=== PATIENT | female | born 1950 | race Caucasian/White ===

== ENCOUNTER 2016-11-06 14:12 | Emergency (ER) | payer MEDICARE, OTHER ==
[2016-11-06 14:22] VITALS: BP 122/82; RESP 16
--- NOTE | 2016-11-06 16:00 | CT ---
EXAMINATION TYPE: CT brain cspine wo con DATE OF EXAM: 11/06/2016 COMPARISON: Prior CT brain 06/04/2005, MR brain 10/16/2010 HISTORY: Fall today with posterior injury CT DLP: 1321.4 mGycm Automated exposure control for dose reduction was used. TECHNIQUE: CT scan of the head and cervical spine are performed without contrast. FINDINGS: There is no acute intracranial hemorrhage, mass effect, or midline shift identified. Cor tical atrophy is likely age-related. There are cerebral vascular calcifications present. The ventricl es and sulci are within normal limits in size. The globes are intact and the visualized sinuses are clear. Cervical spine is visualized in its entirety from C1 through upper thoracic levels and demonstrates s atisfactory alignment without evidence of acute fracture or dislocation. Prevertebral soft tissue ap pears within normal limits. There is multilevel spondylosis with some loss of disc height and interv ertebral levels compatible with degenerative disc disease, multilevel foraminal encroachment is prese nt. No significant spinal stenosis. The C1-C2 articulation is unremarkable. IMPRESSION: 1. There is no acute fracture or dislocation evident in the cervical spine. 2. No acute intracranial hemorrhage, mass effect, or midline shift is seen.
--- NOTE | 2016-11-06 16:30 | ED ---
Fall HPI - General Chief Complaint: Fall Stated Complaint: Fall-Head Pain Source: patient, family Mode of arrival: wheelchair - History of Present Illness Initial Comments: 66-year-old female with past medical history hyperlipidemia, hypertension, seizure disorder, tremor disorder presented for evaluation of fall from standing. [place] programs that her longterm goes to. She states that she had no lightheadedness, dizziness, syncope but lost her balance and fell backwards landing on her back and hitting the back of her head on the ground. She denies any loss of consciousness, change in vision, headache, neck pain, back pain, lower extremity weakness, GI irregularities, or saddle anesthesia. - Related Data Home Medications Medication Instructions Recorded Confirmed Aspirin [Aspir-Low] 81 mg PO DAILY@0800 04/19/15 11/06/16 Cholecalciferol [Vitamin D3] 1,000 unit PO DAILY@0804/19/15 11/06/16 Darifenacin Hydrobromide [Enablex] 7.5 mg PO DAILY@0804/19/15 11/06/16 Gabapentin 300 mg PO TID@0800,1600,199904/19/15 11/06/16 Propranolol HCl [Inderal LA] 120 mg PO DAILY@79904/19/15 11/06/16 Simvastatin 40 mg PO DAILY@0804/19/15 11/06/16 Vitamin B Complex 1 cap PO DAILY@0800 04/19/15 11/06/16 ARIPiprazole [Abilify] 5 mg PO HS@2100 11/06/16 11/06/16 Betamethasone/Propylene Glyc 1 applic TOPICAL BID@08,199911/06/16 11/06/16 [Betamethasone Dp Aug 0.05% Lot] Clotrimazole [Clotrimazole AF] 1 applic TOPICAL BID@799,199911/06/16 11/06/16 DULoxetine HCL [Cymbalta] 60 mg PO BID@799,199911/06/16 11/06/16 LORazepam [Ativan] 0.5 mg PO DAILY PRN 11/06/16 11/06/16 Nystatin 100,000Unit/gm Cream 1 applic TOPICAL BID@799,199911/06/16 11/06/16 [Mycostatin Cream] busPIRone HCL 15 mg PO QID@08,12,16,20 11/06/16 11/06/16 Allergies Allergy/AdvReac Type Severity Reaction Status Date / Time No Known Allergies Allergy Verified 11/06/16 15:03 Review of Systems ROS Statement: Those systems with pertinent positive or pertinent negative responses have been documented in the HPI. ROS Other: All systems not noted in ROS Statement are negative. Constitutional: Denies: fever, chills Eyes: Denies: eye pain, vision change ENT: Denies: hearing loss, epistaxis Respiratory: Denies: cough, dyspnea Cardiovascular: Denies: chest pain, palpitations Endocrine: Denies: fatigue, polydipsia, polyuria Gastrointestinal: Denies: abdominal pain, nausea, vomiting Genitourinary: Denies: urgency, dysuria Musculoskeletal: Denies: back pain, arthralgia, myalgia Skin: Denies: rash, lesions Neurological: Denies: headache, weakness Psychiatric: Denies: anxiety, depression Hematological/Lymphatic: Denies: easy bleeding, easy bruising Past Medical History Past Medical History: Hyperlipidemia, Hypertension, Seizure Disorder Additional Past Medical History / Comment(s): FAILED STRESS TEST, PAST HX OF SEIZURE, NONE IN YEARS, TREMOR DISORDER History of Any Multi-Drug Resistant Organisms: None Reported Past Surgical History: Adenoidectomy, Tonsillectomy Additional Past Surgical History / Comment(s): CATARACT SX, AMPUTATED RING FINGER Past Anesthesia/Blood Transfusion Reactions: No Reported Reaction Past Psychological History: Anxiety, Depression Smoking Status: Never smoker - Past Family History Mother Family Medical History: AFIB, Myocardial Infarction ([place]) Father Family Medical History: CVA/TIA General Exam Limitations: no limitations General appearance: alert, in no apparent distress Head exam: Present: atraumatic, normocephalic, normal inspection Eye exam: Present: normal appearance, PERRL, EOMI. Absent: scleral icterus, conjunctival injection, periorbital swelling ENT exam: Present: normal exam, mucous membranes moist Neck exam: Present: normal inspection. Absent: tenderness, meningismus, lymphadenopathy Respiratory exam: Present: normal lung sounds bilaterally. Absent: respiratory distress, wheezes, rales, rhonchi, stridor Cardiovascular Exam: Present: regular rate, normal rhythm, normal heart sounds. Absent: systolic murmur, diastolic murmur, rubs, gallop, clicks GI/Abdominal exam: Present: soft, normal bowel sounds. Absent: distended, tenderness, guarding, rebound, rigid Rectal exam: Present: deferred Extremities exam: Present: normal inspection, full ROM, normal capillary refill. Absent: tenderness, pedal edema, joint swelling, calf tenderness Back exam: Present: normal inspection Neurological exam: Present: alert, oriented X3, CN II-XII intact, other ( resting tremor) Psychiatric exam: Present: normal affect, normal mood Skin exam: Present: warm, dry, intact, normal color. Absent: rash Course Vital Signs 11/06/16 11/06/16 11/06/16 14:14 15:34 16:34 Temperature 97.1 F L 97.2 F L Pulse Rate 70 70 75 Respiratory 16 18 18 Rate Blood Pressure 122/82 126/80 124/78 O2 Sat by Pulse 98 98 99 Oximetry 11/06/16 16:40 Temperature 98.6 F Pulse Rate 75 Respiratory 16 Rate Blood Pressure 122/82 O2 Sat by Pulse 99 Oximetry Medical Decision Making - Medical Decision Making 66-year-old female with history of a resting tremor presented for evaluation of a mechanical fall from standing and hitting her head on the ground. She denies any loss of consciousness, and the granulation use, or resultant head neck or back pain. She was able to get up on her own and continue ambulating however she was sent by the longterm for further evaluation. On physical examination cranial nerves II through XII are intact with the only abnormality being a resting tremor. There is no pain to palpation along the neck or back however she does have minor tenderness to the back of her head. CT head and neck obtained which showed no acute intraparenchymal hemorrhage or cervical abnormalities. The patient was reevaluated and stated she continued to feel fine and requested to be discharged home. She was informed of results and that she would be instructed to follow-up with her primary care physician but to return to this facility if her symptoms should worsen or persist. The patient and her care worker acknowledged an understanding of this information and agreed with this plan of care. Disposition Clinical Impression: Fall, Closed head injury Disposition: HOME SELF-CARE Condition: Stable Instructions: Fall Prevention for Older Adults (ED) Referrals: Charlee Morrison MD [Primary Care Provider] - 1-2 days Time of Disposition: 16:30
[2016-11-06 16:41] VITALS: PULSE 75; TEMP 98.6
== END 2016-11-06 16:40 | disposition home or self-care (01) ==
LOC: EC 14:12
DX: S09.90XA Unspecified injury of head, initial encounter (principal); E78.5 Hyperlipidemia, unspecified; I10 Essential (primary) hypertension; G40.909 Epilepsy, unspecified, not intractable, without status epilepticus; F32.9 Major depressive disorder, single episode, unspecified; F41.9 Anxiety disorder, unspecified; Z79.82 Long term (current) use of aspirin; Z79.52 Long term (current) use of systemic steroids; Z79.899 Other long term (current) drug therapy; W01.198A Fall on same level from slipping, tripping and stumbling with subsequent striking against other object, initial encounter; Y93.89 Activity, other specified; Y92.828 Other wilderness area as the place of occurrence of the external cause
CPT/HCPCS: 70450; 72125; 99283

== ENCOUNTER → 2017-01-12 | Outpatient (CLI) | payer MEDICARE, OTHER ==
--- NOTE | 2017-01-12 10:38 | MM ---
Reason for exam: additional evaluation requested from prior study. Last mammogram was performed 11 months ago. History: Patient is postmenopausal. Family history of breast cancer in mother at age 50, breast cancer in grandmother at age 50, and breast cancer in aunt at age 60. Physical Findings: Nurse did not find any significant physical abnormalities on exam. MG Diagnostic Mammo w CAD [facility] Bilateral CC and MLO view(s) were taken. Prior study comparison: February 10, 2016, bilateral MG 3d screening mammo w/cad. January 03, 2015, bilateral MG screening mammo w CAD. There are scattered fibroglandular densities. Finding: There are typically benign round calcifications in both breasts. There is no discrete abnormality. These results were verbally communicated with the patient and result sheet given to the patient on 01/12/17. ASSESSMENT: Benign, BI-RAD 2 RECOMMENDATION: Routine screening mammogram of both breasts in 1 year.
== END | disposition home or self-care (01) ==
LOC: RADMAMWWP 08:58
PROVIDERS: ATTEND Family Medicine
DX: R92.8 Other abnormal and inconclusive findings on diagnostic imaging of breast (principal)

== ENCOUNTER → 2017-10-26 | Outpatient (CLI) | payer MEDICARE, OTHER ==
--- NOTE | 2017-10-26 14:53 | BD ---
EXAMINATION TYPE: Axial Bone Density DATE OF EXAM: 10/26/2017 COMPARISON: NONE CLINICAL HISTORY: Postmenopausal female. Osteoporosis screening. Height: 62 IN Weight: 158 LBS RISK FACTORS HISTORY OF: Active: NOT ACTIVE Postmenopausal woman: UNKNOWN Take estrogen and/or progesterone medications: UNKNOWN POOR HISTORIAN. CAREGIVER HAS ONLY BEEN WITH PT FOR 3 YEARS. MEDICATIONS: Additional Medications: VIT D, CHOLESTEROL MEDS, ASPIRIN, MOOD MEDS, EXAM MEASUREMENTS: Bone mineral densitometry was performed using the [employer] System. Bone mineral density as measured about the Lumbar spine is: ----- L1-L4(G/cm2): 0.859 T Score Values are as follows: ----- L2: -3.2 ----- L3: -2.1 ----- L4: -2.2 ----- L1-L4: -2.7 Bone mineral density BASELINE Bone mineral density about the R hip (g/cm2): 0.706 Bone mineral density about the L hip (g/cm2): 0.695 T Score values are as follows: -----R Neck: -2.4 -----L Neck: -2.5 -----R Total: -1.4 -----L Total: -1.8 Bone mineral density BASELINE IMPRESSION: Osteopenia (T Score between -2.5 and -1). Values approach osteoporosis. There is slightly increased risk of fracture and the patient may be considered for treatment. Re-Screen 2-5 years. NOTE: T-SCORE=SD OF THE YOUNG ADULT MEAN.
== END | disposition home or self-care (01) ==
LOC: RADBDWWP 08:39
PROVIDERS: ATTEND Family Medicine
DX: M85.89 Other specified disorders of bone density and structure, multiple sites (principal); Z78.0 Asymptomatic menopausal state
CPT/HCPCS: 77080

== ENCOUNTER → 2018-03-01 | Outpatient (CLI) | payer MEDICARE, OTHER ==
--- NOTE | 2018-03-02 14:58 | MM ---
Reason for exam: screening (asymptomatic). Last mammogram was performed 1 year and 2 months ago. History: Patient is postmenopausal. Family history of breast cancer in mother at age 50, breast cancer in grandmother at age 50, and breast cancer in aunt at age 60. Physical Findings: A clinical breast exam by your physician is recommended on an annual basis and results should be correlated with mammographic findings. MG 3D Screening Mammo W/Cad Bilateral CC and MLO view(s) were taken. Prior study comparison: January 12, 2017, bilateral MG diagnostic mammo w CAD [facility]COL[facility]. February 10, 2016, bilateral MG 3d screening mammo w/cad. There are scattered fibroglandular densities. There is no discrete abnormality. No significant changes when compared with prior studies. ASSESSMENT: Negative, BI-RAD 1 RECOMMENDATION: Routine screening mammogram of both breasts in 1 year.
== END | disposition home or self-care (01) ==
LOC: RADMAMWWP 08:17
PROVIDERS: ATTEND Family Medicine
DX: Z12.31 Encounter for screening mammogram for malignant neoplasm of breast (principal)
CPT/HCPCS: 77063; 77067

== ENCOUNTER → 2023-03-11 | Outpatient (CLI) | payer MEDICARE, OTHER ==
--- NOTE | 2023-03-11 13:34 | BD ---
EXAMINATION TYPE: Axial Bone Density DATE OF EXAM: 03/11/2023 CLINICAL HISTORY: 73 years old Female. ICD-10 CODE: M81.0 AGE-RELATED OSTEOPOROSIS W/O CURRENT PATHO LO Height: 62" Weight: 148.5lbs FRAX RISK QUESTIONS: Alcohol (3 or more units per day): No Family History (Parent hip fracture): Yes, Father Glucocorticoids (More than 3mos): No (Ex: prednisone, prednisolone, methylprednisolone, dexamethasone, and hydrocortisone). History of Fracture in Adulthood: Yes, finger Secondary Osteoporosis: 1. Type 1 Diabetes: No 2. Hyperthyroidism: No 3. Menopause before 45: No 4. Malnutrition: No 5. Chronic liver disease: No Rheumatoid Arthritis: Yes Current Tobacco Use: No RISK FACTORS HISTORY OF: Hip Fracture (Right/Left): No Spine Fracture: No History of Wrist Fracture: No Surgery to Spine/Hip(right/left)/Wrist (right/left): No Family History of Osteoporosis: Unknown Active: Unknown Diet low in dairy products/other sources of calcium: No Postmenopausal woman: Yes Lost more than 2 inches in height since high school: Unknown Frequent falls: No Poor Health: Slightly Hyperparathyroidism: No Adrenal Insufficiency: No MEDICATIONS: Prednisone or other steroids: No Thyroid Medications: No Osteoporosis Medications: Fosamax Additional Medications: Medication list scanned into PACS Additional History: Patient is on treatment but was not aware of that information until after perform ing the bone density scan. senior care patient, answered history questions to the best of her and care takers ability. EXAM MEASUREMENTS: Bone mineral densitometry was performed using the [employer] System. Bone mineral density as measured about the Lumbar spine is: ----- L1-L4(G/cm2): 1.058 T Score Values are as follows: ----- L1: -1.7 ----- L2: -2.3 ----- L3: -0.6 ----- L4: 0.0 ----- L1-L4: -1.0 Z Score Values are as follows: ----- L1: -0.1 ----- L2: -0.6 ----- L3: 1.0 ----- L4: 1.7 ----- L1-L4: 0.6 Bone mineral density has: increased 23.2% since study of: 10/26/2017 Bone mineral density about the R hip (g/cm2): 0.877 Bone mineral density about the L hip (g/cm2): 0.813 T Score values are as follows: -----R Neck: -2.1 -----L Neck: -2.1 -----R Total: -1.0 -----L Total: -1.5 Z Score values are as follows: -----R Neck: -0.3 -----L Neck: -0.3 -----R Total: 0.6 -----L Total: 0.1 Bone mineral density has: increased 4.8% since study of: 10/26/2017 FRAX%s: The graph provided illustrates a 20.9% chance for a major osteoporotic fx and a 5.1% chance f or the hips probability for fx in 10 years time. IMPRESSION: Osteopenia (T Score between -2.5 and -1). There is slightly increased risk of fracture and the patient may be considered for treatment. Re-Screen 2-5 years. NOTE: T-SCORE=SD OF THE YOUNG ADULT MEAN.
== END | disposition home or self-care (01) ==
LOC: RADBDWWP 11:23
PROVIDERS: ATTEND Family Medicine
DX: M81.0 Age-related osteoporosis without current pathological fracture (principal); M85.89 Other specified disorders of bone density and structure, multiple sites; Z78.0 Asymptomatic menopausal state
CPT/HCPCS: 77080

== ENCOUNTER 2023-05-25 18:44 | Inpatient (IN) | payer MEDICARE, OTHER ==
[2023-05-25] MEDS: ACETAMINOPHEN TAB 500 MG TAB PO STA (19:44)
[2023-05-25] MEDS: SODIUM CHLORIDE 0.9% 1,000 ML IV STA (19:47)
--- NOTE | 2023-05-25 19:47 | ED ---
Fever HPI - General Chief Complaint: Fever Stated Complaint: Weakness Time Seen by Provider: 05/25/23 19:45 Source: family, EMS, RN notes reviewed, Caregiver Mode of arrival: EMS Limitations: physical limitation - History of Present Illness Initial Comments: Patient is a 73-year-old female presenting to the ER via EMS with a chief complaint of a fever and weakness. Patient is a resident at a shelter. HPI provided by family, EMS and imaging center manager. They state patient recently finished Bactrim for UTI. They state on Wednesday patient had a fall and was acting abnormal after the fall. Patient was walking. Wednesday morning patient was having difficulty doing ADLs and needed assistance. Patient also has been having difficulty swallowing and walking which is abnormal for her. Patient was interacting appropriately with shelter staff. supervisor brake repair reports today patient was acting confused and had increased in her tremor. They tested her for COVID as she had these symptoms in the past when positive for COVID. Swab was negative. Patient brought in by EMS for evaluation. EMS state axillary temp of 102. Patient denies any current pain. - Related Data Home Medications Medication Instructions Recorded Confirmed Aspirin [Aspir-Low] 81 mg PO DAILY@0800 04/19/15 11/06/16 Cholecalciferol [Vitamin D3 (25 1,000 unit PO DAILY@79904/19/15 11/06/16 Mcg = 1000 Iu)] Darifenacin Hydrobromide [Enablex] 7.5 mg PO DAILY@0800 04/19/15 11/06/16 Gabapentin 300 mg PO TID@0800,1600,199904/19/15 11/06/16 Propranolol HCl [Inderal LA] 120 mg PO DAILY@0804/19/15 11/06/16 Simvastatin 40 mg PO DAILY@0800 04/19/15 11/06/16 Vitamin B Complex 1 cap PO DAILY@79904/19/15 11/06/16 ARIPiprazole [Abilify] 5 mg PO HS@209911/06/16 11/06/16 Betamethasone/Propylene Glyc 1 applic TOPICAL BID@0800,199911/06/16 11/06/16 [Betamethasone Dp Aug 0.05% Lot] Clotrimazole [Clotrimazole AF] 1 applic TOPICAL BID@0800,199911/06/16 11/06/16 DULoxetine HCL [Cymbalta] 60 mg PO BID@0800,199911/06/16 11/06/16 LORazepam [Ativan] 0.5 mg PO DAILY PRN 11/06/16 11/06/16 Nystatin 100,000Unit/gm Cream 1 applic TOPICAL BID@08,199911/06/16 11/06/16 [Mycostatin Cream] busPIRone HCL 15 mg PO QID@08,12,16,20 11/06/16 11/06/16 Allergies Allergy/AdvReac Type Severity Reaction Status Date / Time No Known Allergies Allergy Verified 11/06/16 15:03 Review of Systems ROS Statement: Those systems with pertinent positive or pertinent negative responses have been documented in the HPI. ROS Other: All systems not noted in ROS Statement are negative. Past Medical History Past Medical History: Hyperlipidemia, Hypertension, Seizure Disorder Additional Past Medical History / Comment(s): FAILED STRESS TEST, PAST HX OF SEIZURE, NONE IN YEARS, TREMOR DISORDER, developmental disorder. History of Any Multi-Drug Resistant Organisms: None Reported Past Surgical History: Adenoidectomy, Tonsillectomy Additional Past Surgical History / Comment(s): CATARACT SX, AMPUTATED RING FINGER Past Anesthesia/Blood Transfusion Reactions: No Reported Reaction Past Psychological History: Anxiety, Depression Smoking Status: Never smoker Past Alcohol Use History: None Reported Past Drug Use History: None Reported - Past Family History Mother Family Medical History: AFIB, Myocardial Infarction ([place]) Father Family Medical History: CVA/TIA General Exam Limitations: physical limitation General appearance: alert Head exam: Present: atraumatic, normocephalic, normal inspection Eye exam: Present: normal appearance, PERRL, EOMI. Absent: scleral icterus, conjunctival injection, periorbital swelling Respiratory exam: Present: normal lung sounds bilaterally. Absent: respiratory distress, wheezes, rales, rhonchi, stridor Cardiovascular Exam: Present: regular rate, normal rhythm, normal heart sounds. Absent: systolic murmur, diastolic murmur, rubs, gallop, clicks GI/Abdominal exam: Present: soft, normal bowel sounds. Absent: distended, tenderness, guarding, rebound, rigid Extremities exam: Present: normal inspection, full ROM, normal capillary refill. Absent: tenderness, pedal edema, joint swelling, calf tenderness Neurological exam: Present: alert, oriented X3, CN II-XII intact Psychiatric exam: Present: normal affect, normal mood Skin exam: Present: warm, intact, normal color, diaphoretic Course Vital Signs 05/25/23 05/25/23 05/25/23 18:51 21:15 22:00 Temperature 102.3 F H 99.9 F H 99.7 F H Pulse Rate 97 98 87 Respiratory 18 20 18 Rate Blood Pressure 101/57 101/57 103/56 O2 Sat by Pulse 94 L 95 98 Oximetry 05/25/23 23:00 Temperature 98.9 F Pulse Rate 85 Respiratory 18 Rate Blood Pressure 105/58 O2 Sat by Pulse 97 Oximetry Medical Decision Making - Medical Decision Making Was pt. sent in by a medical professional or institution (, PA, HOSPICE VOLUNTEER, urgent care, hospital, or prison...) When possible be specific @ -No Did you speak to anyone other than the patient for history (EMS, parent, family, police, friend...)? What history was obtained from this source @ -Family and farm management supervisor providing HPI and past medical history. Did you review nursing and triage notes (agree or disagree)? Why? @ -I reviewed and agree with nursing and triage notes Were old charts reviewed (outside hosp., previous admission, EMS record, old EKG, old radiological studies, urgent care reports/EKG's, prison records)? Report findings @ -No old charts were reviewed Differential Diagnosis (chest pain, altered mental status, abdominal pain women, abdominal pain men, vaginal bleeding, weakness, fever, dyspnea, syncope, headache, dizziness, GI bleed, back pain, seizure, CVA, palpatations, mental health, musculoskeletal)? @ -Differential Fever:Pneumonia, viral URI, endocarditis, myocarditis, pericarditis, otitis, sinusitis, peritonsillar Abscess, retropharyngeal Abscess, epiglottitis, peritonitis, appendicitis, Freya cystitis, diverticulitis, hepatitis, colitis, UTI, PID, TOA, pyelonephritis, prostatitis, epididymitis, meningitis, encephalitis, pulmonary embolism, CVA, thyroid storm, pancreatitis, adrenal crisis, cavernous sinus thrombosis, this is not meant to be an all- inclusive list. EKG interpreted by me (3pts min.). @ -As above X-rays interpreted by me (1pt min.). @ -Chest x-ray interpreted by me shows no acute cardiopulmonary process. CT interpreted by me (1pt min.). @ -CT brain C-spine interpreted by me shows no acute intracranial process. U/S interpreted by me (1pt. min.). @ -None done What testing was considered but not performed or refused? (CT, X-rays, U/S, labs)? Why? @ -None What meds were considered but not given or refused? Why? @ -None Did you discuss the management of the patient with other professionals (professionals i.e. , PA, HOSPICE VOLUNTEER, lab, RT, psych nurse, manager social services, tree sapper, teacher, risk control officer, case picker)? Give summary @ -Yes, I discussed this case with Dr. Angelo from [facility] who accepts medical admission. Was smoking cessation discussed for >3mins.? @ -No Was critical care preformed (if so, how long)? @ -No Were there social determinants of health that impacted care today? How? (Homelessness, low income, unemployed, alcoholism, drug addiction, transportation, low edu. Level, literacy, decrease access to med. care, snf, rehab)? @ -Lives in shelter Was there de-escalation of care discussed even if they declined (Discuss DNR or withdrawal of care, Hospice)? DNR status @ -No What co-morbidities impacted this encounter? (DM, HTN, Smoking, COPD, CAD, Cancer, CVA, ARF, Chemo, Hep., AIDS, mental health diagnosis, sleep apnea, morbid obesity)? @ -None Was patient admitted / discharged? Hospital course, mention meds given and route, prescriptions, significant lab abnormalities, going to OR and other p ertinent info. @ -Admitted. Patient is a 73-year-old female presented to ER with chief complaint of weakness and fever. History and physical exam completed. On arrival patient had an axillary temperature of 102.5. Other vital stable. Patient denies any current pain on exam. No abdominal pain on palpitation. No signs of acute distress but was diaphoretic and warm to touch. Patient did have a resting tremor which is chronic for her. Labs obtained in the ER significant for sodium 134, AST 280, ALT 40, alk phos 361. Urine shows 1+ bilirubin small amount of blood. Blood contributed to recent UTI. Influenza, RSV, COVID-negative. EKG showed normal sinus rhythm without acute ST segment or T wave abnormalities. Chest x-ray interpreted by me shows no acute cardiopulmonary process. CT brain C-spine was completed due to recent fall which was negative for acute process. Patient received by mouth Tylenol with improvement of fever to 99.9. Patient also received IV fluids. Upon reevaluation, patient was ambulated. Per trolley worker at bedside patient seemed weak and unsteady when walking. Due to concern of weakness and fever of unknown source admission was considered. I spoke with Dr. Angelo from [facility] who accepted medical admission. Gallbladder ultrasound and blood cultures pending. IV Zosyn started. ID on consult. Patient and family in agreement with admission. Patient will be admitted for further care and treatment. Case discussed with ED attending, Dr. Savage. Undiagnosed new problem with uncertain prognosis? @ -No Drug Therapy requiring intensive monitoring for toxicity (Heparin, Nitro, Insulin, Cardizem)? @ -No Were any procedures done? @ -No Diagnosis/symptom? @ -Transaminitis/fever Acute, or Chronic, or Acute on Chronic? @ -Acute Uncomplicated (without systemic symptoms) or Complicated (systemic symptoms)? @ -Uncomplicated Side effects of treatment? @ -No Exacerbation, Progression, or Severe Exacerbation? @ -No Poses a threat to life or bodily function? How? (Chest pain, [place], [place], pneumonia, PE, COPD, DKA, ARF, appy, cholecystitis, CVA, Diverticulitis, Homicidal, Suicidal, threat to staff... and all critical care pts) @ -No - Lab Data Result diagrams: 05/25/23 19:24 05/25/23 19:24 Lab Results 05/25/23 05/25/23 05/25/23 Range/Units 19:24 19:24 19:24 WBC 9.8 (3.8-10.6) k/uL RBC 4.12 (3.80-5.40) m/uL Hgb 11.9 (11.4-16.0) gm/dL Hct 36.3 (34.0-46.0) % MCV 88.1 (80.0-100.0) fL MCH 28.8 (25.0-35.0) pg MCHC 32.7 (31.0-37.0) g/dL RDW 14.5 (11.5-15.5) % Plt Count 204 (150-450) k/uL MPV 7.5 Neutrophils % 87 % Lymphocytes % 7 % Monocytes % 3 % Eosinophils % 1 % Basophils % 0 % Neutrophils # 8.5 H (1.3-7.7) k/uL Lymphocytes # 0.7 L (1.0-4.8) k/uL Monocytes # 0.3 (0-1.0) k/uL Eosinophils # 0.1 (0-0.7) k/uL Basophils # 0.0 (0-0.2) k/uL Sodium 134 L (137-145) mmol/L Potassium 4.6 (3.5-5.1) mmol/L Chloride 102 (98-107) mmol/L Carbon Dioxide 23 (22-30) mmol/L Anion Gap 9 mmol/L BUN 19 H (7-17) mg/dL Creatinine 1.00 (0.52-1.04) mg/dL Est GFR (CKD-EPI)AfAm 65 (>60 ml/min/1.73 sqM) Est GFR (CKD-EPI)NonAf 56 (>60 ml/min/1.73 sqM) Glucose 119 H (74-99) mg/dL Plasma Lactic Acid Kwaku 1.1 (0.7-2.0) mmol/L Calcium 8.4 (8.4-10.2) mg/dL Total Bilirubin 1.3 (0.2-1.3) mg/dL AST 280 H (14-36) U/L ALT 40 H (4-34) U/L Alkaline Phosphatase 361 H (38-126) U/L Total Protein 6.5 (6.3-8.2) g/dL Albumin 3.7 (3.5-5.0) g/dL Amylase (30-110) U/L Lipase (23-300) U/L Urine Color Urine Appearance (Clear) Urine pH (5.0-8.0) Ur Specific [place] (1.001-1.035) Urine Protein (Negative) Urine Glucose (UA) (Negative) Urine Ketones (Negative) Urine Blood (Negative) Urine Nitrite (Negative) Urine Bilirubin (Negative) Urine Urobilinogen (<2.0) mg/dL Ur Leukocyte Esterase (Negative) Urine RBC (0-5) /hpf Urine WBC (0-5) /hpf Ur Squamous Epith Cells (0-4) /hpf Urine Mucus (None) /hpf Influenza Type A (PCR) (Not Detectd) Influenza Type B (PCR) (Not Detectd) RSV (PCR) (Not Detectd) SARS-CoV-2 (PCR) (Not Detectd) 05/25/23 05/25/23 05/25/23 Range/Units 20:13 20:13 20:48 WBC (3.8-10.6) k/uL RBC (3.80-5.40) m/uL Hgb (11.4-16.0) gm/dL Hct (34.0-46.0) % MCV (80.0-100.0) fL MCH (25.0-35.0) pg MCHC (31.0-37.0) g/dL RDW (11.5-15.5) % Plt Count (150-450) k/uL MPV Neutrophils % % Lymphocytes % % Monocytes % % Eosinophils % % Basophils % % Neutrophils # (1.3-7.7) k/uL Lymphocytes # (1.0-4.8) k/uL Monocytes # (0-1.0) k/uL Eosinophils # (0-0.7) k/uL Basophils # (0-0.2) k/uL Sodium (137-145) mmol/L Potassium (3.5-5.1) mmol/L Chloride (98-107) mmol/L Carbon Dioxide (22-30) mmol/L Anion Gap mmol/L BUN (7-17) mg/dL Creatinine (0.52-1.04) mg/dL Est GFR (CKD-EPI)AfAm (>60 ml/min/1.73 sqM) Est GFR (CKD-EPI)NonAf (>60 ml/min/1.73 sqM) Glucose (74-99) mg/dL Plasma Lactic Acid [place] (0.7-2.0) mmol/L Calcium (8.4-10.2) mg/dL Total Bilirubin (0.2-1.3) mg/dL AST (14-36) U/L ALT (4-34) U/L Alkaline Phosphatase (38-126) U/L Total Protein (6.3-8.2) g/dL Albumin (3.5-5.0) g/dL Amylase 79 (30-110) U/L Lipase 234 (23-300) U/L Urine Color Yellow Urine Appearance Clear (Clear) Urine pH 7.0 (5.0-8.0) Ur Specific [place] 1.030 (1.001-1.035) Urine Protein 1+ H (Negative) Urine Glucose (UA) Negative (Negative) Urine Ketones Negative (Negative) Urine Blood Small H (Negative) Urine Nitrite Negative (Negative) Urine Bilirubin 1+ H (Negative) Urine Urobilinogen 3.0 (<2.0) mg/dL Ur Leukocyte Esterase Trace H (Negative) Urine RBC 42 H (0-5) /hpf Urine WBC 7 H (0-5) /hpf Ur Squamous Epith Cells 1 (0-4) /hpf Urine Mucus Rare H (None) /hpf Influenza Type A (PCR) Not Detected (Not Detectd) Influenza Type B (PCR) Not Detected (Not Detectd) RSV (PCR) Not Detected (Not Detectd) SARS-CoV-2 (PCR) Not Detected (Not Detectd) - EKG Data -: EKG Interpreted by [place] EKG Comments: EKG taken at 22: 17 shows sinus rhythm with no acute ST segment or T wave abnormalities. There is artifact present in all leads. Ventricular rate 70, NM interval 169, QRS duration 85, QT/QTc 401/422. - Radiology Data Radiology results: report reviewed, image reviewed Disposition Clinical Impression: Fever, Transaminitis, Weakness Disposition: ADMITTED IP TO THIS [facility] Condition: Fair Time of Disposition: 23:58
[2023-05-25 19:55] LABS: Basophils % (A) 0 %; Eosinophils # (A) 0.1 k/uL (0-0.7); Eosinophils % (A) 1 %; HCT 36.3 % (34.0-46.0); HGB 11.9 gm/dL (11.4-16.0); Lymphocytes # (A) 0.7 k/uL (1.0-4.8); Lymphocytes % (A) 7 %; MCH 28.8 pg (25.0-35.0); MCHC 32.7 g/dL (31.0-37.0); MCV 88.1 fL (80.0-100.0); Mean Platelet Volume 7.5; Monocytes # (A) 0.3 k/uL (0-1.0); Monocytes % (A) 3 %; Neutrophils # (A) 8.5 k/uL (1.3-7.7); Neutrophils % (A) 87 %; Platelet Count 204 k/uL (150-450); RBC 4.12 m/uL (3.80-5.40); RDW 14.5 % (11.5-15.5); WBC 9.8 k/uL (3.8-10.6)
--- NOTE | 2023-05-25 20:00 | XR ---
EXAMINATION TYPE: XR chest 2V DATE OF EXAM: 05/25/2023 COMPARISON: 04/22/2015 HISTORY: 73-year-old female with fever TECHNIQUE: AP and lateral views FINDINGS: Heart upper limits of normal in size. Mild hyperinflation. Mild interstitial density without consolid ation or pleural effusion. IMPRESSION: Borderline heart size. Correlate for bronchitis or asthma. Possible underlying COPD. No focal infiltr ate.
[2023-05-25 20:15] LABS: ALT 40 U/L (4-34); AST 280 U/L (14-36); African American GFR (CKD) 65 (>60 ml/min/1.73 sqM); Albumin 3.7 g/dL (3.5-5.0); Alkaline Phosphatase 361 U/L (38-126); Anion Gap 9 mmol/L; Blood Urea Nitrogen 19 mg/dL (7-17); Calcium 8.4 mg/dL (8.4-10.2); Carbon Dioxide 23 mmol/L (22-30); Chloride 102 mmol/L (98-107); Glucose 119 mg/dL (74-99); Non-African American GFR(CKD) 56 (>60 ml/min/1.73 sqM); Potassium 4.6 mmol/L (3.5-5.1); Sodium 134 mmol/L (137-145); Total Bilirubin 1.3 mg/dL (0.2-1.3); Total Protein 6.5 g/dL (6.3-8.2)
[2023-05-25 20:39] LABS: Appearance,Urine Clear (Clear); Bilirubin,Urine 1+ (Negative); Blood,Urine Small (Negative); Color,Urine Yellow; Glucose,Urine (UA) Negative (Negative); Ketones,Urine Negative (Negative); Leukocyte Esterase,Urine Trace (Negative); Mucus,Urine Rare /hpf; Nitrite,Urine Negative (Negative); Protein,Urine 1+ (Negative); RBC,Urine 42 /hpf (0-5); Squamous Epithelial Cell,Urine 1 /hpf (0-4); WBC,Urine 7 /hpf (0-5)
[2023-05-25 21:33] LABS: Amylase 79 U/L (30-110); Lipase 234 U/L (23-300)
--- NOTE | 2023-05-25 21:53 | CT ---
EXAMINATION TYPE: CT brain csphan rodríguez con DATE OF EXAM: 05/25/2023 COMPARISON: 11/06/2016 HISTORY: 73-year-old female with pain after Fall CT DLP: 1316.8 mGycm Automated exposure control for dose reduction was used. Technique: Examination of the head was done in axial plane without intravenous contrast. Coronal and sagittal reconstructions performed. CT of the cervical spine was obtained in axial plane without intravenous injection of contrast mater ial. Coronal and sagittal reformatted images were obtained from the axial views for evaluation of f ractures, spinal alignment and canal. FINDINGS: Head: There is no evidence of acute intracranial hemorrhage, acute ischemic changes, mass, mass-effect, or extra-axial fluid collection. There is no effacement of cerebral sulci or basal subarachnoid cister ns. There is no hydrocephalus. There is no midline shift. Rao-white matter distinction is preserv ed. There is mild bifrontal cerebral volume loss. Normal variation with persistent CSP. Mild mucosal thickening ethmoid air cells. Cerumen in right external auditory canal. Myopic appearanc e to the globes. Cervical spine: Rounded enlargement of the left lobe of the thyroid gland appears increased from 2017 measuring up to 3.3 cm. Dedicated thyroid ultrasound evaluation recommended to assess for potential underlying nodul e. The alignment of the cervical spine is normal on coronal and reformatted images. There is no cranial vertebral abnormality. Fracture of the cervical spine is not seen. Reversal of the normal cervical l ordosis but otherwise preserved alignment. Variable mild neuroforaminal stenoses due to mild facet an d uncovertebral joint arthropathy. There is no evidence of focal disk herniation. There is no central spinal canal stenosis. Sagittal and coronal reformatted images confirm above findings. COMBINED IMPRESSION: 1. No acute intracranial abnormality seen. Similar mild bifrontal atrophy. 2. No acute fracture or malalignment in the cervical spine. 3. Rounded enlargement of the left lobe of the thyroid gland measuring up to 3.3 cm. Recommend outpat ient thyroid ultrasound evaluation to exclude an underlying nodule and assess the need for FNA.
[2023-05-25] MEDS: KETOROLAC 15 MG/ML 1 ML VIAL IVP STA (22:15)
[2023-05-25] MEDS ORDERED: NALOXONE 0.4 MG/ML 1 ML VIAL IV PRN (23:13)
[2023-05-25] MEDS ORDERED: KETOROLAC 15 MG/ML 1 ML VIAL IVP PRN (23:13)
--- NOTE | 2023-05-25 23:57 | US ---
EXAMINATION TYPE: US gallbladder DATE OF EXAM: 05/25/2023 COMPARISON: NONE CLINICAL INDICATION: Female, 73 years old with history of transaminitis; transaminitis Patient unable to roll on side or hold breath. Exam limited TECHNIQUE: Multiple sonographic images of the right upper quadrant are obtained. 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 2 cysts seen. Largest at mid pole = 3.5 x 3.7 x 2.8cm Suboptimal study. Visualized pancreas is unremarkable. Visualized liver shows some heterogeneity with out obvious mass or ductal dilatation. Gallbladder shows no mobile shadowing gallstones. No right-gregory ed hydronephrosis is seen. There is increased cortical echogenicity in the right kidney consistent wi th chronic medical renal disease as there are few simple appearing thin-walled cysts also present. IMPRESSION: Suboptimal study, no biliary dilatation is identified.
[2023-05-26] MEDS: PIPERACILLIN-TAZOBACTAM 3.375 GM in SODIUM CHLORIDE 0.9% 100 ML IVPB STA
[2023-05-26] MEDS: SODIUM CHLORIDE 0.9% 1,000 ML IV SCH (00:45)
[2023-05-26] MEDS: SODIUM CHLORIDE 0.9% 1,000 ML IV ONE (00:45)
[2023-05-26] MEDS: SODIUM CHLORIDE 0.9% 500 ML 500 ML IV ONE (02:14)
[2023-05-26] MEDS ORDERED: ACETAMINOPHEN TAB 325 MG TAB PO PRN (02:23)
--- NOTE | 2023-05-26 02:26 | P.HPIM ---
History of Present Illness H&P Date: 05/25/23 Chief Complaint: Fever, altered mental status 73-year-old female with hypertension hyperlipidemia Patient unable to provide any meaningful history at this time patient is a retirement resident, history obtained by chart review and discussing the case with ED staff Seems like patient has been noted to have decreased p.o. intake and increased confusion over the past few days it is reported that she possibly had a fall over the weekend after which she was acting confused with a big decline in his activities of daily living. She was recently treated for UTI with Bactrim. However on Wednesday she was improving and interacting better with staff and other residents but then today she appeared even more confused with increase in her tremors and difficulties with ambulating and eating. Patient was checked for COVID however the test was negative she had spiked a fever today EMS also confirmed a fever of 102 axillary for which she was brought into the hospital for further evaluation Upon my evaluation with the patient she seemed to be confused very slow to respond complaining of some abdominal distention and discomfort all over she is otherwise very unreliable but denies any chest pain or trouble breathing denies any nausea vomiting or changes in her bowel or urinary habits denies any GI bleeding No further meaningful history is obtainable at this time review of systems Pertinent positives as noted in HPI. All other systems were reviewed and are negative however this is very unreliable due to patient mental status on exam Constitutional: No acute distress, she seems to be confused, slow to respond and very unreliable. Patient making good eye contact Eyes: Anicteric sclerae, moist conjunctiva, Pupils equal round reactive to light ENMT: NC/AT Oropharynx clear, no erythema, or exudates Neck: Supple, no masses, or JVD No carotid bruits No thyromegaly Lungs: Clear to auscultation Clear to percussion Normal respiratory effort, no accessory muscle use Cardiovascular: Heart regular in rate and rhythm, No murmurs, gallops, or rubs No peripheral edema Abdominal: Mild to moderate distention Diffuse discomfort to deep palpation especially over the left side of the abdomen and suprapubic region, no guarding, rebound or rigidity Abdomen moving with respiration Normoactive bowel sounds No hepatomegaly, No splenomegaly No palpable mass No abdominal wall hernia noted Extremities: No digital cyanosis No clubbing Pedal pulses intact and symmetrical Radial pulses intact and symmetrical No calf tenderness Psychiatric: Alert and oriented to self only Neuro Muscles Strength 4 /5 in bilateral upper extremities 3 out of 5 in bilateral lower extremities Past Medical History Past Medical History: Hyperlipidemia, Hypertension, Seizure Disorder Additional Past Medical History / Comment(s): FAILED STRESS TEST, PAST HX OF SEIZURE, NONE IN YEARS, TREMOR DISORDER, developmental disorder. History of Any Multi-Drug Resistant Organisms: None Reported Past Surgical History: Adenoidectomy, Tonsillectomy Additional Past Surgical History / Comment(s): CATARACT SX, AMPUTATED RING FINGER Past Anesthesia/Blood Transfusion Reactions: No Reported Reaction Past Psychological History: Anxiety, Depression Smoking Status: Never smoker Past Alcohol Use History: None Reported Past Drug Use History: None Reported - Past Family History Mother Family Medical History: AFIB, Myocardial Infarction ([place]) Father Family Medical History: CVA/TIA Medications and Allergies Home Medications Medication Instructions Recorded Confirmed Type Aspirin [Aspir-Low] 81 mg PO DAILY@0800 04/19/15 11/06/16 History Cholecalciferol [Vitamin D3 (25 1,000 unit PO DAILY@79904/19/15 11/06/16 History Mcg = 1000 Iu)] Darifenacin Hydrobromide [Enablex] 7.5 mg PO DAILY@79904/19/15 11/06/16 History Gabapentin 300 mg PO TID@0800,1600,199904/19/15 11/06/16 History Propranolol HCl [Inderal LA] 120 mg PO DAILY@79904/19/15 11/06/16 History Simvastatin 40 mg PO DAILY@0804/19/15 11/06/16 History Vitamin B Complex 1 cap PO DAILY@79904/19/15 11/06/16 History ARIPiprazole [Abilify] 5 mg PO HS@209911/06/16 11/06/16 History Betamethasone/Propylene Glyc 1 applic TOPICAL BID@799,199911/06/16 11/06/16 History [Betamethasone Dp Aug 0.05% Lot] Clotrimazole [Clotrimazole AF] 1 applic TOPICAL BID@799,199911/06/16 11/06/16 History DULoxetine HCL [Cymbalta] 60 mg PO BID@08,199911/06/16 11/06/16 History LORazepam [Ativan] 0.5 mg PO DAILY PRN 11/06/16 11/06/16 History Nystatin 100,000Unit/gm Cream 1 applic TOPICAL BID@08,199911/06/16 11/06/16 History [Mycostatin Cream] busPIRone HCL 15 mg PO QID@08,12,16,20 11/06/16 11/06/16 History Allergies Allergy/AdvReac Type Severity Reaction Status Date / Time No Known Allergies Allergy Verified 11/06/16 15:03 Physical Exam Vitals: Vital Signs Temp Pulse Pulse Resp BP BP Pulse Ox 05/26/23 02:00 71 15 74/50 93 L 05/26/23 01:45 83/50 05/26/23 01:30 80/56 05/26/23 01:15 75/51 05/26/23 01:00 83/50 05/26/23 00:45 74/47 05/26/23 00:33 70/35 05/25/23 23:00 98.9 F 85 18 105/58 97 05/25/23 22:00 99.7 F H 87 18 103/56 98 05/25/23 21:15 99.9 F H 98 20 101/57 95 05/25/23 18:51 102.3 F H 97 18 101/57 94 L Intake and Output 05/25/23 05/25/23 05/26/23 14:59 22:59 06:59 Other: Voiding Method Diaper Bedside Commode Incontinent Weight 77.111 kg Results CBC & Chem 7: 05/25/23 19:24 05/25/23 19:24 Labs: Abnormal Lab Results - Last 24 Hours (Table) 05/25/23 05/25/23 05/25/23 Range/Units 19:24 19:24 20:13 Neutrophils # 8.5 H (1.3-7.7) k/uL Lymphocytes # 0.7 L (1.0-4.8) k/uL Sodium 134 L (137-145) mmol/L BUN 19 H (7-17) mg/dL Glucose 119 H (74-99) mg/dL AST 280 H (14-36) U/L ALT 40 H (4-34) U/L Alkaline Phosphatase 361 H (38-126) U/L Urine Protein 1+ H (Negative) Urine Blood Small H (Negative) Urine Bilirubin 1+ H (Negative) Ur Leukocyte Esterase Trace H (Negative) Urine RBC 42 H (0-5) /hpf Urine WBC 7 H (0-5) /hpf Urine Mucus Rare H (None) /hpf Assessment and Plan Assessment: 73-year-old female with hypertension hyperlipidemia she is a retirement resident was sent in today due to increased confusion abnormal behavior and fevers she had multiple falls over the past few days I discussed the case with ED doctor and accepted the admission for fever to rule out infectious process suspected intra-abdominal or UTI with anticipated length of stay more than 2 midnights Acute metabolic encephalopathy Severe sepsis with hypotension suspected intra-abdominal versus UTI source CT scan of the brain showed no acute intracranial pathology Chest x-ray showed no acute cardiothoracic process Acute respiratory viral panel negative for COVID, influenza, RSV Urine analysis had some leukocyte esterase, patient had recent UTI. Follow-up urine cultures Follow-up blood cultures Elevated liver enzymes AST 280 ALT 40 alkaline phosphatase 361 however bilirubin normal 1.3, liver ultrasound was unremarkable for any gallbladder distention or pathology Continue with Zosyn 3.375 g IV piggyback every 8 hours Tylenol for fever 650 mg every 4 hours as needed Aggressive IV fluid hydration total boluses given will be 2.5 L then continue with normal saline 125 cc/h Monitor urine output Follow-up CMP and CBC in the morning Fall precautions PT/OT eval If blood pressure continues to be low will consider 3 S. versus ICU for IV pressors Follow-up ID recommendations Hold statin due to elevated liver enzymes Hold propranolol due to hypotension Incidental finding of thyroid nodule consider outpatient follow-up with ultrasound and possible FNA Verify home medications CODE STATUS unknown DVT prophylaxis heparin subcu 3 times daily
[2023-05-26] MEDS: NOREPINEPHRINE 4 MG in SODIUM CHLORIDE 0.9% 250 ML IV SCH (04:05)
[2023-05-26 04:48] LABS: Glucose,Whole Blood 79 mg/dL (70-110)
[2023-05-26 05:34] LABS: HCT 37.8 % (34.0-46.0); HGB 11.8 gm/dL (11.4-16.0); Hypochromasia Moderate; MCH 28.7 pg (25.0-35.0); MCHC 31.2 g/dL (31.0-37.0); MCV 91.9 fL (80.0-100.0); Platelet Count 171 k/uL (150-450); RBC 4.12 m/uL (3.80-5.40); RDW 14.6 % (11.5-15.5); WBC 8.2 k/uL (3.8-10.6)
[2023-05-26 05:41] LABS: ALT 146 U/L (4-34); AST 199 U/L (14-36); African American GFR (CKD) 73 (>60 ml/min/1.73 sqM); Albumin 3.2 g/dL (3.5-5.0); Albumin/Globulin Ratio 1.2; Alkaline Phosphatase 290 U/L (38-126); Anion Gap 4 mmol/L; Blood Urea Nitrogen 18 mg/dL (7-17); Calcium 7.2 mg/dL (8.4-10.2); Carbon Dioxide 21 mmol/L (22-30); Chloride 111 mmol/L (98-107); Globulin 2.7 g/dL; Glucose 85 mg/dL (74-99); Non-African American GFR(CKD) 64 (>60 ml/min/1.73 sqM); Potassium 3.9 mmol/L (3.5-5.1); Sodium 136 mmol/L (137-145); Total Bilirubin 1.4 mg/dL (0.2-1.3); Total Protein 5.9 g/dL (6.3-8.2)
[2023-05-26] MEDS ORDERED: POTASSIUM CHLORIDE ER 20 MEQ TAB.ER PO SCH (06:00)
[2023-05-26] MEDS: POTASSIUM CHLORIDE 10 MEQ in WATER FOR INJECTION 1 100ML.BAG IVPB SCH (06:04)
--- NOTE | 2023-05-26 06:18 | P.CNPUL ---
History of Present Illness Consult date: 05/26/23 Requesting physician: Allen Langford Reason for consult: other (Sepsis, septic shock, ICU management) Chief complaint: Altered mental status, fever History of present illness: Patient is a 73-year-old white female with past medical history significant for developmental delay, resting tremors, seizure disorder, hypertension, hyperlipidemia. She lives at a residential. She is an unreliable historian. She has a legal guardian, which is her sister, who provides much of the information. Patient resides at a residential. Over the last week or so she has been more confused and weak. She has not been eating much. She had a fall on Wednesday. She was treated outpatient for UTI, and just completed a course of Bactrim. Patient was sent in via EMS for ER evaluation last night. On arrival, she was found to be febrile with a Tmax of 102.3 F. Urinalysis showed trace leukocytes, proteinuria, and trace hematuria. She does endorse some left flank tenderness. Chest x-ray showed borderline cardiomegaly, with mild interstitial densities, but without focal infiltrates. Negative for influenza, RSV, COVID on arrival. CBC on arrival: WBC count 9.8, hemoglobin 11.9, hematocrit 36.3, platelets 204. BMP on arrival: Sodium 134, potassium 4.6, chloride 102, serum bicarb 23, BUN 19, creatinine 1, glucose 119. LFTs mildly elevated including an AST of 280, ALT of 40, ALP of 361. Total bili 1.3. Pancreatic enzymes not elevated. Abdominal ultrasound does not show any obvious liver mass or biliary dilation or gallstones. No right-sided hydronephrosis. Lactic acid level 1.1. Normal saline currently infusing at 75 mL/h. She was noted to be hypotensive despite 2.5 L normal saline bolus. She was started on low-dose norepinephrine which is currently infusing at 0.03 mcg/kg/min, and for this reason was admitted to the intensive care unit. Patient is currently lying in bed, on room air, in no acute distress. She has a significant resting tremor. She is alert and oriented to self only. She is currently afebrile. Empirically covered on Zosyn. Blood and urine cultures are pending. Review of Systems ROS unobtainable: due to mental status Past Medical History Past Medical History: Hyperlipidemia, Hypertension, Seizure Disorder Additional Past Medical History / Comment(s): FAILED STRESS TEST, PAST HX OF SEIZURE, NONE IN YEARS, TREMOR DISORDER, developmental disorder. History of Any Multi-Drug Resistant Organisms: None Reported Past Surgical History: Adenoidectomy, Tonsillectomy Additional Past Surgical History / Comment(s): CATARACT SX, AMPUTATED RING FINGER Past Anesthesia/Blood Transfusion Reactions: No Reported Reaction Past Psychological History: Anxiety, Depression Smoking Status: Never smoker Past Alcohol Use History: None Reported Past Drug Use History: None Reported - Past Family History Mother Family Medical History: AFIB, Myocardial Infarction ([place]) Father Family Medical History: CVA/TIA Medications and Allergies Home Medications Medication Instructions Recorded Confirmed Type RX: Aspirin [Aspir-Low] 81 mg PO DAILY@0800 04/19/15 11/06/16 History RX: Cholecalciferol [Vitamin D3 1,000 unit PO DAILY@0800 04/19/15 11/06/16 History (25 Mcg = 1000 Iu)] RX: Darifenacin Hydrobromide 7.5 mg PO DAILY@0804/19/15 11/06/16 History [Enablex] RX: Gabapentin 300 mg PO TID@0800,1600,199904/19/15 11/06/16 History RX: Propranolol HCl [Inderal LA] 120 mg PO DAILY@0800 04/19/15 11/06/16 History RX: Simvastatin 40 mg PO DAILY@0800 04/19/15 11/06/16 History RX: Vitamin B Complex 1 cap PO DAILY@0800 04/19/15 11/06/16 History ARIPiprazole [Abilify] 5 mg PO HS@209911/06/16 11/06/16 History Betamethasone/Propylene Glyc 1 applic TOPICAL BID@0800,199911/06/16 11/06/16 History [Betamethasone Dp Aug 0.05% Lot] Clotrimazole [Clotrimazole AF] 1 applic TOPICAL BID@799,199911/06/16 11/06/16 History DULoxetine HCL [Cymbalta] 60 mg PO BID@0800,199911/06/16 11/06/16 History LORazepam [Ativan] 0.5 mg PO DAILY PRN 11/06/16 11/06/16 History Nystatin 100,000Unit/gm Cream 1 applic TOPICAL BID@08,199911/06/16 11/06/16 History [Mycostatin Cream] RX: busPIRone HCL 15 mg PO QID@08,12,16,20 11/06/16 11/06/16 History Allergies Allergy/AdvReac Type Severity Reaction Status Date / Time No Known Allergies Allergy Verified 11/06/16 15:03 Physical Exam Vitals: Vital Signs Temp Pulse Pulse Resp BP BP BP 05/26/23 05:00 98.3 F 33 H 116/46 05/26/23 04:50 27 H 05/26/23 04:49 27 H 05/26/23 04:15 77 20 73/52 05/26/23 04:00 72 66/44 05/26/23 03:15 81/50 05/26/23 03:00 77/57 05/26/23 02:00 71 15 74/50 05/26/23 01:45 83/50 05/26/23 01:30 80/56 05/26/23 01:15 75/51 05/26/23 01:00 83/50 05/26/23 00:45 74/47 05/26/23 00:33 70/35 05/25/23 23:00 98.9 F 85 18 105/58 05/25/23 22:00 99.7 F H 87 18 103/56 05/25/23 21:15 99.9 F H 98 20 101/57 05/25/23 18:51 102.3 F H 97 18 101/57 Pulse Ox 05/26/23 05:00 84 L 05/26/23 04:50 05/26/23 04:49 05/26/23 04:15 97 05/26/23 04:00 05/26/23 03:15 05/26/23 03:00 05/26/23 02:00 93 L 05/26/23 01:45 05/26/23 01:30 05/26/23 01:15 05/26/23 01:00 05/26/23 00:45 05/26/23 00:33 05/25/23 23:00 97 05/25/23 22:00 98 05/25/23 21:15 95 05/25/23 18:51 94 L Intake and Output 05/25/23 05/25/23 05/26/23 14:59 22:59 06:59 Intake Total 125 Output Total 200 Balance -75 Intake: IV 125 Sodium Chloride 0.9% 1, 125 000 ml @ 125 mls/hr IV . Q8H [facility] Rx#:[id number] Output: Urine 200 Other: Voiding Method Diaper Indwelling Catheter Weight 77.111 kg GENERAL EXAM: Alert, developmentally delayed 73-year-old white female, resting tremors, fairly comfortable in no apparent distress. HEAD: Normocephalic and atraumatic EYES: Normal reaction of pupils, equal size. NOSE: Clear with pink turbinates. Oropharynx: White plaques on tongue. No significant posterior pharynx erythema or exudates. NECK: No masses, no JVD. CHEST: No chest wall deformity. LUNGS: Equal air entry with mild end expiratory wheezes. On room air. No conversational dyspnea or accessory muscle use.. CVS: S1 and S2 normal with no audible murmur, regular rhythm. No extra heart sounds ABDOMEN: No hepatosplenomegaly, active bowel sounds, no guarding or rigidity. SPINE: No scoliosis or deformity SKIN: No rashes CENTRAL NERVOUS SYSTEM: Neurological exam was brief but nonfocal, tone is normal in all 4 extremities. Resting tremors noted. No seizure-like activity. EXTREMITIES: There is no peripheral edema, clubbing, or cyanosis. Peripheral pulses are intact. Results - Laboratory Findings CBC and BMP: 05/26/23 05:01 05/26/23 05:01 Abnormal lab findings: Abnormal Labs 05/25/23 05/25/23 05/25/23 19:24 19:24 20:13 Neutrophils # 8.5 H Lymphocytes # 0.7 L Sodium 134 L BUN 19 H Glucose 119 H AST 280 H ALT 40 H Alkaline Phosphatase 361 H Urine Protein 1+ H Urine Blood Small H Urine Bilirubin 1+ H Ur Leukocyte Esterase Trace H Urine RBC 42 H Urine WBC 7 H Urine Mucus Rare H - Diagnostic Findings Chest x-ray: image reviewed Assessment and Plan Assessment: Acute febrile illness, currently under investigation, possible urinary tract infection Suspected sepsis and septic shock, refractory to fluid resuscitation requiring vasopressors Mild transaminitis Recent outpatient treatment for urinary tract infection, with Bactrim Oral candidiasis History of developmental delay Resting tremors Thyroid nodule, an incidental finding History of hyperlipidemia Plan: Patient's medications, labs, chest x-ray reviewed Patient was fluid resuscitated with 2.5 L of crystalloid fluid in the emergency room. She remains hypotensive, and required the addition of vasopressors. She currently is on low-dose norepinephrine which is infusing at only 2 mics per minute. Patient is empirically covered on Zosyn. Blood and urine cultures are pending. Infectious disease asked to evaluate the patient Negative for RSV, COVID, influenza. Add nystatin swish and swallow for thrush. Protonix for GI prophylaxis Heparin for DVT prophylaxis Patient will be monitored in the intensive care unit. I have personally seen and examined the patient, performed the documentation and the assessment and plan as written. Number of minutes spent on the visit:20 Time with Patient: Greater than 30
[2023-05-26] MEDS: HEPARIN SODIUM,PORCINE 5,000 UNIT/ML 1 ML VIAL SQ SCH (09:07)
[2023-05-26] MEDS: PANTOPRAZOLE 40 MG TABLET PO SCH (09:07)
[2023-05-26] MEDS: NYSTATIN 100,000 UNIT/ML SUSP 500,000 UNIT/5 ML CUP PO SCH (09:07)
[2023-05-26] MEDS: PIPERACILLIN-TAZOBACTAM 3.375 GM in SODIUM CHLORIDE 0.9% 100 ML IVPB SCH (09:07)
--- NOTE | 2023-05-26 10:20 | US ---
EXAMINATION TYPE: US renals and bladder DATE OF EXAM: 05/26/2023 COMPARISON: 05/25/2023 - Us Gallbladder CLINICAL INDICATION: Female, 73 years old with history of Left flank pain; Limited history - history given by guardian (sister): Recent UTI with fever and hematuria EXAM MEASUREMENTS: Right Kidney: 11.9 x 6.5 x 6.2 cm Left Kidney: 10.3 x 5.9 x 5.7 cm Post Void Residual Volume: NA mL Right Kidney: Simple cyst = 3.2 x 2.9 x 3.3 cm Left Kidney: Hypoechoic nodule = 2.4 x 1.7 x 1.8 cm Bladder: Not fully distended, weztel noted within. Bilateral Jets seen: NA Normal Post Void Residual: NA No nephrolithiasis is seen. No masses are identified. IMPRESSION: 1. No hydronephrosis or nephrolithiasis. 2. Simple 3.2 x 3.3 cm right renal cyst Bosniak classification I. 3. Hypoechoic nodule left kidney does not meet the criteria for simple cysts. Suspect this is a most likely technical and could be confirmed with CT scan.
--- NOTE | 2023-05-26 10:22 | P.PN ---
Subjective Progress Note Date: 05/26/23 Hospital Course: 73-year-old senior care resident female with history of hypertension, dyslipidemia, depression/anxiety, psychotic disorder presenting with acute encephalopathy, weakness, recent fall as well as fever. Patient unable to provide a meaningful history. On arrival, temperature was 102.3, pulse 97, respiratory rate 18, blood pressure 101/57, saturating at 94% on room air. Patient has progressively been more hypotensive in the ER. Initial laboratory data showed WBC of 9.8, BUN 19, creatinine 1, total bili 1.3, AST 280, ALT 40, ALP 361, urinalysis shows negative nitrites, trace leukocyte esterase, respiratory viral panel was negative. Lipase 234. Chest x-ray showed no focal opacities. Head CT and cervical C-spine did not show any acute fractures. Left lobe of thyroid gland was enlarged at 3.3 cm, recommended outpatient follow-up. EKG showed sinus rhythm. Gallbladder ultrasound showed CBD within normal limits, gallbladder within normal limits, right kidney cyst. She received total of 2.5 l of normal saline in the ED, with persistently low blood pressures. Patient was started on vasopressors as well as IV antibiotics. Currently in medical ICU for closer monitoring. ID and pulmonology consulted. Subjective: Patient seen and examined at bedside. No acute events overnight. Pertinent positives and negatives as discussed above, a complete review of systems was performed and all other systems are negative. Vitals Signs Reviewed. General: Nontoxic, no distress, appears at stated age Derm: Warm, dry Head: Atraumatic, normocephalic, symmetric Eyes: EOMI, no lid lag, anicteric sclera Mouth: No lip lesion, mucus membranes moist Cardiovascular: S1S2 reg, no murmur Lungs: CTA bilateral, no rhonchi, no rales, no accessory muscle use Abdominal: Soft, nontender to palpation, no guarding, no appreciable organomegaly Ext: No gross muscle atrophy, no edema, no contractures Neuro: CN II-XI grossly intact, no focal neuro deficits, tremor at rest Psych: Alert, oriented x 2, appropriate affect Data Reviewed Today: Pertinent Labs: WBC 8.2, hemoglobin 11.8, platelet 171, sodium 136, bicarb 21, BUN 18, creatinine 0.9, total bili 1.4, AST 199, ALT 146, ALP 290. Imaging: No new imaging Assessment and Plan: Active: Septic shock, unclear source Recent outpatient treatment of urinary tract infection with Bactrim Acute metabolic encephalopathy Mild transaminitis Oral candidiasis History of developmental delay Patient did have recent UTI, urinalysis showed trace leukocyte esterase, urine cultures pending, blood cultures pending Has transaminitis, however right upper quadrant ultrasound does not show any infectious pathology Continue IV Zosyn 3.375 g every 8 hours Tylenol 650 every 6 hours as needed for fever Pulmonology note reviewed, continue current management, also added nystatin swish and swallow for oral thrush Wean pressors ID consulted Thyroid nodule Outpatient follow-up Anxiety/depression/psychotic disorder Dyslipidemia Overactive bladder Resume home medications once reconciled by pharmacy DVT ppx: Subcu heparin Code status: Full code Anticipated discharge place: Pending clinical course Anticipated discharge time: Pending clinical course Objective - Vital Signs Vital signs: Vital Signs Temp 98.3 F 05/26/23 05:00 Pulse 76 05/26/23 05:50 Resp 13 05/26/23 06:10 BP 102/79 05/26/23 06:10 Pulse Ox 83 L 05/26/23 05:30 FiO2 Intake & Output 05/25/23 05/25/23 05/26/23 06:59 18:59 06:59 Intake Total 350 Output Total 250 Balance 100 Weight 77.111 kg 77.111 kg Intake: IV 350 Potassium Chloride 10 meq 100 In Water For Injection 1 100ml.bag @ 100 mls/hr IVPB Q1H [facility] Rx#: [id number] Sodium Chloride 0.9% 1, 250 000 ml @ 125 mls/hr IV . Q8H [facility] Rx#:[id number] Output: Urine 250 Other: Voiding Method Indwelling Catheter - Labs CBC & Chem 7: 05/26/23 05:01 05/26/23 05:01 Labs: Abnormal Lab Results - Last 24 Hours (Table) 05/25/23 05/25/23 05/25/23 Range/Units 19:24 19:24 20:13 Neutrophils # 8.5 H (1.3-7.7) k/uL Lymphocytes # 0.7 L (1.0-4.8) k/uL Sodium 134 L (137-145) mmol/L Chloride (98-107) mmol/L Carbon Dioxide (22-30) mmol/L BUN 19 H (7-17) mg/dL Glucose 119 H (74-99) mg/dL Calcium (8.4-10.2) mg/dL Total Bilirubin (0.2-1.3) mg/dL AST 280 H (14-36) U/L ALT 40 H (4-34) U/L Alkaline Phosphatase 361 H (38-126) U/L Total Protein (6.3-8.2) g/dL Albumin (3.5-5.0) g/dL Urine Protein 1+ H (Negative) Urine Blood Small H (Negative) Urine Bilirubin 1+ H (Negative) Ur Leukocyte Esterase Trace H (Negative) Urine RBC 42 H (0-5) /hpf Urine WBC 7 H (0-5) /hpf Urine Mucus Rare H (None) /hpf 05/26/23 Range/Units 05:01 Neutrophils # (1.3-7.7) k/uL Lymphocytes # (1.0-4.8) k/uL Sodium 136 L (137-145) mmol/L Chloride 111 H (98-107) mmol/L Carbon Dioxide 21 L (22-30) mmol/L BUN 18 H (7-17) mg/dL Glucose (74-99) mg/dL Calcium 7.2 L (8.4-10.2) mg/dL Total Bilirubin 1.4 H (0.2-1.3) mg/dL AST 199 H (14-36) U/L ALT 146 H (4-34) U/L Alkaline Phosphatase 290 H (38-126) U/L Total Protein 5.9 L (6.3-8.2) g/dL Albumin 3.2 L (3.5-5.0) g/dL Urine Protein (Negative) Urine Blood (Negative) Urine Bilirubin (Negative) Ur Leukocyte Esterase (Negative) Urine RBC (0-5) /hpf Urine WBC (0-5) /hpf Urine Mucus (None) /hpf
[2023-05-26] MEDS: IOPAMIDOL CONTRAST (ORAL USE) VIAL PO PRN (12:10)
--- NOTE | 2023-05-26 14:31 | CT ---
EXAMINATION: CT ABDOMEN AND PELVIS WITH IV CONTRAST DATE OF EXAMINATION: 05/26/2023. COMPARISON: None available. INDICATION: Sepsis with elevated LFTs. PROCEDURE: Axial CT of the abdomen and pelvis was performed with contrast and sagittal and coronal reformatted images were performed. CT dose lowering techniques were used, to include: automated expos ure control, adjustment for patient size, and/or use of iterative reconstruction. 100 mL of Isovue-30 0 was given intravenously. FINDINGS: LOWER CHEST : Trace right pleural effusion. Bands of opacity at the lung bases bilaterally otherwise likely atelectasis or scarring. ABDOMEN: Liver and Biliary system: There is a linear area of hypoattenuation within the dome of the liver whi ch is indeterminate and no specific imaging features. The liver otherwise appears unremarkable.. Adrenal glands: Normal. Kidneys and ureters: A centimeters simple cyst in the interpolar region of the right kidney. Subcenti meter hypodensities are otherwise seen that are too small fully characterize. Spleen: Normal. Pancreas: Normal. Gallbladder: Normal. Lymph nodes, Peritoneum and mesentery: There is no mesenteric or retroperitoneal lymphadenopathy. Gastrointestinal tract: There are no dilated loops of bowel or free intraperitoneal air. The appe ndix is normal. There is mild descending colonic and sigmoid colonic diverticulosis without evidence of diverticulitis. Aorta/IVC: There is mild vascular calcification throughout the abdominal aorta without evidence of aneurysmal dilation or dissection. IVC normal. Abdominal wall: Normal. PELVIS: Fluid: There is no free fluid in the pelvis. Lymph Nodes: There is no pelvic or inguinal lymphadenopathy.. Urinary bladder: Angulo catheter is seen within the collapsed bladder.. BONES: There are no osseous destructive lesions.. ADDITIONAL SIGNIFICANT FINDINGS: 0.7 cm left fundal fibroid.. IMPRESSION: 1. No acute process seen within the abdomen or pelvis. 2. Linear area of hypoattenuation in the dome of the liver is indeterminant and has no specific imagi ng features. Attention on follow-up recommended. 3. Trace right pleural effusion. 4. Diverticulosis without evidence of diverticulitis. 5. Uterine fibroid.
[2023-05-26] MEDS: ACETAMINOPHEN TAB 325 MG TAB PO PRN (19:43)
[2023-05-27 06:18] LABS: Basophils % (A) 0 %; Eosinophils # (A) 0.2 k/uL (0-0.7); Eosinophils % (A) 2 %; HCT 34.8 % (34.0-46.0); HGB 11.2 gm/dL (11.4-16.0); Hypochromasia Slight; Lymphocytes # (A) 0.7 k/uL (1.0-4.8); Lymphocytes % (A) 8 %; MCH 29.2 pg (25.0-35.0); MCHC 32.1 g/dL (31.0-37.0); MCV 91.1 fL (80.0-100.0); Mean Platelet Volume 7.9; Monocytes # (A) 0.3 k/uL (0-1.0); Monocytes % (A) 3 %; Neutrophils # (A) 6.6 k/uL (1.3-7.7); Neutrophils % (A) 84 %; Platelet Count 187 k/uL (150-450); RBC 3.82 m/uL (3.80-5.40); RDW 14.8 % (11.5-15.5); WBC 7.8 k/uL (3.8-10.6)
[2023-05-27 06:32] LABS: ALT 257 U/L (4-34); AST 158 U/L (14-36); African American GFR (CKD) >90 (>60 ml/min/1.73 sqM); Alkaline Phosphatase 319 U/L (38-126); Anion Gap 8 mmol/L; Blood Urea Nitrogen 11 mg/dL (7-17); Calcium 7.1 mg/dL (8.4-10.2); Carbon Dioxide 17 mmol/L (22-30); Chloride 113 mmol/L (98-107); Glucose 81 mg/dL (74-99); Magnesium 2.6 mg/dL (1.6-2.3); Non-African American GFR(CKD) >90 (>60 ml/min/1.73 sqM); Potassium 4.3 mmol/L (3.5-5.1); Sodium 138 mmol/L (137-145); Total Bilirubin 1.9 mg/dL (0.2-1.3); Total Protein 5.7 g/dL (6.3-8.2)
--- NOTE | 2023-05-27 08:04 | P.PN ---
Subjective Progress Note Date: 05/27/23 Patient is a 73-year-old female [facility] resident with hypertension, dyslipidemia, psychotic disorder, and multiple other comorbid conditions who presented with acute confusion, weakness, falls, and fever. On arrival she was febrile with a temp of 102.3. Initial laboratory analysis was remarkable for sodium of 134 AST 280 ALT 40 and alkaline phosphatase of 360. Initial urinalysis showed 7 white blood cells. Patient tested negative for influenza A/B/RSV/COVID-19. Initial chest x-ray showed possible bronchitis or asthma with no focal infiltrates. CT head and cervical spine demonstrated no acute intracranial abnormality with rounded enlargement of the left lobe of the thyroid gland measuring 3.3 cm. She was admitted for sepsis with suspected intra abdominal versus UTI source. She was hypotensive in the ER and received 2.5 L of crystalloid, she continued to have low blood pressures and required a norepinephrine drip. She was started on Zosyn. Patient was admitted to the ICU. Critical care was consulted. Gallbladder ultrasound was obtained which shows a heterogeneous liver with increased cortical echogenicity in the right kidney consistent with chronic medical renal disease. Her norepinephrine was able to be weaned by the morning of 05/26. She underwent CT abdomen and pelvis which showed no acute process. Patient seen and examined at bedside. She denies any pain, she does admit to some shortness of breath. No nausea no vomiting. Vital signs reviewed General: Nontoxic, ill appearing, appears at stated age Cardiovascular: S1S2 reg, no murmur Lungs: CTA bilateral, no rhonchi, no rales, no accessory muscle use Abdominal: Soft, nontender to palpation, no guarding Ext: No gross muscle atrophy, no edema b/l lower extremities, no contractures Neuro: CN II-XI grossly intact, no focal neuro deficits Psych: Alert, oriented, appropriate affect Assessment/Plan: Septic shock with unclear source Probable urinary tract infection, recent complete and of Bactrim for outpatient UTI Acute metabolic encephalopathy Transaminitis -Zosyn 3.375 g IV piggyback every 8 hours day #2 - Liver US without acute process or ductal dilitation - Normal saline at 125 MLS per hour -Resume home Abilify 2 mg in the morning and 5 mg at night, Cymbalta 60 mg twice daily -Continue to hold gabapentin, BuSpar, Ativan -Will resume carbidopa levodopa 1 tablet oral 3 times daily -With concerns for an fully treated urinary tract infection will continue to hold Myrbetriq -Hold propranolol due to hypotension Oral candidiasis - Nystatin swish and swallow D # 2 Chronic: History of developmental delay Anxiety/depression/psychotic disorder Dyslipidemia Overactive bladder Thyroid gland enlargement -Outpatient thyroid ultrasound once acute illness has resolved Imaging: CT abdomen and pelvis: No acute intracranial process, linear hypoattenuation of the dome of the liver, trace pleural effusions, uterine fibroid. Renal ultrasound: Simple 3.2 x 3.3 cm right renal cyst, hypoechoic nodule left kidney Data Review: Labs reviewed from today include CBC, CMP which are remarkable for hemoglobin 11.2, chloride 113, carbon dioxide 17, bilirubin 1.9, AST 158, ALT 257 DVT prophylaxis: Heparin Anticipated discharge date: Pending Clinical Course Anticipated discharge place: Pending Clinical Course This dictation was prepared using [employer] voice recognition software. Though every attempt is made to correct errors during dictation some may still exist. Objective - Vital Signs Vital signs: Vital Signs Temp 98.4 F 05/27/23 03:45 Pulse 87 05/27/23 07:00 Resp 21 05/27/23 07:00 BP 98/61 05/27/23 07:00 Pulse Ox 93 L 05/27/23 07:00 FiO2 Intake & Output 05/26/23 05/27/23 05/27/23 18:59 06:59 18:59 Intake Total 2625.458 1639.419 125 Output Total 590 875 50 Balance 2035.458 764.419 75 Weight 76 kg Intake: IV 1575 1600 125 Piperacillin-Tazobactam 3 200 100 .375 gm In Sodium Chloride 0.9% 100 ml @ 25 mls/hr IVPB Q8HR [facility] Rx# :[id number] Sodium Chloride 0.9% 1, 1375 1500 125 000 ml @ 125 mls/hr IV . Q8H [facility] Rx#:[id number] Intake, IV Titration 120.458 39.419 Amount Norepinephrine 4 mg In 120.458 39.419 Sodium Chloride 0.9% 250 ml @ 0.03 MCG/KG/MIN 8. 814 mls/hr IV .Q24H [facility] Rx#:[id number] Oral 930 Output: Urine 590 875 50 Other: Voiding Method Indwelling Catheter Indwelling Catheter # Bowel Movements 1 1 - Labs CBC & Chem 7: 05/27/23 05:56 05/27/23 06:05 Labs: Abnormal Lab Results - Last 24 Hours (Table) 05/27/23 05/27/23 Range/Units 05:56 06:05 Hgb 11.2 L (11.4-16.0) gm/dL Lymphocytes # 0.7 L (1.0-4.8) k/uL Chloride 113 H (98-107) mmol/L Carbon Dioxide 17 L (22-30) mmol/L Calcium 7.1 L (8.4-10.2) mg/dL Magnesium 2.6 H (1.6-2.3) mg/dL Total Bilirubin 1.9 H (0.2-1.3) mg/dL AST 158 H (14-36) U/L ALT 257 H (4-34) U/L Alkaline Phosphatase 319 H (38-126) U/L Total Protein 5.7 L (6.3-8.2) g/dL Albumin 3.0 L (3.5-5.0) g/dL Microbiology - Last 24 Hours (Table) 05/25/23 23:15 Blood Culture - Preliminary Blood 05/25/23 23:00 Blood Culture - Preliminary Blood
--- NOTE | 2023-05-27 08:26 | P.CONS ---
History of Present Illness - Reason for Consult Consult date: 05/26/23 Fever Requesting physician: Karen Fay - Chief Complaint Fever and weakness x few days - History of Present Illness Patient is a 73-year-old female with a past medical history significant for hypertension hyperlipidemia seizure disorder presenting to the ER for evaluation of fever and weakness in this patient who is a correction resident apparently the patient recently completed course of Bactrim DS for UTI and the patient was noticed to be acting abnormal after the patient did have a fall on Wednesday and did have a difficulty in doing his activities of daily living on presentation to the hospital patient did have a fever of 102.3 F patient was not tachycardic mildly hypotensive requiring admission to the ICU did have hypoxemia requiring supplemental oxygen, patient did have a white count of 9.8 creatinine was normal liver isms mildly elevated amylase lipase was normal urine mildly positive influenza RSV COVID testing was negative patient did have a chest x-ray borderline heart size correlate for bronchitis or asthma possible underlying COPD no focal infiltrate patient was started on Zosyn ultrasound of the gallbladder was done suboptimal study no biliary dilatation is identified infectious disease was consulted for further management of antibiotic therapy patient herself not a very good historian however when asked specifically denies any headache or URI symptoms no nausea no vomiting no chest pain shortness of breath or cough and no diarrhea has been reported Review of Systems Positive point and negatives has been mentioned in the HPI, complete review of systems was performed and all other systems are negative Past Medical History Past Medical History: Hyperlipidemia, Hypertension, Seizure Disorder Additional Past Medical History / Comment(s): FAILED STRESS TEST, PAST HX OF SEIZURE, NONE IN YEARS, TREMOR DISORDER, developmental disorder. History of Any Multi-Drug Resistant Organisms: None Reported Past Surgical History: Adenoidectomy, Tonsillectomy Additional Past Surgical History / Comment(s): CATARACT SX, AMPUTATED RING FINGER Past Anesthesia/Blood Transfusion Reactions: No Reported Reaction Past Psychological History: Anxiety, Depression Smoking Status: Never smoker Past Alcohol Use History: None Reported Past Drug Use History: None Reported - Past Family History Mother Family Medical History: AFIB, Myocardial Infarction ([place]) Father Family Medical History: CVA/TIA Medications and Allergies Home Medications Medication Instructions Recorded Confirmed Type Aspirin [Aspir-Low] 81 mg PO DAILY 04/19/15 05/26/23 History Gabapentin 300 mg PO TID 04/19/15 05/26/23 History ARIPiprazole [Abilify] 5 mg PO HS@2100 11/06/16 05/26/23 History DULoxetine HCL [Cymbalta] 60 mg PO BID 11/06/16 05/26/23 History LORazepam [Ativan] 0.5 mg PO DAILY 11/06/16 05/26/23 History ARIPiprazole [Abilify] 2 mg PO DAILY 05/26/23 05/26/23 History Alendronate Sodium [Fosamax] 70 mg PO SA 05/26/23 05/26/23 History Ammonium Lactate Lotion 1 applic TOPICAL DAILY PRN 05/26/23 05/26/23 History [Lac-Hydrin 12% Lotion] Athletes Foot 1% Powder [place] 1 spray TOPICAL BID 05/26/23 05/26/23 History Carbidopa-Levodopa 25-100 mg 1 tab PO TID 05/26/23 05/26/23 History [Sinemet 25-100 mg] Cholecalciferol (Vitamin D3) 50 mcg PO DAILY 05/26/23 05/26/23 History [Vitamin D3 (50 Mcg = 2000 Iu)] Cyanocobalamin (Vitamin B-12) 1,000 mcg PO DAILY 05/26/23 05/26/23 History [Vitamin B-12] Ibuprofen [Motrin] 400 mg PO Q6HR PRN 05/26/23 05/26/23 History Ketoconazole 2% Cream [Nizoral 2%] 1 applic TOPICAL BID PRN 05/26/23 05/26/23 History Magnesium Hydroxide [Milk of 2,400 mg PO HS PRN 05/26/23 05/26/23 History Magnesia] Mirabegron [Myrbetriq] 25 mg PO DAILY 05/26/23 05/26/23 History bisacodyL [Dulcolax] 10 mg RECTAL DAILY PRN 05/26/23 05/26/23 History busPIRone HCL [Buspar] 30 mg PO BID 05/26/23 05/26/23 History Amoxic-Pot Clav 875-125Mg 1 tab PO BID #6 tab 06/01/23 Rx [Augmentin 875-125] Fluconazole [Diflucan] 100 mg PO DAILY #5 tablet 06/01/23 Rx Losartan Potassium [Cozaar] 100 mg PO HS #30 tab 06/01/23 Rx Sodium Bicarbonate Tab 650 mg PO BID #20 tab 06/01/23 Rx Allergies Allergy/AdvReac Type Severity Reaction Status Date / Time No Known Allergies Allergy Verified 05/26/23 13:07 Physical Exam Vitals: Vital Signs Temp Pulse Pulse Resp BP BP BP 05/26/23 06:10 13 102/79 05/26/23 06:00 21 101/64 05/26/23 05:50 76 24 05/26/23 05:40 22 96/65 05/26/23 05:30 19 94/77 05/26/23 05:20 23 05/26/23 05:10 36 H 103/48 05/26/23 05:00 98.3 F 33 H 116/46 05/26/23 04:50 27 H 05/26/23 04:49 27 H 05/26/23 04:15 77 20 73/52 05/26/23 04:00 72 66/44 05/26/23 03:15 81/50 05/26/23 03:00 77/57 05/26/23 02:00 71 15 74/50 05/26/23 01:45 83/50 05/26/23 01:30 80/56 05/26/23 01:15 75/51 05/26/23 01:00 83/50 05/26/23 00:45 74/47 05/26/23 00:33 70/35 05/25/23 23:00 98.9 F 85 18 105/58 05/25/23 22:00 99.7 F H 87 18 103/56 05/25/23 21:15 99.9 F H 98 20 101/57 05/25/23 18:51 102.3 F H 97 18 101/57 Pulse Ox 05/26/23 06:10 05/26/23 06:00 05/26/23 05:50 05/26/23 05:40 05/26/23 05:30 83 L 05/26/23 05:20 71 L 05/26/23 05:10 93 L 05/26/23 05:00 84 L 05/26/23 04:50 05/26/23 04:49 05/26/23 04:15 97 05/26/23 04:00 05/26/23 03:15 05/26/23 03:00 05/26/23 02:00 93 L 05/26/23 01:45 05/26/23 01:30 05/26/23 01:15 05/26/23 01:00 05/26/23 00:45 05/26/23 00:33 05/25/23 23:00 97 05/25/23 22:00 98 05/25/23 21:15 95 05/25/23 18:51 94 L Intake and Output 05/25/23 05/26/23 05/26/23 22:59 06:59 14:59 Intake Total 350 Output Total 250 Balance 100 Intake: IV 350 Potassium Chloride 10 meq 100 In Water For Injection 1 100ml.bag @ 100 mls/hr IVPB Q1H [facility] Rx#: [id number] Sodium Chloride 0.9% 1, 250 000 ml @ 125 mls/hr IV . Q8H [facility] Rx#:[id number] Output: Urine 250 Other: Voiding Method Diaper Indwelling Catheter Weight 77.111 kg 77.111 kg GENERAL DESCRIPTION: Elderly female lying in bed, no distress. No tachypnea or accessory muscle of respiration use. HEENT: Shows Pallor , no scleral icterus. Oral mucous membrane is dry. No pharyngeal erythema or thrush NECK: Trachea central, no thyromegaly. LUNGS: Unlabored breathing. Clear to auscultation anteriorly. No wheeze or crack le. HEART: S1, S2, regular rate and rhythm. No loud murmur ABDOMEN: Soft, no tenderness , guarding or rigidity, no organomegaly EXTREMITIES: No edema of feet. SKIN: No rash, no masses palpable. NEUROLOGICAL: The patient is awake, alert, mood and affect normal, no neck rigidity Results CBC & Chem 7: 05/31/23 05:19 05/31/23 05:19 Labs: Abnormal Lab Results - Last 24 Hours (Table) 05/25/23 05/25/23 05/25/23 Range/Units 19:24 19:24 20:13 Neutrophils # 8.5 H (1.3-7.7) k/uL Lymphocytes # 0.7 L (1.0-4.8) k/uL Sodium 134 L (137-145) mmol/L Chloride (98-107) mmol/L Carbon Dioxide (22-30) mmol/L BUN 19 H (7-17) mg/dL Glucose 119 H (74-99) mg/dL Calcium (8.4-10.2) mg/dL Total Bilirubin (0.2-1.3) mg/dL AST 280 H (14-36) U/L ALT 40 H (4-34) U/L Alkaline Phosphatase 361 H (38-126) U/L Total Protein (6.3-8.2) g/dL Albumin (3.5-5.0) g/dL Urine Protein 1+ H (Negative) Urine Blood Small H (Negative) Urine Bilirubin 1+ H (Negative) Ur Leukocyte Esterase Trace H (Negative) Urine RBC 42 H (0-5) /hpf Urine WBC 7 H (0-5) /hpf Urine Mucus Rare H (None) /hpf 05/26/23 Range/Units 05:01 Neutrophils # (1.3-7.7) k/uL Lymphocytes # (1.0-4.8) k/uL Sodium 136 L (137-145) mmol/L Chloride 111 H (98-107) mmol/L Carbon Dioxide 21 L (22-30) mmol/L BUN 18 H (7-17) mg/dL Glucose (74-99) mg/dL Calcium 7.2 L (8.4-10.2) mg/dL Total Bilirubin 1.4 H (0.2-1.3) mg/dL AST 199 H (14-36) U/L ALT 146 H (4-34) U/L Alkaline Phosphatase 290 H (38-126) U/L Total Protein 5.9 L (6.3-8.2) g/dL Albumin 3.2 L (3.5-5.0) g/dL Urine Protein (Negative) Urine Blood (Negative) Urine Bilirubin (Negative) Ur Leukocyte Esterase (Negative) Urine RBC (0-5) /hpf Urine WBC (0-5) /hpf Urine Mucus (None) /hpf Assessment and Plan (1) Sepsis Status: Acute Code(s): A41.9 - SEPSIS, UNSPECIFIED ORGANISM SNOMED Code(s): 40817537 (2) Transaminitis Status: Acute Code(s): R74.01 - ELEVATION OF LEVELS OF LIVER TRANSAMINASE LEVELS SNOMED Code(s): 017497297 Plan: 1patient presented hospital with fever mental status changes in this patient recently completed a course of Bactrim DS for the UTI urine is not significantly positive patient did have elevated liver enzymes and also noticed to have some abdominal distention concerning for possible abdominal source 2-we will obtain CT of abdominal pelvis with contrast to better define underlying abdominal pathology 3-continue with Zosyn 3.375 g. Every 8 hour while waiting for the culture to finalize We will follow on clinical condition and cultures to further adjust medication if needed Thank you for this consultation we will follow the patient along with you Dictation was produced using [employer] dictation software. please excuse any grammatical, word or spelling errors. Time with Patient: Greater than 30
[2023-05-27] MEDS: ASPIRIN 81 MG PO SCH (09:03)
[2023-05-27] MEDS: DULoxetine HCL 60 MG CAPSULE.DR PO SCH (09:03)
[2023-05-27] MEDS: CARBIDOPA-LEVODOPA 25-100 MG 1 EACH TAB PO SCH (09:03)
--- NOTE | 2023-05-27 09:21 | XR ---
EXAMINATION TYPE: XR chest 1V portable DATE OF EXAM: 05/27/2023 COMPARISON: 05/25/2023 HISTORY: Hypoxia TECHNIQUE: Single frontal view of the chest is obtained. FINDINGS: A bilateral consolidation and small effusion. Mild interstitial prominence. Heart is mildl y enlarged. Atherosclerotic change aorta. Diffuse osteopenia. Degenerative changes spine. IMPRESSION: 1. COPD correlate for mild venous congestion is also bilateral pleural effusion.
[2023-05-27] MEDS: ARIPiprazole 2 MG TAB PO SCH (10:40)
--- NOTE | 2023-05-27 11:02 | P.PN ---
Subjective Progress Note Date: 05/27/23 Patient is a 73-year-old white female with past medical history significant for developmental delay, resting tremors, seizure disorder, hypertension, hyperlipidemia. [facility] a [facility]. She is an unreliable historian. She has a legal guardian, which is her sister, who provides much of the inform ation. Patient resides at a [facility]. Over the last week or so she has been more confused and weak. She has not been eating much. She had a fall on Wednesday. She was treated outpatient for UTI, and just completed a course of Bactrim. Patient was sent in via EMS for ER evaluation last night. On arrival, she was found to be febrile with a Tmax of 102.3 F. Urinalysis showed trace leukocytes, proteinuria, and trace hematuria. She does endorse some left flank tenderness. Chest x-ray showed borderline cardiomegaly, with mild interstitial densities, but without focal infiltrates. Negative for influenza, RSV, COVID on arrival. CBC on arrival: WBC count 9.8, hemoglobin 11.9, hematocrit 36.3, platelets 204. BMP on arrival: Sodium 134, potassium 4.6, chloride 102, serum bicarb 23, BUN 19, creatinine 1, glucose 119. LFTs mildly elevated including an AST of 280, ALT of 40, ALP of 361. Total bili 1.3. Pancreatic enzymes not elevated. Abdominal ultrasound does not show any obvious liver mass or biliary dilation or gallstones. No right-sided hydronephrosis. Lactic acid level 1.1. Normal saline currently infusing at 75 mL/h. She was noted to be hypotensive despite 2.5 L normal saline bolus. She was started on low-dose norepinephrine which is currently infusing at 0.03 mcg/kg/min, and for this reason was admitted to the intensive care unit. Patient is currently lying in bed, on room air, in no acute distress. She has a significant resting tremor. She is alert and oriented to self only. She is currently afebrile. Empirically covered on Zosyn. Blood and urine cultures are pending. The patient is seen today May 27, 2023 in follow-up in the intensive care unit. She is currently sitting up in bed. Awake and alert in no acute distress. She is maintaining O2 saturations in the 90s on 2 L/min per nasal cannula. She has normal saline at 125 MLS per hour. Her norepinephrine has been off since approximately 4 AM today. She remains on antibiotics in the form of Zosyn. Blood cultures are showing no growth. Chest x-ray revealed some atelectasis at the bases. CT scan of the abdomen revealed no acute process. Trace right pleural effusion. Diverticulosis without evidence of diverticulitis. Uterine fibroid. Renal ultrasound revealed no evidence of hydronephrosis. White count 7.8. Hemoglobin 11.2. Platelets 187. Sodium 138. Potassium 4.3. Bicarb 17. BUN 11. Creatinine 0.55. AST 158. ALT 257. Alk phos 319. She remains on antibiotics in the form of Zosyn. Heparin for DVT prophylaxis. Objective - Vital Signs Vital signs: Vital Signs Temp 98.4 F 05/27/23 03:45 Pulse 87 05/27/23 07:00 Resp 21 05/27/23 07:00 BP 98/61 05/27/23 07:00 Pulse Ox 93 L 05/27/23 07:00 FiO2 Intake & Output 05/26/23 05/27/23 05/27/23 18:59 06:59 18:59 Intake Total 2625.458 1639.419 125 Output Total 590 875 50 Balance 2035.458 764.419 75 Weight 76 kg Intake: IV 1575 1600 125 Piperacillin-Tazobactam 3 200 100 .375 gm In Sodium Chloride 0.9% 100 ml @ 25 mls/hr IVPB Q8HR [facility] Rx# :[id number] Sodium Chloride 0.9% 1, 1375 1500 125 000 ml @ 125 mls/hr IV . Q8H [facility] Rx#:[id number] Intake, IV Titration 120.458 39.419 Amount Norepinephrine 4 mg In 120.458 39.419 Sodium Chloride 0.9% 250 ml @ 0.03 MCG/KG/MIN 8. 814 mls/hr IV .Q24H [facility] Rx#:[id number] Oral 930 Output: Urine 590 875 50 Other: Voiding Method Indwelling Catheter Indwelling Catheter # Bowel Movements 1 1 - Exam GENERAL EXAM: Alert, developmentally delayed, pleasant 73-year-old female, resting tremors, on 2 L nasal cannula, in no apparent distress. HEAD: Normocephalic and atraumatic EYES: Normal reaction of pupils, equal size. NOSE: Clear with pink turbinates. Oropharynx: White plaques on tongue. No significant posterior pharynx erythema or exudates. NECK: No masses, no JVD. CHEST: No chest wall deformity. LUNGS: Equal air entry with mild end expiratory wheezes. On room air. No conversational dyspnea. CVS: S1 and S2 normal with no audible murmur, regular rhythm. No extra heart sounds ABDOMEN: No hepatosplenomegaly, active bowel sounds, no guarding or rigidity. SPINE: No scoliosis or deformity SKIN: No rashes CENTRAL NERVOUS SYSTEM: Neurological exam was brief but nonfocal, tone is normal in all 4 extremities. Resting tremors noted. EXTREMITIES: There is no peripheral edema, clubbing, or cyanosis. Peripheral pulses are intact. - Labs CBC & Chem 7: 05/27/23 05:56 05/27/23 06:05 Labs: Abnormal Lab Results - Last 24 Hours (Table) 05/27/23 05/27/23 Range/Units 05:56 06:05 Hgb 11.2 L (11.4-16.0) gm/dL Lymphocytes # 0.7 L (1.0-4.8) k/uL Chloride 113 H (98-107) mmol/L Carbon Dioxide 17 L (22-30) mmol/L Calcium 7.1 L (8.4-10.2) mg/dL Magnesium 2.6 H (1.6-2.3) mg/dL Total Bilirubin 1.9 H (0.2-1.3) mg/dL AST 158 H (14-36) U/L ALT 257 H (4-34) U/L Alkaline Phosphatase 319 H (38-126) U/L Total Protein 5.7 L (6.3-8.2) g/dL Albumin 3.0 L (3.5-5.0) g/dL Microbiology - Last 24 Hours (Table) 05/25/23 23:15 Blood Culture - Preliminary Blood 05/25/23 23:00 Blood Culture - Preliminary Blood Assessment and Plan Assessment: Acute febrile illness, currently under investigation, possible urinary tract infection Suspected sepsis and septic shock, refractory to fluid resuscitation requiring vasopressors Mild transaminitis Recent outpatient treatment for urinary tract infection, with Bactrim Oral candidiasis History of developmental delay Resting tremors Thyroid nodule, an incidental finding History of hyperlipidemia Plan: The patient was seen and evaluated CT scan of the abdomen, renal ultrasound, chest x-ray, labs and medications reviewed Currently stable and off norepinephrine from approximately 4 AM this morning Continue fluid resuscitation, antibiotics Urine culture pending Transfer to the regular medical floor later this afternoon We will continue to follow I have personally seen and examined the patient, performed the documentation and the assessment and plan as written. Number of minutes spent on the visit: 10.
--- NOTE | 2023-05-27 15:26 | P.PN ---
Subjective Progress Note Date: 05/27/23 Principal diagnosis: Reason for follow-up is fever elevated liver enzymes Patient is a 73-year-old female with a past medical history significant for hypertension hyperlipidemia seizure disorder presenting to the ER for evaluation of fever and weakness, patient also noticed to have fever and elevated liver enzymes, did have a CT of abdominal pelvis did not show any acute process with an abdominal pelvis. On today's evaluation that is 05/27/2023,the patient is more awake and alert today, denies any fever or any chills, patient is breathing comfortably on room air, the patient denies chest pain shortness of breath and no significant cough, patient denies abdominal pain, no nausea vomiting or diarrhea. Patient white count 7.8, creatinine 0.55 liver enzymes remains to be elevated Objective - Vital Signs Vital signs: Vital Signs Temp 98.4 F 05/27/23 03:45 Pulse 87 05/27/23 07:00 Resp 21 05/27/23 07:00 BP 98/61 05/27/23 07:00 Pulse Ox 93 L 05/27/23 07:00 FiO2 Intake & Output 05/26/23 05/27/23 05/27/23 18:59 06:59 18:59 Intake Total 2625.458 1639.419 125 Output Total 590 875 50 Balance 2035.458 764.419 75 Weight 76 kg Intake: IV 1575 1600 125 Piperacillin-Tazobactam 3 200 100 .375 gm In Sodium Chloride 0.9% 100 ml @ 25 mls/hr IVPB Q8HR [facility] Rx# :[id number] Sodium Chloride 0.9% 1, 1375 1500 125 000 ml @ 125 mls/hr IV . Q8H [facility] Rx#:[id number] Intake, IV Titration 120.458 39.419 Amount Norepinephrine 4 mg In 120.458 39.419 Sodium Chloride 0.9% 250 ml @ 0.03 MCG/KG/MIN 8. 814 mls/hr IV .Q24H [facility] Rx#:[id number] Oral 930 Output: Urine 590 875 50 Other: Voiding Method Indwelling Catheter Indwelling Catheter # Bowel Movements 1 1 - Exam GENERAL DESCRIPTION: An elderly female lying in bed in no distress RESPIRATORY SYSTEM: Unlabored breathing , decreased breath sounds at bases HEART: S1 S2 regular rate and rhythm , ABDOMEN: Soft , no tenderness EXTREMITIES: No edema feet - Labs CBC & Chem 7: 05/27/23 05:56 05/27/23 06:05 Labs: Abnormal Lab Results - Last 24 Hours (Table) 05/27/23 05/27/23 Range/Units 05:56 06:05 Hgb 11.2 L (11.4-16.0) gm/dL Lymphocytes # 0.7 L (1.0-4.8) k/uL Chloride 113 H (98-107) mmol/L Carbon Dioxide 17 L (22-30) mmol/L Calcium 7.1 L (8.4-10.2) mg/dL Magnesium 2.6 H (1.6-2.3) mg/dL Total Bilirubin 1.9 H (0.2-1.3) mg/dL AST 158 H (14-36) U/L ALT 257 H (4-34) U/L Alkaline Phosphatase 319 H (38-126) U/L Total Protein 5.7 L (6.3-8.2) g/dL Albumin 3.0 L (3.5-5.0) g/dL Microbiology - Last 24 Hours (Table) 05/25/23 23:15 Blood Culture - Preliminary Blood 05/25/23 23:00 Blood Culture - Preliminary Blood Assessment and Plan (1) Fever Current Visit: Yes Status: Acute Code(s): R50.9 - FEVER, UNSPECIFIED SNOMED Code(s): 735470792 (2) Transaminitis Current Visit: Yes Status: Acute Code(s): R74.01 - ELEVATION OF LEVELS OF LIVER TRANSAMINASE LEVELS SNOMED Code(s): 441945564 Plan: 1patient presented hospital with fever mental status changes in this patient recently completed a course of Bactrim DS for the UTI urine is not significantly positive patient did have elevated liver enzymes and also noticed to have some abdominal distention concerning for possible abdominal source 2- CT of abdominal pelvis with contrast did not show any acute intra-abdominal pathology, we will check viral serology 3-patient to continue with Zosyn 3.375 g. Every 8 hour while waiting for workup to be completed Dictation was produced using [employer] dictation software. please excuse any grammatical, word or spelling errors. Time with Patient: Less than 30
[2023-05-27] MEDS: ALBUTEROL NEBULIZED 2.5 MG/3 ML INHALATION PRN (15:34)
[2023-05-27 18:05] LABS: Glucose,Whole Blood 91 mg/dL (70-110)
[2023-05-27] MEDS ORDERED: IBUPROFEN 400 MG TAB PO PRN (18:46)
[2023-05-27] MEDS: ATORVASTATIN 40 MG TAB PO SCH (20:41)
[2023-05-27] MEDS ORDERED: ARIPiprazole 5 MG TAB PO SCH (21:00)
[2023-05-28 04:25] LABS: ALT 82 U/L (4-34); AST 739 U/L (14-36); African American GFR (CKD) 78 (>60 ml/min/1.73 sqM); Albumin 3.3 g/dL (3.5-5.0); Alkaline Phosphatase 370 U/L (38-126); Anion Gap 13 mmol/L; Blood Urea Nitrogen 17 mg/dL (7-17); Calcium 7.1 mg/dL (8.4-10.2); Carbon Dioxide 10 mmol/L (22-30); Chloride 118 mmol/L (98-107); Glucose 103 mg/dL (74-99); Non-African American GFR(CKD) 68 (>60 ml/min/1.73 sqM); Potassium 4.8 mmol/L (3.5-5.1); Sodium 141 mmol/L (137-145); Total Bilirubin 1.7 mg/dL (0.2-1.3); Total Protein 6.3 g/dL (6.3-8.2)
[2023-05-28 04:50] LABS: C Reactive Protein 18.1 mg/dL (<1.0)
--- NOTE | 2023-05-28 08:30 | XR ---
EXAMINATION TYPE: XR chest 1V portable DATE OF EXAM: 05/28/2023 COMPARISON: 05/27/1999 HISTORY: Hypoxia TECHNIQUE: Single frontal view of the chest is obtained. FINDINGS: Bilateral consolidation and small pleural effusion. Mild interstitial prominence. Heart is mildly enlarged. Atherosclerotic change aorta. Diffuse osteopenia. Degenerative changes spine. IMPRESSION: Findings are progressed slightly representing CHF superimposed on a background of COPD. Correlate clinically to exclude pneumonia.
[2023-05-28] MEDS: FUROSEMIDE 10 MG/ML 4 ML VIAL IV ONE (10:09)
--- NOTE | 2023-05-28 11:00 | P.PN ---
Subjective Progress Note Date: 05/28/23 Patient is a 73-year-old white female with past medical history significant for developmental delay, resting tremors, seizure disorder, hypertension, hyperlipidemia. She lives at a assisted. She is an unreliable historian. She has a legal guardian, which is her sister, who provides much of the inform ation. Patient resides at a assisted. Over the last week or so she has been more confused and weak. She has not been eating much. She had a fall on Wednesday. She was treated outpatient for UTI, and just completed a course of Bactrim. Patient was sent in via EMS for ER evaluation last night. On arrival, she was found to be febrile with a Tmax of 102.3 F. Urinalysis showed trace leukocytes, proteinuria, and trace hematuria. She does endorse some left flank tenderness. Chest x-ray showed borderline cardiomegaly, with mild interstitial densities, but without focal infiltrates. Negative for influenza, RSV, COVID on arrival. CBC on arrival: WBC count 9.8, hemoglobin 11.9, hematocrit 36.3, platelets 204. BMP on arrival: Sodium 134, potassium 4.6, chloride 102, serum bicarb 23, BUN 19, creatinine 1, glucose 119. LFTs mildly elevated including an AST of 280, ALT of 40, ALP of 361. Total bili 1.3. Pancreatic enzymes not elevated. Abdominal ultrasound does not show any obvious liver mass or biliary dilation or gallstones. No right-sided hydronephrosis. Lactic acid level 1.1. Normal saline currently infusing at 75 mL/h. She was noted to be hypotensive despite 2.5 L normal saline bolus. She was started on low-dose norepinephrine which is currently infusing at 0.03 mcg/kg/min, and for this reason was admitted to the intensive care unit. Patient is currently lying in bed, on room air, in no acute distress. She has a significant resting tremor. She is alert and oriented to self only. She is currently afebrile. Empirically covered on Zosyn. Blood and urine cultures are pending. The patient is seen today May 27, 2023 in follow-up in the intensive care unit. She is currently sitting up in bed. Awake and alert in no acute distress. She is maintaining O2 saturations in the 90s on 2 L/min per nasal cannula. She has normal saline at 125 MLS per hour. Her norepinephrine has been off since approximately 4 AM today. She remains on antibiotics in the form of Zosyn. Blood cultures are showing no growth. Chest x-ray revealed some atelectasis at the bases. CT scan of the abdomen revealed no acute process. Trace right pleural effusion. Diverticulosis without evidence of diverticulitis. Uterine fibroid. Renal ultrasound revealed no evidence of hydronephrosis. White count 7.8. Hemoglobin 11.2. Platelets 187. Sodium 138. Potassium 4.3. Bicarb 17. BUN 11. Creatinine 0.55. AST 158. ALT 257. Alk phos 319. She remains on antibiotics in the form of Zosyn. Heparin for DVT prophylaxis. The patient is seen today May 28, 2023 in follow-up in the intensive care unit. She is awake and alert in no acute distress. She is sitting up in bed. She is maintaining O2 saturations in the 90s on 5 L/min per nasal cannula. Chest x-ray is showing some evidence of fluid volume overload. She is receiving normal saline at 125 MLS per hour. She is on antibiotics in the form of Zosyn. Heparin for DVT prophylaxis. Sodium 141. Potassium 4.8. Bicarb 10. BUN 17. Creatinine 0.85. Glucose 103. A ST 739. ALT 82. Alk phos 370. Objective - Vital Signs Vital signs: Vital Signs Temp 97.4 F L 05/28/23 08:00 Pulse 93 05/28/23 08:00 Resp 35 H 05/28/23 08:00 BP 112/72 05/28/23 08:00 Pulse Ox 94 L 05/28/23 08:00 FiO2 Intake & Output 05/27/23 05/28/23 05/28/23 18:59 06:59 18:59 Intake Total 1500 150 Output Total 575 630 Balance 925 -480 Intake: IV 1500 150 Piperacillin-Tazobactam 3 25 .375 gm In Sodium Chloride 0.9% 100 ml @ 25 mls/hr IVPB Q8HR [facility] Rx# :[id number] Sodium Chloride 0.9% 1, 1500 125 000 ml @ 125 mls/hr IV . Q8H [facility] Rx#:[id number] Oral 0 Output: Urine 575 630 Other: Voiding Method Indwelling Catheter Indwelling Catheter Indwelling Catheter # Bowel Movements 1 1 - Exam GENERAL EXAM: Alert, developmentally delayed 73-year-old female, resting tremors, on 5 L nasal cannula, in no apparent distress. HEAD: Normocephalic and atraumatic EYES: Normal reaction of pupils, equal size. NOSE: Clear with pink turbinates. Oropharynx: White plaques on tongue. No significant posterior pharynx erythema or exudates. NECK: No masses, no JVD. CHEST: No chest wall deformity. LUNGS: Equal air entry with mild end expiratory wheezes, crackles in the posterior bases. No conversational dyspnea. CVS: S1 and S2 normal with no audible murmur, regular rhythm. No extra heart sounds ABDOMEN: No hepatosplenomegaly, active bowel sounds, no guarding or rigidity. SPINE: No scoliosis or deformity SKIN: No rashes CENTRAL NERVOUS SYSTEM: Neurological exam was brief but nonfocal, tone is normal in all 4 extremities. Resting tremors noted. EXTREMITIES: There is no peripheral edema, clubbing, or cyanosis. Peripheral pulses are intact. - Labs CBC & Chem 7: 05/27/23 05:56 05/28/23 03:53 Labs: Abnormal Lab Results - Last 24 Hours (Table) 05/28/23 Range/Units 03:53 Chloride 118 H (98-107) mmol/L Carbon Dioxide 10 L (22-30) mmol/L Glucose 103 H (74-99) mg/dL Calcium 7.1 L (8.4-10.2) mg/dL Total Bilirubin 1.7 H (0.2-1.3) mg/dL AST 739 H (14-36) U/L ALT 82 H (4-34) U/L Alkaline Phosphatase 370 H (38-126) U/L C-Reactive Protein 18.1 H (<1.0) mg/dL Albumin 3.3 L (3.5-5.0) g/dL Microbiology - Last 24 Hours (Table) 05/25/23 23:15 Blood Culture - Preliminary Blood 05/25/23 23:00 Blood Culture - Preliminary Blood 05/26/23 05:01 Urine Culture - Preliminary Urine,Catheterized Assessment and Plan Assessment: Acute febrile illness, currently under investigation, possible urinary tract infection Suspected sepsis and septic shock, refractory to fluid resuscitation requiring vasopressors, recovered Mild transaminitis mild worsening Recent outpatient treatment for urinary tract infection, with Bactrim Oral candidiasis History of developmental delay Resting tremors Thyroid nodule, an incidental finding History of hyperlipidemia Plan: The patient was seen and evaluated Chest x-ray, labs and medications reviewed Discontinue IV fluids Lasix 40 mg IVP x 1 Add sodium bicarb tablets Titrate the FiO2 as tolerated Continue Zosyn Heparin for DVT prophylaxis CODE STATUS should be addressed We will continue to follow I have personally seen and examined the patient, performed the documentation and the assessment and plan as written. Number of minutes spent on the visit: 10.
[2023-05-28] MEDS: SODIUM BICARBONATE TAB 650 MG TAB PO SCH (11:18)
--- NOTE | 2023-05-28 11:38 | P.PN ---
Subjective Progress Note Date: 05/28/23 Patient is a 73-year-old female half-way resident with hypertension, dyslipidemia, psychotic disorder, and multiple other comorbid conditions who presented with acute confusion, weakness, falls, and fever. On arrival she was febrile with a temp of 102.3. Initial laboratory analysis was remarkable for sodium of 134 AST 280 ALT 40 and alkaline phosphatase of 360. Initial urinalysis showed 7 white blood cells. Patient tested negative for influenza A/B/RSV/COVID-19. Initial chest x-ray showed possible bronchitis or asthma with no focal infiltrates. CT head and cervical spine demonstrated no acute intracranial abnormality with rounded enlargement of the left lobe of the thyroid gland measuring 3.3 cm. She was admitted for sepsis with suspected intra abdominal versus UTI source. She was hypotensive in the ER and received 2.5 L of crystalloid, she continued to have low blood pressures and required a norepinephrine drip. She was started on Zosyn. Patient was admitted to the ICU. Critical care was consulted. Gallbladder ultrasound was obtained which shows a heterogeneous liver with increased cortical echogenicity in the right kidney consistent with chronic medical renal disease. Her norepinephrine was able to be weaned by the morning of 05/27. She underwent CT abdomen and pelvis which showed no acute process. Patient seen and examined at bedside. She endorses feeling short of breath and tired today. She denies any chest discomfort or nausea. Her tremors are better than yesterday. Vital signs reviewed General: Nontoxic, ill appearing, appears at stated age Cardiovascular: S1S2 reg, no murmur Lungs: Course bs b/l bilateral, no rhonchi, no rales, no accessory muscle use Abdominal: Soft, nontender to palpation, no guarding Ext: No gross muscle atrophy, 1+ edema b/l lower extremities, no contractures, + modeling at knee Neuro: CN II-XI grossly intact, + tremors, + hypophonia Psych: Alert, oriented, appropriate affect Assessment/Plan: Septic shock with unclear source Probable urinary tract infection Vs EBV infection, recent complete and of Bactrim for outpatient UTI Acute metabolic encephalopathy, improving Transaminitis -Zosyn 3.375 g IV piggyback every 8 hours day #3 - Liver US without acute process or ductal dilitation -Continue Abilify 2 mg in the morning and 5 mg at night, Cymbalta 60 mg twice daily -Continue to hold gabapentin, BuSpar, Ativan -carbidopa levodopa 1 tablet oral 3 times daily -With concerns for possible continued urinary tract infection will continue to hold Myrbetriq - Start propranolol at 60 mg (1/2 home dose) -Case discussed with infectious disease. Suspicion is for infectious mononucleosis. -Await hepatitis acute panel, EBV, and CMV testing. -Repeat CMP in AM. -Pulmonary note reviewed: Decrease IV fluids, Lasix 40 mg IV push x 1, start sodium bicarb tablets Oral candidiasis - Nystatin swish and swallow D # 3 Hyperchloremic metabolic acidosis. -Agree with sodium bicarb 650 mg 3 times daily. Thyroid gland enlargement -Outpatient thyroid ultrasound once acute illness has resolved Chronic: History of developmental delay Parkinsonism Anxiety/depression/psychotic disorder Dyslipidemia Overactive bladder Imaging: Chest x-ray reviewed-increased pulmonary vascular congestion Hospital Course Imaging: CT abdomen and pelvis: No acute intracranial process, linear hypoattenuation of the dome of the liver, trace pleural effusions, uterine fibroid. Renal ultrasound: Simple 3.2 x 3.3 cm right renal cyst, hypoechoic nodule left kidney Data Review: Laboratory analysis reviewed for today includes CMP C-reactive protein which are remarkable for chloride 118, carbon dioxide 10, anion gap 13, BUN 17, creatinine 0.85, total bilirubin 1.7, AST 739, ALT 82, alkaline phosphatase 370, CRP 18.1 DVT prophylaxis: Heparin Anticipated discharge date: Pending Clinical Course Anticipated discharge place: Pending Clinical Course This dictation was prepared using [employer] voice recognition software. Though every attempt is made to correct errors during dictation some may still exist. Objective - Vital Signs Vital signs: Vital Signs Temp 97.4 F L 05/28/23 08:00 Pulse 93 05/28/23 08:00 Resp 35 H 05/28/23 08:00 BP 112/72 05/28/23 08:00 Pulse Ox 94 L 05/28/23 08:00 FiO2 Intake & Output 05/27/23 05/28/23 05/28/23 18:59 06:59 18:59 Intake Total 1500 150 Output Total 575 630 Balance 925 -480 Intake: IV 1500 150 Piperacillin-Tazobactam 3 25 .375 gm In Sodium Chloride 0.9% 100 ml @ 25 mls/hr IVPB Q8HR [facility] Rx# :[id number] Sodium Chloride 0.9% 1, 1500 125 000 ml @ 125 mls/hr IV . Q8H [facility] Rx#:[id number] Oral 0 Output: Urine 575 630 Other: Voiding Method Indwelling Catheter Indwelling Catheter Indwelling Catheter # Bowel Movements 1 1 - Labs CBC & Chem 7: 05/27/23 05:56 05/28/23 03:53 Labs: Abnormal Lab Results - Last 24 Hours (Table) 05/28/23 Range/Units 03:53 Chloride 118 H (98-107) mmol/L Carbon Dioxide 10 L (22-30) mmol/L Glucose 103 H (74-99) mg/dL Calcium 7.1 L (8.4-10.2) mg/dL Total Bilirubin 1.7 H (0.2-1.3) mg/dL AST 739 H (14-36) U/L ALT 82 H (4-34) U/L Alkaline Phosphatase 370 H (38-126) U/L C-Reactive Protein 18.1 H (<1.0) mg/dL Albumin 3.3 L (3.5-5.0) g/dL Microbiology - Last 24 Hours (Table) 05/25/23 23:15 Blood Culture - Preliminary Blood 05/25/23 23:00 Blood Culture - Preliminary Blood 05/26/23 05:01 Urine Culture - Preliminary Urine,Catheterized
[2023-05-28 12:00] LABS: HGB 11.4 gm/dL (11.4-16.0); Hypochromasia Marked; MCH 28.4 pg (25.0-35.0); MCHC 30.8 g/dL (31.0-37.0); MCV 92.2 fL (80.0-100.0); Mean Platelet Volume 7.8; Platelet Count 307 k/uL (150-450); RBC 4.01 m/uL (3.80-5.40); RDW 15.1 % (11.5-15.5); WBC 14.3 k/uL (3.8-10.6)
--- NOTE | 2023-05-28 12:22 | P.PN ---
Subjective Progress Note Date: 05/28/23 Principal diagnosis: Reason for follow-up is fever elevated liver enzymes Patient is a 73-year-old female with a past medical history significant for hypertension hyperlipidemia seizure disorder presenting to the ER for evaluation of fever and weakness, patient also noticed to have fever and elevated liver enzymes, did have a CT of abdominal pelvis did not show any acute process with an abdominal pelvis. On today's evaluation that is 05/28/2023,the patient did have a low-grade fever 100.7 last evening however the patient is afebrile this morning and overall fever pattern has improved, patient is 6 L nasal cannula supplemental oxygen which is new compared to yesterday however the patientdenies any shortness of breath no chest pain did have occasional cough.Patient denies having any nausea or vomiting, no abdominal pain and no diarrhea has been reported. Patient white count is 14.3, CRP is 18.1 liver enzymes remains to be elevated EBV serology and procalcitonin currently pending Objective - Vital Signs Vital signs: Vital Signs Temp 98.2 F 05/28/23 02:00 Pulse 106 H 05/28/23 03:00 Resp 22 05/28/23 02:00 BP 120/85 05/28/23 02:00 Pulse Ox 94 L 05/28/23 02:00 FiO2 Intake & Output 05/27/23 05/28/23 05/28/23 18:59 06:59 18:59 Intake Total 1500 150 Output Total 575 630 Balance 925 -480 Intake: IV 1500 150 Piperacillin-Tazobactam 3 25 .375 gm In Sodium Chloride 0.9% 100 ml @ 25 mls/hr IVPB Q8HR [facility] Rx# :[id number] Sodium Chloride 0.9% 1, 1500 125 000 ml @ 125 mls/hr IV . Q8H [facility] Rx#:[id number] Oral 0 Output: Urine 575 630 Other: Voiding Method Indwelling Catheter Indwelling Catheter # Bowel Movements 1 1 - Exam GENERAL DESCRIPTION: An elderly female lying in bed in no distress RESPIRATORY SYSTEM: Unlabored breathing , decreased breath sounds at bases HEART: S1 S2 regular rate and rhythm , ABDOMEN: Soft , no tenderness EXTREMITIES: No edema feet - Labs CBC & Chem 7: 05/28/23 11:43 05/28/23 03:53 Labs: Abnormal Lab Results - Last 24 Hours (Table) 05/28/23 Range/Units 03:53 Chloride 118 H (98-107) mmol/L Carbon Dioxide 10 L (22-30) mmol/L Glucose 103 H (74-99) mg/dL Calcium 7.1 L (8.4-10.2) mg/dL Total Bilirubin 1.7 H (0.2-1.3) mg/dL AST 739 H (14-36) U/L ALT 82 H (4-34) U/L Alkaline Phosphatase 370 H (38-126) U/L C-Reactive Protein 18.1 H (<1.0) mg/dL Albumin 3.3 L (3.5-5.0) g/dL Microbiology - Last 24 Hours (Table) 05/25/23 23:15 Blood Culture - Preliminary Blood 05/25/23 23:00 Blood Culture - Preliminary Blood 05/26/23 05:01 Urine Culture - Preliminary Urine,Catheterized Assessment and Plan (1) Fever Current Visit: Yes Status: Acute Code(s): R50.9 - FEVER, UNSPECIFIED SNOMED Code(s): 627922227 (2) Transaminitis Current Visit: Yes Status: Acute Code(s): R74.01 - ELEVATION OF LEVELS OF LIVER TRANSAMINASE LEVELS SNOMED Code(s): 964192608 Plan: 1patient presented hospital with fever mental status changes in this patient recently completed a course of Bactrim DS for the UTI urine is not significantly positive patient did have elevated liver enzymes and also noticed to have some abdominal distention concerning for possible abdominal source 2- CT of abdominal pelvis with contrast did not show any acute intra-abdominal pathology, we will check viral serology 3-patient fever pattern has improved however did have persistent elevated white count requiring further workup. Currently waiting for EBV CMV serology as well as procalcitonin patient also have changed her respiratory status requiring more supplemental oxygen, chest x-ray from this morning mention finding up progressed slightly representing CHF simple post on background of COPD while waiting for the procalcitonin patient is covered with Zosyn try to obtain a sputum Case discussed with the admitting physician Patient care also discussed in detail with the family member on the phone last night Dictation was produced using [employer] dictation software. please excuse any grammatical, word or spelling errors. Time with Patient: Greater than 30
[2023-05-28 15:32] LABS: Hepatitis A Antibody IgM Nonreactive; Hepatitis B Core IgM Nonreactive; Hepatitis B Surface Antigen Nonreactive; Hepatitis C IgG Antibody Nonreactive; Procalcitonin 2.77 ng/mL (0.02-0.09)
[2023-05-28] MEDS: PROPRANOLOL LA 60 MG CAP.SA.24H PO SCH (16:19)
[2023-05-28 16:37] LABS: EBV-EA (IgG) >8.0 AI; EBV-EBNA(IgG) >8.0; EBV-VCA (IgG) 7.6 AI
[2023-05-29 04:34] LABS: HCT 34.3 % (34.0-46.0); HGB 10.8 gm/dL (11.4-16.0); Hypochromasia Slight; MCH 28.3 pg (25.0-35.0); MCHC 31.5 g/dL (31.0-37.0); MCV 89.8 fL (80.0-100.0); Mean Platelet Volume 8.3; Platelet Count 318 k/uL (150-450); RBC 3.82 m/uL (3.80-5.40); RDW 15.2 % (11.5-15.5); WBC 12.1 k/uL (3.8-10.6)
[2023-05-29 04:44] LABS: ALT 134 U/L (4-34); AST 436 U/L (14-36); African American GFR (CKD) 84 (>60 ml/min/1.73 sqM); Albumin 2.8 g/dL (3.5-5.0); Alkaline Phosphatase 304 U/L (38-126); Anion Gap 3 mmol/L; Blood Urea Nitrogen 24 mg/dL (7-17); Calcium 7.3 mg/dL (8.4-10.2); Carbon Dioxide 27 mmol/L (22-30); Chloride 111 mmol/L (98-107); Glucose 107 mg/dL (74-99); Non-African American GFR(CKD) 73 (>60 ml/min/1.73 sqM); Potassium 3.3 mmol/L (3.5-5.1); Sodium 141 mmol/L (137-145); Total Bilirubin 1.2 mg/dL (0.2-1.3); Total Protein 5.5 g/dL (6.3-8.2)
[2023-05-29] MEDS ORDERED: Potassium Replacement Protocol 1 EACH MISC MISCELLANE PRN (04:54)
[2023-05-29] MEDS: POTASSIUM CHLORIDE 10 MEQ in WATER FOR INJECTION 1 100ML.BAG IVPB SCH (05:08)
--- NOTE | 2023-05-29 06:28 | XR ---
EXAM: XR chest 1V portable CLINICAL INDICATION:Female, 73 years old with history of PNA; [facility] COMPARISON: Chest x-ray 05/28/2023 and older exams TECHNIQUE: Chest single view. FINDINGS: Lines/tubes/devices: EKG leads overlie the chest. No indwelling lines are seen. Cardiomediastinum: Stable CM silhouette. Mild enlargement of the heart. Atherosclerotic calcifications of the aorta. Vasculature: Interval decrease in the degree of central vascular congestion and interstitial promine nce. Lungs/pleura: Decreased small pleural effusions. Patchy opacities suggesting airspace disease bilaterally, most pro minent on the left in the lung base, again noted with slight increase suggested towards the right linda g apex. No visible pneumothorax. Bones/soft tissues: Bony thorax appears grossly unchanged as seen. Regional soft tissues appear unremarkable. IMPRESSION: 1. Improved pulmonary vascular congestion and decreased small pleural effusions compared to prior. 2. Patchy opacities suggesting airspace disease bilaterally, most prominent on the left in the lung base, again noted with slight increase suggested towards the right lung apex. Findings may represent superimposed pneumonia. Correlate clinically and follow-up to resolution.
--- NOTE | 2023-05-29 08:24 | P.PN ---
Subjective Progress Note Date: 05/29/23 Patient is a 73-year-old female halfway resident with hypertension, dyslipidemia, psychotic disorder, and multiple other comorbid conditions who presented with acute confusion, weakness, falls, and fever. On arrival she was febrile with a temp of 102.3. Initial laboratory analysis was remarkable for sodium of 134 AST 280 ALT 40 and alkaline phosphatase of 360. Initial urinalysis showed 7 white blood cells. Patient tested negative for influenza A/B/RSV/COVID-19. Initial chest x-ray showed possible bronchitis or asthma with no focal infiltrates. CT head and cervical spine demonstrated no acute intracranial abnormality with rounded enlargement of the left lobe of the thyroid gland measuring 3.3 cm. She was admitted for sepsis with suspected intra abdominal versus UTI source. She was hypotensive in the ER and received 2.5 L of crystalloid, she continued to have low blood pressures and required a norepinephrine drip. She was started on Zosyn. Patient was admitted to the ICU. Critical care was consulted. Gallbladder ultrasound was obtained which shows a heterogeneous liver with increased cortical echogenicity in the right kidney consistent with chronic medical renal disease. Her norepinephrine was able to be weaned by the morning of 05/27. She underwent CT abdomen and pelvis which showed no acute process. Patient seen and examined at bedside. Her better than yesterday. She denies any pain or nausea. Discussed with nursing. Had 1 episode of low blood pressure overnight but has otherwise been stable. Had bowel movement yesterday. Vital signs reviewed General: Nontoxic, nontoxic, appears at stated age Cardiovascular: S1S2 reg, no murmur Lungs: Course bs b/l bilateral, no rhonchi, no rales, no accessory muscle use Abdominal: Soft, nontender to palpation, no guarding Ext: No gross muscle atrophy, 1+ edema b/l lower extremities, no contractures Neuro: CN II-XI grossly intact, + tremors, + hypophonia Psych: Alert, oriented, appropriate affect Assessment/Plan: Septic shock with unclear source Acute metabolic encephalopathy, improving Transaminitis, Improving UTI, ruled out, culture negative -question possible pneumonia?, Could consider CT chest for more definitive evaluation if pulmonary and infectious disease in agreement. -Possible recent infectious mononucleosis but procal is >2 so does point to possible bacterial etiology, BC NTD -Zosyn 3.375 g IV piggyback every 8 hours day #4 - Liver US without acute process or ductal dilitation -Continue Abilify 2 mg in the morning and 5 mg at night, Cymbalta 60 mg twice daily -Continue to hold gabapentin, BuSpar, Ativan -carbidopa levodopa 1 tablet oral 3 times daily -Await further pulmonary recommendations -Infectious disease note noted from 05/28: Continue with Zosyn, obtain sputum. -Discontinue Angulo catheter Oral candidiasis - Nystatin swish and swallow D # 4 Hyperchloremic metabolic acidosis. -Decrease sodium bicarb to 650 mg twice daily Thyroid gland enlargement -Outpatient thyroid ultrasound once acute illness has resolved Chronic: History of developmental delay Parkinsonism Anxiety/depression/psychotic disorder Dyslipidemia Overactive bladder Imaging: Chest x-ray reviewed by myself which shows improved pulmonary vascular congestion but possible increasing bilateral infiltrate Hospital Course Imaging: CT abdomen and pelvis: No acute intracranial process, linear hypoattenuation of the dome of the liver, trace pleural effusions, uterine fibroid. Renal ultrasound: Simple 3.2 x 3.3 cm right renal cyst, hypoechoic nodule left kidney Chest x-ray reviewed-increased pulmonary vascular congestion Data Review: Labs reviewed from today include CBC and CMP which are remarkable for white blood cell count 12.1, potassium 3.3, BUN 24, AST 436, ALT 134. Procalcitonin was greater than 2 at 2.77. Patient CMV was nonreactive, hepatitis AB and C are negative. It appears that patient may have had recent EBV infection Urinalysis negative Blood cultures negative for 72 hours DVT prophylaxis: Heparin Anticipated discharge date: Pending Clinical Course Anticipated discharge place: Pending Clinical Course This dictation was prepared using [employer] voice recognition software. Though every attempt is made to correct errors during dictation some may still exist. Objective - Vital Signs Vital signs: Vital Signs Temp 97.9 F 05/29/23 01:46 Pulse 81 05/29/23 01:46 Resp 22 05/29/23 01:46 BP 89/56 05/29/23 01:46 Pulse Ox 96 05/29/23 01:46 FiO2 Intake & Output 05/28/23 05/29/23 05/29/23 18:59 06:59 18:59 Intake Total 100 Output Total 480 Balance -380 Intake: IV 100 Potassium Chloride 10 meq 100 In Water For Injection 1 100ml.bag @ 100 mls/hr IVPB Q1HR [facility] Rx#: [id number] Output: Urine 480 Other: Voiding Method Indwelling Catheter Indwelling Catheter - Labs CBC & Chem 7: 05/29/23 03:57 05/29/23 03:57 Labs: Abnormal Lab Results - Last 24 Hours (Table) 05/28/23 05/28/23 05/28/23 Range/Units 08:57 08:57 11:43 WBC 14.3 H (3.8-10.6) k/uL Hgb (11.4-16.0) gm/dL MCHC 30.8 L (31.0-37.0) g/dL Potassium (3.5-5.1) mmol/L Chloride (98-107) mmol/L BUN (7-17) mg/dL Glucose (74-99) mg/dL Calcium (8.4-10.2) mg/dL AST (14-36) U/L ALT (4-34) U/L Alkaline Phosphatase (38-126) U/L Total Protein (6.3-8.2) g/dL Albumin (3.5-5.0) g/dL Procalcitonin 2.77 H (0.02-0.09) ng/mL EBV Capsid Ag IgG Intrp Positive A (Negative) EBV EA IgG Ab Interp Positive A (Negative) EBV Nuc Ag IgG Interp Positive A (Negative) 05/29/23 05/29/23 Range/Units 03:57 03:57 WBC 12.1 H (3.8-10.6) k/uL Hgb 10.8 L (11.4-16.0) gm/dL MCHC (31.0-37.0) g/dL Potassium 3.3 L (3.5-5.1) mmol/L Chloride 111 H (98-107) mmol/L BUN 24 H (7-17) mg/dL Glucose 107 H (74-99) mg/dL Calcium 7.3 L (8.4-10.2) mg/dL AST 436 H (14-36) U/L ALT 134 H (4-34) U/L Alkaline Phosphatase 304 H (38-126) U/L Total Protein 5.5 L (6.3-8.2) g/dL Albumin 2.8 L (3.5-5.0) g/dL Procalcitonin (0.02-0.09) ng/mL EBV Capsid Ag IgG Intrp (Negative) EBV EA IgG Ab Interp (Negative) EBV Nuc Ag IgG Interp (Negative) Microbiology - Last 24 Hours (Table) 05/25/23 23:15 Blood Culture - Preliminary Blood 05/25/23 23:00 Blood Culture - Preliminary Blood 05/26/23 05:01 Urine Culture - Final Urine,Catheterized
--- NOTE | 2023-05-29 11:08 | P.PN ---
Subjective Progress Note Date: 05/29/23 Patient is a 73-year-old white female with past medical history significant for developmental delay, resting tremors, seizure disorder, hypertension, hyperlipidemia. She lives at a custodial. She is an unreliable historian. She has a legal guardian, which is her sister, who provides much of the inform ation. Patient resides at a custodial. Over the last week or so she has been more confused and weak. She has not been eating much. She had a fall on Wednesday. She was treated outpatient for UTI, and just completed a course of Bactrim. Patient was sent in via EMS for ER evaluation last night. On arrival, she was found to be febrile with a Tmax of 102.3 F. Urinalysis showed trace leukocytes, proteinuria, and trace hematuria. She does endorse some left flank tenderness. Chest x-ray showed borderline cardiomegaly, with mild interstitial densities, but without focal infiltrates. Negative for influenza, RSV, COVID on arrival. CBC on arrival: WBC count 9.8, hemoglobin 11.9, hematocrit 36.3, platelets 204. BMP on arrival: Sodium 134, potassium 4.6, chloride 102, serum bicarb 23, BUN 19, creatinine 1, glucose 119. LFTs mildly elevated including an AST of 280, ALT of 40, ALP of 361. Total bili 1.3. Pancreatic enzymes not elevated. Abdominal ultrasound does not show any obvious liver mass or biliary dilation or gallstones. No right-sided hydronephrosis. Lactic acid level 1.1. Normal saline currently infusing at 75 mL/h. She was noted to be hypotensive despite 2.5 L normal saline bolus. She was started on low-dose norepinephrine which is currently infusing at 0.03 mcg/kg/min, and for this reason was admitted to the intensive care unit. Patient is currently lying in bed, on room air, in no acute distress. She has a significant resting tremor. She is alert and oriented to self only. She is currently afebrile. Empirically covered on Zosyn. Blood and urine cultures are pending. The patient is seen today May 27, 2023 in follow-up in the intensive care unit. She is currently sitting up in bed. Awake and alert in no acute distress. She is maintaining O2 saturations in the 90s on 2 L/min per nasal cannula. She has normal saline at 125 MLS per hour. Her norepinephrine has been off since approximately 4 AM today. She remains on antibiotics in the form of Zosyn. Blood cultures are showing no growth. Chest x-ray revealed some atelectasis at the bases. CT scan of the abdomen revealed no acute process. Trace right pleural effusion. Diverticulosis without evidence of diverticulitis. Uterine fibroid. Renal ultrasound revealed no evidence of hydronephrosis. White count 7.8. Hemoglobin 11.2. Platelets 187. Sodium 138. Potassium 4.3. Bicarb 17. BUN 11. Creatinine 0.55. AST 158. ALT 257. Alk phos 319. She remains on antibiotics in the form of Zosyn. Heparin for DVT prophylaxis. The patient is seen today May 28, 2023 in follow-up in the intensive care unit. She is awake and alert in no acute distress. She is sitting up in bed. She is maintaining O2 saturations in the 90s on 5 L/min per nasal cannula. Chest x-ray is showing some evidence of fluid volume overload. She is receiving normal saline at 125 MLS per hour. She is on antibiotics in the form of Zosyn. Heparin for DVT prophylaxis. Sodium 141. Potassium 4.8. Bicarb 10. BUN 17. Creatinine 0.85. Glucose 103. A ST 739. ALT 82. Alk phos 370. The patient is seen today May 29, 2023 in follow-up in the intensive care unit. She is currently sitting up in bed. Awake and alert in no acute distress. She is maintaining good O2 saturations in the 90s on 2 L/min per nasal cannula. She has normal saline at KVO. She is continued on Zosyn. She has not required any norepinephrine. She did diurese well from the Lasix yesterday. Currently in a negative balance. Chest x-ray reveals improved pulmonary vascular congestion and decreased small pleural effusions compared to previous. Patchy opacities suggesting airspace disease bilaterally more so on the left lung base. Procalcitonin 2.77. White count 12.1. Hemoglobin 10.8. Platelets 318. Sodium 141. Potassium 3.3. Bicarb 27. BUN 24. Creatinine 0.80. AST 436. ALT 134. Alk phos 304. Remains on heparin for DVT prophylaxis. Objective - Vital Signs Vital signs: Vital Signs Temp 97.7 F 05/29/23 08:00 Pulse 100 02/24/24 08:00 Resp 18 05/29/23 08:20 BP 110/65 05/29/23 08:00 Pulse Ox 94 L 05/29/23 08:20 FiO2 Intake & Output 05/28/23 05/29/23 05/29/23 18:59 06:59 18:59 Intake Total 100 Output Total 480 Balance -380 Intake: IV 100 Potassium Chloride 10 meq 100 In Water For Injection 1 100ml.bag @ 100 mls/hr IVPB Q1HR [facility] Rx#: [id number] Output: Urine 480 Other: Voiding Method Indwelling Catheter Indwelling Catheter Indwelling Catheter - Exam GENERAL EXAM: Alert, developmentally delayed 73-year-old female, resting tremors, on 2 L nasal cannula, in no apparent distress. HEAD: Normocephalic and atraumatic EYES: Normal reaction of pupils, equal size. NOSE: Clear with pink turbinates. Oropharynx: White plaques on tongue. No significant posterior pharynx erythema or exudates. NECK: No masses, no JVD. CHEST: No chest wall deformity. LUNGS: Equal air entry with mild end expiratory wheezes, crackles in the posterior bases. No conversational dyspnea. CVS: S1 and S2 normal with no audible murmur, regular rhythm. No extra heart sounds ABDOMEN: No hepatosplenomegaly, active bowel sounds, no guarding or rigidity. SPINE: No scoliosis or deformity SKIN: No rashes CENTRAL NERVOUS SYSTEM: Neurological exam was brief but nonfocal, tone is normal in all 4 extremities. Resting tremors noted. EXTREMITIES: There is no peripheral edema, clubbing, or cyanosis. Peripheral pulses are intact. - Labs CBC & Chem 7: 05/29/23 03:57 05/29/23 03:57 Labs: Abnormal Lab Results - Last 24 Hours (Table) 05/28/23 05/28/23 05/28/23 Range/Units 08:57 08:57 11:43 WBC 14.3 H (3.8-10.6) k/uL Hgb (11.4-16.0) gm/dL MCHC 30.8 L (31.0-37.0) g/dL Potassium (3.5-5.1) mmol/L Chloride (98-107) mmol/L BUN (7-17) mg/dL Glucose (74-99) mg/dL Calcium (8.4-10.2) mg/dL AST (14-36) U/L ALT (4-34) U/L Alkaline Phosphatase (38-126) U/L Total Protein (6.3-8.2) g/dL Albumin (3.5-5.0) g/dL Procalcitonin 2.77 H (0.02-0.09) ng/mL EBV Capsid Ag IgG Intrp Positive A (Negative) EBV EA IgG Ab Interp Positive A (Negative) EBV Nuc Ag IgG Interp Positive A (Negative) 05/29/23 05/29/23 Range/Units 03:57 03:57 WBC 12.1 H (3.8-10.6) k/uL Hgb 10.8 L (11.4-16.0) gm/dL MCHC (31.0-37.0) g/dL Potassium 3.3 L (3.5-5.1) mmol/L Chloride 111 H (98-107) mmol/L BUN 24 H (7-17) mg/dL Glucose 107 H (74-99) mg/dL Calcium 7.3 L (8.4-10.2) mg/dL AST 436 H (14-36) U/L ALT 134 H (4-34) U/L Alkaline Phosphatase 304 H (38-126) U/L Total Protein 5.5 L (6.3-8.2) g/dL Albumin 2.8 L (3.5-5.0) g/dL Procalcitonin (0.02-0.09) ng/mL EBV Capsid Ag IgG Intrp (Negative) EBV EA IgG Ab Interp (Negative) EBV Nuc Ag IgG Interp (Negative) Microbiology - Last 24 Hours (Table) 05/25/23 23:15 Blood Culture - Preliminary Blood 05/25/23 23:00 Blood Culture - Preliminary Blood 05/26/23 05:01 Urine Culture - Final Urine,Catheterized Assessment and Plan Assessment: Acute febrile illness, currently under investigation, possible pneumonia Suspected sepsis and septic shock, refractory to fluid resuscitation requiring vasopressors, recovered Mild transaminitis mild worsening Recent outpatient treatment for urinary tract infection, with Bactrim Oral candidiasis History of developmental delay Resting tremors Thyroid nodule, an incidental finding History of hyperlipidemia Plan: The patient was seen and evaluated Chest x-ray, labs and medications reviewed Titrate the FiO2 as tolerated Continue Zosyn Heparin for DVT prophylaxis Transfer to the regular medical floor today We will continue to follow I have personally seen and examined the patient, performed the documentation and the assessment and plan as written. Number of minutes spent on the visit: 10.
--- NOTE | 2023-05-29 11:25 | P.PN ---
Subjective Progress Note Date: 05/29/23 Principal diagnosis: Reason for follow-up is fever elevated liver enzymes Patient is a 73-year-old female with a past medical history significant for hypertension hyperlipidemia seizure disorder presenting to the ER for evaluation of fever and weakness, patient also noticed to have fever and elevated liver enzymes, did have a CT of abdominal pelvis did not show any acute process with an abdominal pelvis. On today's evaluation that is 05/29/2023, the patient continues to be afebrile, the patient is on 2 L nasal cannula oxygen and breathing comfortably, the Pt denies having any chest pain or worsening cough and no sputum production per the nursing staff, the patient denies having any abdominal pain no vomiting or any diarrhea has been reported by the nursing staff. Patient white count is down to 12.1, creatinine 0.80 liver exams are improving EBV early antigen positive CMV negative hepatitis panel negative, procalcitonin is 2.77 Objective - Vital Signs Vital signs: Vital Signs Temp 97.7 F 05/29/23 08:00 Pulse 100 05/29/23 08:00 Resp 18 05/29/23 08:20 BP 110/65 05/29/23 08:00 Pulse Ox 94 L 05/29/23 08:20 FiO2 Intake & Output 05/28/23 05/29/23 05/29/23 18:59 06:59 18:59 Intake Total 100 Output Total 480 Balance -380 Intake: IV 100 Potassium Chloride 10 meq 100 In Water For Injection 1 100ml.bag @ 100 mls/hr IVPB Q1HR [facility] Rx#: [id number] Output: Urine 480 Other: Voiding Method Indwelling Catheter Indwelling Catheter Indwelling Catheter - Exam GENERAL DESCRIPTION: An elderly female lying in bed in no distress RESPIRATORY SYSTEM: Unlabored breathing , decreased breath sounds at bases HEART: S1 S2 regular rate and rhythm , ABDOMEN: Soft , no tenderness EXTREMITIES: No edema feet - Labs CBC & Chem 7: 05/29/23 03:57 05/29/23 03:57 Labs: Abnormal Lab Results - Last 24 Hours (Table) 05/28/23 05/28/23 05/28/23 Range/Units 08:57 08:57 11:43 WBC 14.3 H (3.8-10.6) k/uL Hgb (11.4-16.0) gm/dL MCHC 30.8 L (31.0-37.0) g/dL Potassium (3.5-5.1) mmol/L Chloride (98-107) mmol/L BUN (7-17) mg/dL Glucose (74-99) mg/dL Calcium (8.4-10.2) mg/dL AST (14-36) U/L ALT (4-34) U/L Alkaline Phosphatase (38-126) U/L Total Protein (6.3-8.2) g/dL Albumin (3.5-5.0) g/dL Procalcitonin 2.77 H (0.02-0.09) ng/mL EBV Capsid Ag IgG Intrp Positive A (Negative) EBV EA IgG Ab Interp Positive A (Negative) EBV Nuc Ag IgG Interp Positive A (Negative) 05/29/23 05/29/23 Range/Units 03:57 03:57 WBC 12.1 H (3.8-10.6) k/uL Hgb 10.8 L (11.4-16.0) gm/dL MCHC (31.0-37.0) g/dL Potassium 3.3 L (3.5-5.1) mmol/L Chloride 111 H (98-107) mmol/L BUN 24 H (7-17) mg/dL Glucose 107 H (74-99) mg/dL Calcium 7.3 L (8.4-10.2) mg/dL AST 436 H (14-36) U/L ALT 134 H (4-34) U/L Alkaline Phosphatase 304 H (38-126) U/L Total Protein 5.5 L (6.3-8.2) g/dL Albumin 2.8 L (3.5-5.0) g/dL Procalcitonin (0.02-0.09) ng/mL EBV Capsid Ag IgG Intrp (Negative) EBV EA IgG Ab Interp (Negative) EBV Nuc Ag IgG Interp (Negative) Microbiology - Last 24 Hours (Table) 05/25/23 23:15 Blood Culture - Preliminary Blood 05/25/23 23:00 Blood Culture - Preliminary Blood 05/26/23 05:01 Urine Culture - Final Urine,Catheterized Assessment and Plan (1) Fever Current Visit: Yes Status: Acute Code(s): R50.9 - FEVER, UNSPECIFIED SNOMED Code(s): 828028705 (2) Transaminitis Current Visit: Yes Status: Acute Code(s): R74.01 - ELEVATION OF LEVELS OF LIVER TRANSAMINASE LEVELS SNOMED Code(s): 007464909 Plan: 1patient presented hospital with fever mental status changes in this patient recently completed a course of Bactrim DS for the UTI urine is not significantly positive patient did have elevated liver enzymes and also noticed to have some abdominal distention concerning for possible abdominal source 2- CT of abdominal pelvis with contrast did not show any acute intra-abdominal pathology, we will check viral serology 3-patient fever pattern has improved, EBV early antigen is positive clinical picture is suggestive of EBV infection and the patient seem to have shown improvement and neuroexams are improving we will continue to monitor closely 4patient also have respiratory symptoms hypoxemia pulmonary filtrate elevated procalcitonin and possible component of pneumonia covered with Zosyn to continue 5oral thrush continue with the nystatin swish and swallow Dictation was produced using [employer] dictation software. please excuse any grammatical, word or spelling errors. Time with Patient: Greater than 30
[2023-05-29] MEDS: SODIUM BICARBONATE TAB 650 MG TAB PO SCH (19:54)
[2023-05-30 01:31] LABS: Glucose,Whole Blood 161 mg/dL (70-110)
[2023-05-30 06:38] LABS: ALT 166 U/L (4-34); AST 697 U/L (14-36); African American GFR (CKD) >90 (>60 ml/min/1.73 sqM); Albumin 3.2 g/dL (3.5-5.0); Alkaline Phosphatase 308 U/L (38-126); Anion Gap 6 mmol/L; Blood Urea Nitrogen 33 mg/dL (7-17); Calcium 7.9 mg/dL (8.4-10.2); Carbon Dioxide 22 mmol/L (22-30); Chloride 117 mmol/L (98-107); Glucose 123 mg/dL (74-99); Non-African American GFR(CKD) 81 (>60 ml/min/1.73 sqM); Sodium 145 mmol/L (137-145); Total Bilirubin 1.4 mg/dL (0.2-1.3); Total Protein 6.3 g/dL (6.3-8.2)
[2023-05-30 06:39] LABS: HCT 33.6 % (34.0-46.0); HGB 10.6 gm/dL (11.4-16.0); Hypochromasia Slight; MCH 28.6 pg (25.0-35.0); MCHC 31.7 g/dL (31.0-37.0); MCV 90.2 fL (80.0-100.0); Mean Platelet Volume 8.2; Platelet Count 374 k/uL (150-450); RBC 3.72 m/uL (3.80-5.40); RDW 15.1 % (11.5-15.5); WBC 13.4 k/uL (3.8-10.6)
--- NOTE | 2023-05-30 08:33 | XR ---
EXAM: XR chest 1V portable CLINICAL INDICATION:Female, 73 years old with history of hypoxia; [facility] COMPARISON: 05/29/2023 and before TECHNIQUE: Chest single view. FINDINGS: Lines/tubes/devices: EKG leads and extraneous densities overlie the chest. No indwelling lines are s een. Cardiomediastinum: Cardiac silhouette appears stable, mildly enlarged. Stable mediastinal silhouette. Atherosclerotic calcifications of the aorta. Vasculature: Slightly increased pulmonary vascular congestion and interstitial markings compared to previous. Lungs/pleura: Likely background chronic changes of COPD. Increased bibasilar opacities suggestive of airspace disea se with small pleural effusions. Otherwise patchy airspace disease most prominent towards the right l opal apex appears similar to previous. No visualized pneumothorax. Bones/soft tissues: Osseous structures appear grossly stable. Degenerative changes of the spine and shoulders. Regional s oft tissues appear unremarkable. IMPRESSION: 1. Cardiomegaly with slightly increased pulmonary vascular congestion. 2. Increased bibasilar opacities suggestive of airspace disease with small pleural effusions. 3. Otherwise patchy airspace disease most prominent towards the right lung apex appears similar to p revious.
[2023-05-30] MEDS: FUROSEMIDE 10 MG/ML 2 ML VIAL IV ONE (10:48)
--- NOTE | 2023-05-30 11:15 | P.PN ---
Subjective Progress Note Date: 05/30/23 Patient is a 73-year-old white female with past medical history significant for developmental delay, resting tremors, seizure disorder, hypertension, hyperlipidemia. She lives at a retirement. She is an unreliable historian. She has a legal guardian, which is her sister, who provides much of the inform ation. Patient resides at a retirement. Over the last week or so she has been more confused and weak. She has not been eating much. She had a fall on Wednesday. She was treated outpatient for UTI, and just completed a course of Bactrim. Patient was sent in via EMS for ER evaluation last night. On arrival, she was found to be febrile with a Tmax of 102.3 F. Urinalysis showed trace leukocytes, proteinuria, and trace hematuria. She does endorse some left flank tenderness. Chest x-ray showed borderline cardiomegaly, with mild interstitial densities, but without focal infiltrates. Negative for influenza, RSV, COVID on arrival. CBC on arrival: WBC count 9.8, hemoglobin 11.9, hematocrit 36.3, platelets 204. BMP on arrival: Sodium 134, potassium 4.6, chloride 102, serum bicarb 23, BUN 19, creatinine 1, glucose 119. LFTs mildly elevated including an AST of 280, ALT of 40, ALP of 361. Total bili 1.3. Pancreatic enzymes not elevated. Abdominal ultrasound does not show any obvious liver mass or biliary dilation or gallstones. No right-sided hydronephrosis. Lactic acid level 1.1. Normal saline currently infusing at 75 mL/h. She was noted to be hypotensive despite 2.5 L normal saline bolus. She was started on low-dose norepinephrine which is currently infusing at 0.03 mcg/kg/min, and for this reason was admitted to the intensive care unit. Patient is currently lying in bed, on room air, in no acute distress. She has a significant resting tremor. She is alert and oriented to self only. She is currently afebrile. Empirically covered on Zosyn. Blood and urine cultures are pending. The patient is seen today May 27, 2023 in follow-up in the intensive care unit. She is currently sitting up in bed. Awake and alert in no acute distress. She is maintaining O2 saturations in the 90s on 2 L/min per nasal cannula. She has normal saline at 125 MLS per hour. Her norepinephrine has been off since approximately 4 AM today. She remains on antibiotics in the form of Zosyn. Blood cultures are showing no growth. Chest x-ray revealed some atelectasis at the bases. CT scan of the abdomen revealed no acute process. Trace right pleural effusion. Diverticulosis without evidence of diverticulitis. Uterine fibroid. Renal ultrasound revealed no evidence of hydronephrosis. White count 7.8. Hemoglobin 11.2. Platelets 187. Sodium 138. Potassium 4.3. Bicarb 17. BUN 11. Creatinine 0.55. AST 158. ALT 257. Alk phos 319. She remains on antibiotics in the form of Zosyn. Heparin for DVT prophylaxis. The patient is seen today May 28, 2023 in follow-up in the intensive care unit. She is awake and alert in no acute distress. She is sitting up in bed. She is maintaining O2 saturations in the 90s on 5 L/min per nasal cannula. Chest x-ray is showing some evidence of fluid volume overload. She is receiving normal saline at 125 MLS per hour. She is on antibiotics in the form of Zosyn. Heparin for DVT prophylaxis. Sodium 141. Potassium 4.8. Bicarb 10. BUN 17. Creatinine 0.85. Glucose 103. A ST 739. ALT 82. Alk phos 370. The patient is seen today May 29, 2023 in follow-up in the intensive care unit. She is currently sitting up in bed. Awake and alert in no acute distress. She is maintaining good O2 saturations in the 90s on 2 L/min per nasal cannula. She has normal saline at KVO. She is continued on Zosyn. She has not required any norepinephrine. She did diurese well from the Lasix yesterday. Currently in a negative balance. Chest x-ray reveals improved pulmonary vascular congestion and decreased small pleural effusions compared to previous. Patchy opacities suggesting airspace disease bilaterally more so on the left lung base. Procalcitonin 2.77. White count 12.1. Hemoglobin 10.8. Platelets 318. Sodium 141. Potassium 3.3. Bicarb 27. BUN 24. Creatinine 0.80. AST 436. ALT 134. Alk phos 304. Remains on heparin for DVT prophylaxis. The patient is seen today May 30, 2023 in follow-up on the regular medical floor. She was transferred out of the intensive care unit yesterday. She is currently sitting up in bed. Awake and alert. She is still requiring 5 L high flow nasal cannula to maintain O2 saturations in the 90s. Her procalcitonin was 2.77. She is also being worked up for possible Alicia-Almanzar virus. Blood cultures revealed no growth. Chest x-ray revealed cardiomegaly with slightly increased pulmonary vascular congestion. Increased basilar opacities suggestive of airspace disease with small pleural effusions. She was given Lasix today. Continued on Zosyn. Heparin for DVT prophylaxis. White count 13.4. Hemoglobin 10.6. Platelets 374. Sodium 145. Potassium 5.0. Bicarb 22. BUN 33. Creatinine 0.74. AST 697. ALT 166. Objective - Vital Signs Vital signs: Vital Signs Temp 98.3 F 05/30/23 08:00 Pulse 86 05/30/23 08:00 Resp 19 05/30/23 08:00 BP 114/75 05/30/23 08:00 Pulse Ox 93 L 05/30/23 08:32 FiO2 Intake & Output 05/29/23 05/30/23 05/30/23 18:59 06:59 18:59 Intake Total 470 Output Total 140 Balance 330 Intake: IV 470 .9 kvo 70 Piperacillin-Tazobactam 3 200 .375 gm In Sodium Chloride 0.9% 100 ml @ 25 mls/hr IVPB Q8HR [facility] Rx# :[id number] Potassium Chloride 10 meq 200 In Water For Injection 1 100ml.bag @ 100 mls/hr IVPB Q1HR [facility] Rx#: [id number] Output: Urine 140 Other: Voiding Method Indwelling Catheter Indwelling Catheter # Voids 1 2 # Bowel Movements 1 - Exam GENERAL EXAM: Alert, developmentally delayed 73-year-old female, resting tremors, on 5 L nasal cannula, in no apparent distress. HEAD: Normocephalic and atraumatic EYES: Normal reaction of pupils, equal size. NOSE: Clear with pink turbinates. Oropharynx: No significant posterior pharynx erythema or exudates. NECK: No masses, no JVD. CHEST: No chest wall deformity. LUNGS: Equal air entry with mild end expiratory wheezes, crackles in the posterior bases. No conversational dyspnea. CVS: S1 and S2 normal with no audible murmur, regular rhythm. No extra heart sounds ABDOMEN: No hepatosplenomegaly, active bowel sounds, no guarding or rigidity. SPINE: No scoliosis or deformity SKIN: No rashes CENTRAL NERVOUS SYSTEM: Neurological exam was brief but nonfocal, tone is normal in all 4 extremities. Resting tremors noted. EXTREMITIES: There is no peripheral edema, clubbing, or cyanosis. Peripheral pulses are intact. - Labs CBC & Chem 7: 05/30/23 05:51 05/30/23 05:51 Labs: Abnormal Lab Results - Last 24 Hours (Table) 05/30/23 05/30/23 05/30/23 Range/Units 01:28 05:51 05:51 WBC 13.4 H (3.8-10.6) k/uL RBC 3.72 L (3.80-5.40) m/uL Hgb 10.6 L (11.4-16.0) gm/dL Hct 33.6 L (34.0-46.0) % Chloride 117 H (98-107) mmol/L BUN 33 H (7-17) mg/dL Glucose 123 H (74-99) mg/dL POC Glucose (mg/dL) 161 H (70-110) mg/dL Calcium 7.9 L (8.4-10.2) mg/dL Total Bilirubin 1.4 H (0.2-1.3) mg/dL AST 697 H (14-36) U/L ALT 166 H (4-34) U/L Alkaline Phosphatase 308 H (38-126) U/L Albumin 3.2 L (3.5-5.0) g/dL Assessment and Plan Assessment: Acute hypoxemic respiratory failure secondary to volume overload, suspected pneumonia. Treated with diuretics and Zosyn Acute febrile illness, secondary to above, recovered Suspected sepsis and septic shock, refractory to fluid resuscitation requiring vasopressors, recovered Suspected Alicia Almanzar virus Transaminitis mild worsening Recent outpatient treatment for urinary tract infection, with Bactrim Oral candidiasis History of developmental delay Resting tremors Thyroid nodule, an incidental finding History of hyperlipidemia Plan: The patient was seen and evaluated Chest x-ray, labs and medications reviewed Lasix 40 mg IVP x 1 Obtain an echocardiogram Continue Zosyn Titrate the FiO2 as tolerated We will continue to follow I have personally seen and examined the patient, performed the documentation and the assessment and plan as written. Number of minutes spent on the visit: 10.
[2023-05-30] MEDS: FUROSEMIDE 10 MG/ML 4 ML VIAL IV STA (12:19)
--- NOTE | 2023-05-30 13:04 | P.PN ---
Subjective Progress Note Date: 05/30/23 (delayed charting seen at 1005) Patient is a 73-year-old female [facility] resident with hypertension, dyslipidemia, psychotic disorder, and multiple other comorbid conditions who presented with acute confusion, weakness, falls, and fever. On arrival she was febrile with a temp of 102.3. Initial laboratory analysis was remarkable for sodium of 134 AST 280 ALT 40 and alkaline phosphatase of 360. Initial urinalysis showed 7 white blood cells. Patient tested negative for influenza A/B/RSV/COVID-19. Initial chest x-ray showed possible bronchitis or asthma with no focal infiltrates. CT head and cervical spine demonstrated no acute intracranial abnormality with rounded enlargement of the left lobe of the thyroid gland measuring 3.3 cm. She was admitted for sepsis with suspected intra abdominal versus UTI source. She was hypotensive in the ER and received 2.5 L of crystalloid, she continued to have low blood pressures and required a norepinephrine drip. She was started on Zosyn. Patient was admitted to the ICU. Critical care was consulted. Gallbladder ultrasound was obtained which shows a heterogeneous liver with increased cortical echogenicity in the right kidney consistent with chronic medical renal disease. Her norepinephrine was able to be weaned by the morning of 05/27. She underwent CT abdomen and pelvis which showed no acute process. Testing revealed infectious mononucleosis. She had an episode of hypoxia on 05/30/24 and was given lasix 40 mg IVP X 1. Patient seen and examined at bedside. Her better than yesterday. She denies any pain or nausea. Discussed with nursing. Had 1 episode of low blood pressure overnight but has otherwise been stable. Had bowel movement yesterday. Vital signs reviewed General: Nontoxic, nontoxic, appears at stated age Cardiovascular: S1S2 reg, no murmur Lungs: Course bs b/l bilateral, no rhonchi, no rales, no accessory muscle use Abdominal: Soft, nontender to palpation, no guarding Ext: No gross muscle atrophy, 1+ edema b/l lower extremities, no contractures Neuro: CN II-XI grossly intact, + tremors, + hypophonia Psych: Alert, oriented, appropriate affect Assessment/Plan: Septic shock with unclear source Acute metabolic encephalopathy, improving infectious mononucleosis Transaminitis, Improving UTI, ruled out, culture negative -Pulmonary note reviewed: She continues on Zosyn, obtain echo -Await further infectious disease recommendations -Lasix 40 mg IV x 1. Check echocardiogram. -Possible recent infectious mononucleosis but procal is >2 so does point to possible bacterial etiology as well , BC NTD -Zosyn 3.375 g IV piggyback every 8 hours day #5 - Liver US without acute process or ductal dilitation -Continue Abilify 2 mg in the morning and 5 mg at night, Cymbalta 60 mg twice daily -Continue to hold gabapentin, BuSpar, Ativan -carbidopa levodopa 1 tablet oral 3 times daily Oral candidiasis - Nystatin swish and swallow D # 5 Hyperchloremic metabolic acidosis. -Sodium bicarb to 650 mg twice daily Thyroid gland enlargement -Outpatient thyroid ultrasound once acute illness has resolved Chronic: History of developmental delay Parkinsonism Anxiety/depression/psychotic disorder Dyslipidemia Overactive bladder Imaging: Chest x-ray is reviewed by myself shows right small effusion with blunting of costophrenic cliff, patchy airspace disease Hospital Course Imaging: CT abdomen and pelvis: No acute intracranial process, linear hypoattenuation of the dome of the liver, trace pleural effusions, uterine fibroid. Renal ultrasound: Simple 3.2 x 3.3 cm right renal cyst, hypoechoic nodule left kidney Chest x-ray reviewed-increased pulmonary vascular congestion Data Review: Labs reviewed from today include CBC and basic metabolic profile which are remarkable for white blood cell count 13.4, hemoglobin 10.6, chloride 117, total bilirubin 1.4, AST 667, ALT 166 Urinalysis negative Blood cultures negative for 72 hours DVT prophylaxis: Heparin Anticipated discharge date: Pending Clinical Course Anticipated discharge place: Pending Clinical Course This dictation was prepared using [employer] voice recognition software. Though every attempt is made to correct errors during dictation some may still exist. Objective - Vital Signs Vital signs: Vital Signs Temp 98.3 F 05/30/23 08:00 Pulse 86 05/30/23 08:00 Resp 19 05/30/23 08:00 BP 114/75 05/30/23 08:00 Pulse Ox 93 L 05/30/23 08:32 FiO2 Intake & Output 05/29/23 05/30/23 05/30/23 18:59 06:59 18:59 Intake Total 470 Output Total 140 Balance 330 Intake: IV 470 .9 kvo 70 Piperacillin-Tazobactam 3 200 .375 gm In Sodium Chloride 0.9% 100 ml @ 25 mls/hr IVPB Q8HR [facility] Rx# :[id number] Potassium Chloride 10 meq 200 In Water For Injection 1 100ml.bag @ 100 mls/hr IVPB Q1HR [facility] Rx#: [id number] Output: Urine 140 Other: Voiding Method Indwelling Catheter Indwelling Catheter Diaper Incontinent # Voids 1 2 # Bowel Movements 1 - Labs CBC & Chem 7: 05/30/23 05:51 05/30/23 05:51 Labs: Abnormal Lab Results - Last 24 Hours (Table) 05/30/23 05/30/23 05/30/23 Range/Units 01:28 05:51 05:51 WBC 13.4 H (3.8-10.6) k/uL RBC 3.72 L (3.80-5.40) m/uL Hgb 10.6 L (11.4-16.0) gm/dL Hct 33.6 L (34.0-46.0) % Chloride 117 H (98-107) mmol/L BUN 33 H (7-17) mg/dL Glucose 123 H (74-99) mg/dL POC Glucose (mg/dL) 161 H (70-110) mg/dL Calcium 7.9 L (8.4-10.2) mg/dL Total Bilirubin 1.4 H (0.2-1.3) mg/dL AST 697 H (14-36) U/L ALT 166 H (4-34) U/L Alkaline Phosphatase 308 H (38-126) U/L Albumin 3.2 L (3.5-5.0) g/dL
--- NOTE | 2023-05-30 14:41 | P.PN ---
Subjective Progress Note Date: 05/30/23 Principal diagnosis: Reason for follow-up is fever elevated liver enzymes Patient is a 73-year-old female with a past medical history significant for hypertension hyperlipidemia seizure disorder presenting to the ER for evaluation of fever and weakness, patient also noticed to have fever and elevated liver enzymes, did have a CT of abdominal pelvis did not show any acute process with an abdominal pelvis. On today's evaluation that is 05/30/2023, Patient is afebrile ,patient is currently on 3 L nasal cannula oxygen and denies having any shortness of breath, the patient denies any chest pain or worsening cough and no sputum production, the patient denies any nausea vomiting did not have any abdominal pain and no diarrhea. Patient white count is 13.4, creatinine 0.74 blood cultures are pending chest x- ray this morning bibasilar opacity Objective - Vital Signs Vital signs: Vital Signs Temp 98.3 F 05/30/23 08:00 Pulse 86 05/30/23 08:00 Resp 19 05/30/23 08:00 BP 114/75 05/30/23 08:00 Pulse Ox 93 L 05/30/23 08:32 FiO2 Intake & Output 05/29/23 05/30/23 05/30/23 18:59 06:59 18:59 Intake Total 470 Output Total 140 Balance 330 Intake: IV 470 .9 kvo 70 Piperacillin-Tazobactam 3 200 .375 gm In Sodium Chloride 0.9% 100 ml @ 25 mls/hr IVPB Q8HR [facility] Rx# :[id number] Potassium Chloride 10 meq 200 In Water For Injection 1 100ml.bag @ 100 mls/hr IVPB Q1HR [facility] Rx#: [id number] Output: Urine 140 Other: Voiding Method Indwelling Catheter Indwelling Catheter Diaper Incontinent # Voids 1 2 # Bowel Movements 1 - Exam GENERAL DESCRIPTION: An elderly female lying in bed in no distress RESPIRATORY SYSTEM: Unlabored breathing , decreased breath sounds at bases HEART: S1 S2 regular rate and rhythm , ABDOMEN: Soft , no tenderness EXTREMITIES: No edema feet - Labs CBC & Chem 7: 05/30/23 05:51 05/30/23 05:51 Labs: Abnormal Lab Results - Last 24 Hours (Table) 05/30/23 05/30/23 05/30/23 Range/Units 01:28 05:51 05:51 WBC 13.4 H (3.8-10.6) k/uL RBC 3.72 L (3.80-5.40) m/uL Hgb 10.6 L (11.4-16.0) gm/dL Hct 33.6 L (34.0-46.0) % Chloride 117 H (98-107) mmol/L BUN 33 H (7-17) mg/dL Glucose 123 H (74-99) mg/dL POC Glucose (mg/dL) 161 H (70-110) mg/dL Calcium 7.9 L (8.4-10.2) mg/dL Total Bilirubin 1.4 H (0.2-1.3) mg/dL AST 697 H (14-36) U/L ALT 166 H (4-34) U/L Alkaline Phosphatase 308 H (38-126) U/L Albumin 3.2 L (3.5-5.0) g/dL Assessment and Plan (1) Fever Current Visit: Yes Status: Acute Code(s): R50.9 - FEVER, UNSPECIFIED SNOMED Code(s): 335904049 (2) Transaminitis Current Visit: Yes Status: Acute Code(s): R74.01 - ELEVATION OF LEVELS OF LIVER TRANSAMINASE LEVELS SNOMED Code(s): 725941041 Plan: 1patient presented hospital with fever mental status changes in this patient recently completed a course of Bactrim DS for the UTI urine is not significantly positive patient did have elevated liver enzymes and also noticed to have some abdominal distention concerning for possible abdominal source 2- CT of abdominal pelvis with contrast did not show any acute intra-abdominal pathology, we will check viral serology 3-patient fever pattern has improved, EBV early antigen is positive clinical picture is suggestive of EBV infection and the patient seem to have shown improvement and liver enzymes are improving we will continue to monitor closely 4patient also have respiratory symptoms hypoxemia pulmonary filtrate elevated procalcitonin and possible component of pneumonia patient is currently covered with Zosyn try to obtain a sputum 5oral thrush continue with the nystatin swish and swallow and monitor clinical course closely Dictation was produced using [employer] dictation software. please excuse any grammatical, word or spelling errors. Time with Patient: Less than 30
[2023-05-31 08:28] LABS: ALT 289 U/L (8-44); AST 371 U/L (13-35); Albumin/Globulin Ratio 1.15 Ratio (1.60-3.17); Alkaline Phosphatase 273 U/L (41-126); BUN/Creat Ratio 36.75 Ratio (12.00-20.00); Blood Urea Nitrogen 29.4 mg/dL (9.0-27.0); Carbon Dioxide 31.4 mmol/L (21.6-31.8); Chloride 108 mmol/L (96-109); Globulin 2.6 g/dL (1.6-3.3); Glucose 125 mg/dL (70-110); Potassium 3.6 mmol/L (3.5-5.5); Sodium 148 mmol/L (135-145); Total Bilirubin 0.7 mg/dL (0.3-1.2); Total Protein 5.6 g/dL (6.2-8.2)
[2023-05-31 08:31] LABS: HCT 30.1 % (37.2-46.3); HGB 9.5 g/dL (12.0-15.0); MCH 27.9 pg (27.0-32.0); MCHC 31.6 g/dL (32.0-37.0); MCV 88.5 FL (80.0-97.0); Mean Platelet Volume 10.2 FL (9.5-12.2); NRBC Per 100 WBC 0.04 X 10*3/uL (0.00-0.01); Platelet Count 338 X 10*3/uL (140-440); RDW 15.7 % (11.5-14.5); WBC 12.85 X 10*3/uL (4.50-10.00)
[2023-05-31 09:35] LABS: EBV-VCA (IgM) sent to ARUP AI
--- NOTE | 2023-05-31 12:09 | P.PN ---
Subjective Progress Note Date: 05/31/23 Principal diagnosis: Reason for follow-up is fever elevated liver enzymes Patient is a 73-year-old female with a past medical history significant for hypertension hyperlipidemia seizure disorder presenting to the ER for evaluation of fever and weakness, patient also noticed to have fever and elevated liver enzymes, did have a CT of abdominal pelvis did not show any acute process with an abdominal pelvis. On today's evaluation that is 05/31/2023,the patient denies any fever or any chills, patient is breathing comfortably on 5 L nasal cannula oxygen, the patient denies chest pain shortness of breath and no worsening cough or sputum production, patient denies abdominal pain, no nausea vomiting or diarrhea. Patient white count is down to 12.5, creatinine 0.8 liver enzymes are improving. Objective - Vital Signs Vital signs: Vital Signs Temp 97.3 F L 05/31/23 07:21 Pulse 66 05/31/23 07:21 Resp 19 05/31/23 07:21 BP 122/73 05/31/23 07:21 Pulse Ox 98 05/31/23 07:54 FiO2 Intake & Output 05/30/23 05/31/23 05/31/23 18:59 06:59 18:59 Output Total 2100 400 Balance -2100 -400 Output: Urine 2100 400 Other: Voiding Method Diaper Diaper Incontinent Incontinent External Catheter # Voids 1 - Exam GENERAL DESCRIPTION: An elderly female lying in bed in no distress RESPIRATORY SYSTEM: Unlabored breathing , decreased breath sounds at bases HEART: S1 S2 regular rate and rhythm , ABDOMEN: Soft , no tenderness EXTREMITIES: No edema feet - Labs CBC & Chem 7: 05/31/23 05:19 05/31/23 05:19 Labs: Abnormal Lab Results - Last 24 Hours (Table) 05/31/23 05/31/23 Range/Units 05:19 05:19 WBC 12.85 H (4.50-10.00) X 10*3/uL RBC 3.40 L (4.10-5.20) X 10*6/uL Hgb 9.5 L (12.0-15.0) g/dL Hct 30.1 L (37.2-46.3) % MCHC 31.6 L (32.0-37.0) g/dL RDW 15.7 H (11.5-14.5) % NRBC/100 WBC Diff 0.04 H (0.00-0.01) X 10*3/uL Sodium 148 H (135-145) mmol/L BUN 29.4 H (9.0-27.0) mg/dL BUN/Creatinine Ratio 36.75 H (12.00-20.00) Ratio Glucose 125 H (70-110) mg/dL Calcium 8.0 L (8.7-10.3) mg/dL AST 371 H (13-35) U/L ALT 289 H (8-44) U/L Alkaline Phosphatase 273 H (41-126) U/L Total Protein 5.6 L (6.2-8.2) g/dL Albumin 3.0 L (3.8-4.9) g/dL Albumin/Globulin Ratio 1.15 L (1.60-3.17) Ratio Microbiology - Last 24 Hours (Table) 05/25/23 23:15 Blood Culture - Final Blood 05/25/23 23:00 Blood Culture - Final Blood Assessment and Plan (1) Fever Current Visit: Yes Status: Acute Code(s): R50.9 - FEVER, UNSPECIFIED SNOMED Code(s): 261255794 (2) Transaminitis Current Visit: Yes Status: Acute Code(s): R74.01 - ELEVATION OF LEVELS OF LIVER TRANSAMINASE LEVELS SNOMED Code(s): 923592049 Plan: 1patient presented hospital with fever mental status changes in this patient recently completed a course of Bactrim DS for the UTI urine is not significantly positive patient did have elevated liver enzymes and also noticed to have some abdominal distention concerning for possible abdominal source 2- CT of abdominal pelvis with contrast did not show any acute intra-abdominal pathology, we will check viral serology 3-patient fever pattern has improved, EBV early antigen is positive clinical picture is suggestive of EBV infection and the patient seem to have shown improvement and liver enzymes are improving we will continue to monitor closely 4oral thrush continue with the nystatin swish and swallow 5-patient also have respiratory symptoms hypoxemia pulmonary filtrate elevated procalcitonin and possible component of pneumonia patient is currently covered with Zosyn to continue while inpatient transition to oral antibiotics on discharge Dictation was produced using [employer] dictation software. please excuse any grammatical, word or spelling errors. Time with Patient: Less than 30
--- NOTE | 2023-05-31 15:32 | P.PN ---
Subjective Progress Note Date: 05/31/23 Patient is a 73-year-old white female with past medical history significant for developmental delay, resting tremors, seizure disorder, hypertension, hyperlipidemia. [facility] lives [facility] a [facility]. She is an unreliable historian. She has a legal guardian, which is her sister, who provides much of the infor mation. Patient resides at a [facility]. Over the last week or so she has been more confused and weak. She has not been eating much. She had a fall on Wednesday. She was treated outpatient for UTI, and just completed a course of Bactrim. Patient was sent in via EMS for ER evaluation last night. On arrival, she was found to be febrile with a Tmax of 102.3 F. Urinalysis showed trace leukocytes, proteinuria, and trace hematuria. She does endorse some left flank tenderness. Chest x-ray showed borderline cardiomegaly, with mild interstitial densities, but without focal infiltrates. Negative for influenza, RSV, COVID on arrival. CBC on arrival: WBC count 9.8, hemoglobin 11.9, hematocrit 36.3, platelets 204. BMP on arrival: Sodium 134, potassium 4.6, chloride 102, serum bicarb 23, BUN 19, creatinine 1, glucose 119. LFTs mildly elevated including an AST of 280, ALT of 40, ALP of 361. Total bili 1.3. Pancreatic enzymes not elevated. Abdominal ultrasound does not show any obvious liver mass or biliary dilation or gallstones. No right-sided hydronephrosis. Lactic acid level 1.1. Normal saline currently infusing at 75 mL/h. She was noted to be hypotensive despite 2.5 L normal saline bolus. She was started on low-dose norepinephrine which is currently infusing at 0.03 mcg/kg/min, and for this reason was admitted to the intensive care unit. Patient is currently lying in bed, on room air, in no acute distress. She has a significant resting tremor. She is alert and oriented to self only. She is currently afebrile. Empirically covered on Zosyn. Blood and urine cultures are pending. The patient is seen today May 27, 2023 in follow-up in the intensive care unit. She is currently sitting up in bed. Awake and alert in no acute distress. She is maintaining O2 saturations in the 90s on 2 L/min per nasal cannula. She has normal saline at 125 MLS per hour. Her norepinephrine has been off since approximately 4 AM today. She remains on antibiotics in the form of Zosyn. Blood cultures are showing no growth. Chest x-ray revealed some atelectasis at the bases. CT scan of the abdomen revealed no acute process. Trace right pleural effusion. Diverticulosis without evidence of diverticulitis. Uterine fibroid. Renal ultrasound revealed no evidence of hydr onephrosis. White count 7.8. Hemoglobin 11.2. Platelets 187. Sodium 138. Potassium 4.3. Bicarb 17. BUN 11. Creatinine 0.55. AST 158. ALT 257. Alk phos 319. She remains on antibiotics in the form of Zosyn. Heparin for DVT prophylaxis. The patient is seen today May 28, 2023 in follow-up in the intensive care unit. She is awake and alert in no acute distress. She is sitting up in bed. She is maintaining O2 saturations in the 90s on 5 L/min per nasal cannula. Chest x-ray is showing some evidence of fluid volume overload. She is receiving normal saline at 125 MLS per hour. She is on antibiotics in the form of Zosyn. Heparin for DVT prophylaxis. Sodium 141. Potassium 4.8. Bicarb 10. BUN 17. Creatinine 0.85. Glucose 103. A ST 739. ALT 82. Alk phos 370. The patient is seen today May 29, 2023 in follow-up in the intensive care unit. She is currently sitting up in bed. Awake and alert in no acute distress. She is maintaining good O2 saturations in the 90s on 2 L/min per nasal cannula. She has normal saline at KVO. She is continued on Zosyn. She has not required any norepinephrine. She did diurese well from the Lasix yesterday. Currently in a negative balance. Chest x-ray reveals improved pulmonary vascular congestion and decreased small pleural effusions compared to previous. Patchy opacities suggesting airspace disease bilaterally more so on the left lung base. Procalcitonin 2.77. White count 12.1. Hemoglobin 10.8. Platelets 318. Sodium 141. Potassium 3.3. Bicarb 27. BUN 24. Creatinine 0.80. AST 436. ALT 134. Alk phos 304. Remains on heparin for DVT prophylaxis. The patient is seen today May 30, 2023 in follow-up on the regular medical floor. She was transferred out of the intensive care unit yesterday. She is currently sitting up in bed. Awake and alert. She is still requiring 5 L high flow nasal cannula to maintain O2 saturations in the 90s. Her procalcitonin was 2.77. She is also being worked up for possible Alicia-Almanzar virus. Blood cultures revealed no growth. Chest x-ray revealed cardiomegaly with slightly increased pulmonary vascular congestion. Increased basilar opacities suggestive of airspace disease with small pleural effusions. She was given Lasix today. Continued on Zosyn. Heparin for DVT prophylaxis. White count 13.4. Hemoglobin 10.6. Platelets 374. Sodium 145. Potassium 5.0. Bicarb 22. BUN 33. Creatinine 0.74. AST 697. ALT 166. On today's evaluation of 05/31/2023, the patient is being seen in follow-up regarding hypoxic failure and volume overload. The patient is doing well and she is calm and comfortable. The patient has no specific complaints. The pat ient is currently on40s of oxygen by nasal cannula with a pulse ox of 94%. The chest x-ray from yesterday was reviewed and the patient was found to have some cardiomegaly and increased pulm vascular markings and some limited nonspecific patchy densities bilaterally. The patient is currently on IV Zosyn. The white cell count is down to 12.5 and the creatinine is stable at 0.8 and her liver function are still abnormal. The bilirubin is at 0.7 yet the AST is at 371 and ALT is at 289 and the numbers are higher compared to yesterday. Hemoglobin stable at 9.5. CAT scan of the abdomen and pelvis that was done on 05/26/2023 showed no acute intra-abdominal abnormalities. There was diverticulo sis without any diverticulitis and there was a uterine fibroid. She is quite debilitated. She has resting tremors. She has developmental delay. No hepatotoxic agents at this point in time. Patient is being seen by infectious disease regarding fever and the patient completed the course of Bactrim for UTI and the urine cultures on 05/26/2022 were negative. The patient also has an EBV antigen is positive that could have been affecting the patient's abnormal LFTs. The procalcitonin level was also elevated at 2.77 concerning for bacterial pneumonia and the patient was covered with IV Zosyn. Objective - Vital Signs Vital signs: Vital Signs Temp 97.3 F L 05/31/23 07:21 Pulse 66 05/31/23 07:21 Resp 19 05/31/23 07:21 BP 122/73 05/31/23 07:21 Pulse Ox 98 05/31/23 07:54 FiO2 Intake & Output 05/30/23 05/31/23 05/31/23 18:59 06:59 18:59 Output Total 2100 400 Balance -2100 -400 Output: Urine 2100 400 Other: Voiding Method Diaper Diaper Incontinent Incontinent External Catheter # Voids 1 - Exam GENERAL EXAM: Alert, developmentally delayed 73-year-old female, resting tremors, on 5 L nasal cannula, in no apparent distress. HEAD: Normocephalic and atraumatic EYES: Normal reaction of pupils, equal size. NOSE: Clear with pink turbinates. Oropharynx: No significant posterior pharynx erythema or exudates. NECK: No masses, no JVD. CHEST: No chest wall deformity. LUNGS: Equal air entry with mild end expiratory wheezes, crackles in the posterior bases. No conversational dyspnea. CVS: S1 and S2 normal with no audible murmur, regular rhythm. No extra heart sounds ABDOMEN: No hepatosplenomegaly, active bowel sounds, no guarding or rigidity. SPINE: No scoliosis or deformity SKIN: No rashes CENTRAL NERVOUS SYSTEM: Neurological exam was brief but nonfocal, tone is normal in all 4 extremities. Resting tremors noted. EXTREMITIES: There is no peripheral edema, clubbing, or cyanosis. Peripheral pulses are intact. - Labs CBC & Chem 7: 05/31/23 05:19 05/31/23 05:19 Labs: Abnormal Lab Results - Last 24 Hours (Table) 05/31/23 05/31/23 Range/Units 05:19 05:19 WBC 12.85 H (4.50-10.00) X 10*3/uL RBC 3.40 L (4.10-5.20) X 10*6/uL Hgb 9.5 L (12.0-15.0) g/dL Hct 30.1 L (37.2-46.3) % MCHC 31.6 L (32.0-37.0) g/dL RDW 15.7 H (11.5-14.5) % NRBC/100 WBC Diff 0.04 H (0.00-0.01) X 10*3/uL Sodium 148 H (135-145) mmol/L BUN 29.4 H (9.0-27.0) mg/dL BUN/Creatinine Ratio 36.75 H (12.00-20.00) Ratio Glucose 125 H (70-110) mg/dL Calcium 8.0 L (8.7-10.3) mg/dL AST 371 H (13-35) U/L ALT 289 H (8-44) U/L Alkaline Phosphatase 273 H (41-126) U/L Total Protein 5.6 L (6.2-8.2) g/dL Albumin 3.0 L (3.8-4.9) g/dL Albumin/Globulin Ratio 1.15 L (1.60-3.17) Ratio Microbiology - Last 24 Hours (Table) 05/25/23 23:15 Blood Culture - Final Blood 05/25/23 23:00 Blood Culture - Final Blood Assessment and Plan Plan: Acute hypoxemic respiratory failure secondary to volume overload, suspected pneumonia. Treated with diuretics and Zosyn. Oxygenation is stable and the patient remains on 40s of oxygen by nasal cannula. Procalcitonin level was elevated, suspect bacterial infection/pneumonia Acute febrile illness, secondary to above, recovered Suspected sepsis and septic shock, refractory to fluid resuscitation requiring vasopressors, recovered Suspected Alicia Almanzar virus Transaminitis mild worsening Recent outpatient treatment for urinary tract infection, with Bactrim Oral candidiasis History of developmental delay Resting tremors Thyroid nodule, an incidental finding History of hyperlipidemia Plan: Monitor LFTs ID is on the case and the patient can be transition to oral antibiotics, possibly Augmentin at time of discharge Wean down FiO2 as tolerated and the patient's current Oxygen flows at 4 L Titrate the FiO2 as tolerated We will continue to follow
[2023-05-31] MEDS: LACTULOSE 20 GM/30 ML CUP PO ONE (17:31)
--- NOTE | 2023-05-31 19:14 | P.PN ---
Progress Note - Text Progress Note Date: 05/31/23 Patient is a 73-year-old female [facility] resident with hypertension, dyslipidemia, psychotic disorder, and multiple other comorbid conditions who presented with acute confusion, weakness, falls, and fever. On arrival she was febrile with a temp of 102.3. Initial laboratory analysis was remarkable for sodium of 134 AST 280 ALT 40 and alkaline phosphatase of 360. Initial urinalysis showed 7 white blood cells. Patient tested negative for influenza A/B/RSV/COVID-19. Initial chest x-ray showed possible bronchitis or asthma with no focal infiltrates. CT head and cervical spine demonstrated no acute intracranial abnormality with rounded enlargement of the left lobe of the thyr oid gland measuring 3.3 cm. She was admitted for sepsis with suspected intra abdominal versus UTI source. She was hypotensive in the ER and received 2.5 L of crystalloid, she continued to have low blood pressures and required a norepinephrine drip. She was started on Zosyn. Patient was admitted to the ICU. Critical care was consulted. Gallbladder ultrasound was obtained which shows a heterogeneous liver with increased cortical echogenicity in the right kidney consistent with chronic medical renal disease. Her norepinephrine was able to be weaned by the morning of 05/27. She underwent CT abdomen and pelvis which showed no acute process. Testing revealed infectious mononucleosis. She had an episode of hypoxia on 05/30/24 and was given lasix 40 mg IVP X 1. Patient seen and examined at bedside. Her better than yesterday. She denies any pain or nausea. Discussed with nursing. Had 1 episode of low blood pressure overnight but has otherwise been stable. Had bowel movement yesterday. May 31: Sitting up in a recliner. Patient has baseline tremors. Eating fair. Tired. On IV Unasyn. Seen by physical therapy. Requiring maximal assist to get to the edge of the bed. As per pillowcase folder note patient at baseline does use a rollator. Active Medications Acetaminophen (Acetaminophen Tab 325 Mg Tab) 650 mg PO Q6HR PRN PRN Reason: Fever and/ or Mild Pain Last Admin: 05/27/23 16:43 Dose: 650 mg Albuterol Sulfate (Albuterol Nebulized 2.5 Mg/3 Ml) 2.5 mg INHALATION RT-QID PRN PRN Reason: Shortness Of Breath Or Wheezing Last Admin: 05/28/23 02:50 Dose: 2.5 mg Aripiprazole (Aripiprazole 2 Mg Tab) 2 mg PO DAILY [facility] Last Admin: 05/31/23 08:10 Dose: 2 mg Aspirin (Aspirin 81 Mg) 81 mg PO DAILY [facility] Last Admin: 05/31/23 08:10 Dose: 81 mg Atorvastatin Calcium (Atorvastatin 40 Mg Tab) 40 mg PO HS [facility] Last Admin: 05/30/23 21:11 Dose: 40 mg Carbidopa/Levodopa (Carbidopa-Levodopa 25-100 Mg 1 Each Tab) 1 each PO TID [facility] Last Admin: 05/31/23 16:32 Dose: 1 each Duloxetine HCl (Duloxetine Hcl 60 Mg Capsule.Dr) 60 mg PO BID [facility] Last Admin: 05/31/23 08:10 Dose: 60 mg Heparin Sodium (Porcine) (Heparin Sodium,Porcine 5,000 Unit/Ml 1 Ml Vial) 5,000 unit SQ Q8HR [facility] Last Admin: 05/31/23 16:32 Dose: 5,000 unit Piperacillin Sod/Tazobactam (Sod 3.375 gm/ Sodium Chloride) 100 mls @ 25 mls/hr IVPB Q8HR [facility]; Protocol Last Admin: 05/31/23 16:32 Dose: 25 mls/hr Ibuprofen (Ibuprofen 400 Mg Tab) 400 mg PO TID PRN PRN Reason: Fever Miscellaneous Information (Potassium Replacement Protocol 1 Each Misc) 1 each MISCELLANE DAILY PRN; Protocol PRN Reason: Per Protocol Naloxone HCl (Naloxone 0.4 Mg/Ml 1 Ml Vial) 0.2 mg IV Q2M PRN PRN Reason: Opioid Reversal Nystatin (Nystatin 100,000 Unit/Ml Susp 500,000 Unit/5 Ml Cup) 500,000 unit PO QID [facility]; Protocol Last Admin: 05/31/23 17:31 Dose: 500,000 unit Pantoprazole Sodium (Pantoprazole 40 Mg Tablet) 40 mg PO AC-BRKFST [facility] Last Admin: 05/31/23 06:35 Dose: 40 mg Propranolol HCl (Propranolol La 60 Mg Cap.Sa.24h) 60 mg PO DAILY [facility] Last Admin: 05/31/23 08:10 Dose: 60 mg Sodium Bicarbonate (Sodium Bicarbonate Tab 650 Mg Tab) 650 mg PO BID [facility] Last Admin: 05/31/23 08:10 Dose: 650 mg On examination: VITAL SIGNS: [97.4, 73, 18, 127/78, 94% on 4 L] GENERAL APPEARANCE: Sitting up in a recliner. Some tremors from. HEENT: Normal external appearance of nose and ear. Oral cavity normal EYES: Pupils equal. Conjunctiva normal. NECK: JVD not raised. Mass not palpable. RESPIRATORY: Respiratory effort normal. Lungs clear to auscultation. CARDIOVASCULAR: First and second sounds normal. No edema. ABDOMEN: Soft. Liver and spleen not palpable. No tenderness. No mass palpable. PSYCHIATRY: Able to answer simple questions NEUROLOGICAL: Tremors INVESTIGATIONS, reviewed in the clinical context: May 31: White count 12.8 hemoglobin 9.5 sodium 148 potassium 3.6 creatinine 0.8 AST 371 ALT 289 alkaline phosphatase 273 total bilirubin 0.7 EBV capsid IgM antibody: 78.5 CMV IgM/hepatitis acute screen: All negative CT abdomen pelvis: Diverticulosis. Uterine fibroid. Renal ultrasound: Nonspecific Gallbladder ultrasound: Increased cortical echogenicity in the right kidney. Gallbladder unremarkable CT head cervical spine: Rounded enlargement left lobe of the thyroid measuring 3.3 cm. Assessment/Plan: -Septic shock from infectious mononucleosis: Improved -Acute metabolic encephalopathy, improving -Acute infectious mononucleosis -Acute hepatitis/transaminitis, from infectious mononucleosis improving -Possible pneumonia suspecting gram-negative organism IV Zosyn. Being followed by pulmonary Oral candidiasis - Nystatin swish and swallow D # 5 Hyperchloremic metabolic acidosis. -Sodium bicarb to 650 mg twice daily Thyroid gland enlargement -Outpatient thyroid ultrasound once acute illness has resolved Follow-up with endocrinology Dr. Altamirano -Chronic: Developmental delay -Parkinsonism Sinemet -Anxiety/depression/psychotic disorder Abilify. BuSpar. Cymbalta. Ativan. -Dyslipidemia On Lipitor. Hold because of increased LFTs -Overactive bladder myrbetriq -Chronic gait dysfunction Uses a rollator at baseline Patient right now requiring full assist. At baseline does use a rollator. Will watch for at least 24 hours more as recommended by PT OT for rehab. Ordered incentive spirometry
[2023-05-31] MEDS: ENOXAPARIN 40 MG/0.4 ML SYRINGE SQ SCH (20:05)
--- NOTE | 2023-06-01 14:27 | P.PN ---
Subjective Progress Note Date: 06/01/23 Patient is a 73-year-old white female with past medical history significant for developmental delay, resting tremors, seizure disorder, hypertension, hyperlipidemia. She lives at a longterm. She is an unreliable historian. She has a legal guardian, which is her sister, who provides much of the infor mation. Patient resides at a longterm. Over the last week or so she has been more confused and weak. She has not been eating much. She had a fall on Wednesday. She was treated outpatient for UTI, and just completed a course of Bactrim. Patient was sent in via EMS for ER evaluation last night. On arrival, she was found to be febrile with a Tmax of 102.3 F. Urinalysis showed trace leukocytes, proteinuria, and trace hematuria. She does endorse some left flank tenderness. Chest x-ray showed borderline cardiomegaly, with mild interstitial densities, but without focal infiltrates. Negative for influenza, RSV, COVID on arrival. CBC on arrival: WBC count 9.8, hemoglobin 11.9, hematocrit 36.3, platelets 204. BMP on arrival: Sodium 134, potassium 4.6, chloride 102, serum bicarb 23, BUN 19, creatinine 1, glucose 119. LFTs mildly elevated including an AST of 280, ALT of 40, ALP of 361. Total bili 1.3. Pancreatic enzymes not elevated. Abdominal ultrasound does not show any obvious liver mass or biliary dilation or gallstones. No right-sided hydronephrosis. Lactic acid level 1.1. Normal saline currently infusing at 75 mL/h. She was noted to be hypotensive despite 2.5 L normal saline bolus. She was started on low-dose norepinephrine which is currently infusing at 0.03 mcg/kg/min, and for this reason was admitted to the intensive care unit. Patient is currently lying in bed, on room air, in no acute distress. She has a significant resting tremor. She is alert and oriented to self only. She is currently afebrile. Empirically covered on Zosyn. Blood and urine cultures are pending. The patient is seen today May 27, 2023 in follow-up in the intensive care unit. She is currently sitting up in bed. Awake and alert in no acute distress. She is maintaining O2 saturations in the 90s on 2 L/min per nasal cannula. She has normal saline at 125 MLS per hour. Her norepinephrine has been off since approximately 4 AM today. She remains on antibiotics in the form of Zosyn. Blood cultures are showing no growth. Chest x-ray revealed some atelectasis at the bases. CT scan of the abdomen revealed no acute process. Trace right pleural effusion. Diverticulosis without evidence of diverticulitis. Uterine fibroid. Renal ultrasound revealed no evidence of hydr onephrosis. White count 7.8. Hemoglobin 11.2. Platelets 187. Sodium 138. Potassium 4.3. Bicarb 17. BUN 11. Creatinine 0.55. AST 158. ALT 257. Alk phos 319. She remains on antibiotics in the form of Zosyn. Heparin for DVT prophylaxis. The patient is seen today May 28, 2023 in follow-up in the intensive care unit. She is awake and alert in no acute distress. She is sitting up in bed. She is maintaining O2 saturations in the 90s on 5 L/min per nasal cannula. Chest x-ray is showing some evidence of fluid volume overload. She is receiving normal saline at 125 MLS per hour. She is on antibiotics in the form of Zosyn. Heparin for DVT prophylaxis. Sodium 141. Potassium 4.8. Bicarb 10. BUN 17. Creatinine 0.85. Glucose 103. A ST 739. ALT 82. Alk phos 370. The patient is seen today May 29, 2023 in follow-up in the intensive care unit. She is currently sitting up in bed. Awake and alert in no acute distress. She is maintaining good O2 saturations in the 90s on 2 L/min per nasal cannula. She has normal saline at KVO. She is continued on Zosyn. She has not required any norepinephrine. She did diurese well from the Lasix yesterday. Currently in a negative balance. Chest x-ray reveals improved pulmonary vascular congestion and decreased small pleural effusions compared to previous. Patchy opacities suggesting airspace disease bilaterally more so on the left lung base. Procalcitonin 2.77. White count 12.1. Hemoglobin 10.8. Platelets 318. Sodium 141. Potassium 3.3. Bicarb 27. BUN 24. Creatinine 0.80. AST 436. ALT 134. Alk phos 304. Remains on heparin for DVT prophylaxis. The patient is seen today May 30, 2023 in follow-up on the regular medical floor. She was transferred out of the intensive care unit yesterday. She is currently sitting up in bed. Awake and alert. She is still requiring 5 L high flow nasal cannula to maintain O2 saturations in the 90s. Her procalcitonin was 2.77. She is also being worked up for possible Alicia-Almanzar virus. Blood cultures revealed no growth. Chest x-ray revealed cardiomegaly with slightly increased pulmonary vascular congestion. Increased basilar opacities suggestive of airspace disease with small pleural effusions. She was given Lasix today. Continued on Zosyn. Heparin for DVT prophylaxis. White count 13.4. Hemoglobin 10.6. Platelets 374. Sodium 145. Potassium 5.0. Bicarb 22. BUN 33. Creatinine 0.74. AST 697. ALT 166. On today's evaluation of 05/31/2023, the patient is being seen in follow-up regarding hypoxic failure and volume overload. The patient is doing well and she is calm and comfortable. The patient has no specific complaints. The pat ient is currently on40s of oxygen by nasal cannula with a pulse ox of 94%. The chest x-ray from yesterday was reviewed and the patient was found to have some cardiomegaly and increased pulm vascular markings and some limited nonspecific patchy densities bilaterally. The patient is currently on IV Zosyn. The white cell count is down to 12.5 and the creatinine is stable at 0.8 and her liver function are still abnormal. The bilirubin is at 0.7 yet the AST is at 371 and ALT is at 289 and the numbers are higher compared to yesterday. Hemoglobin stable at 9.5. CAT scan of the abdomen and pelvis that was done on 05/26/2023 showed no acute intra-abdominal abnormalities. There was diverticulo sis without any diverticulitis and there was a uterine fibroid. She is quite debilitated. She has resting tremors. She has developmental delay. No hepatotoxic agents at this point in time. Patient is being seen by infectious disease regarding fever and the patient completed the course of Bactrim for UTI and the urine cultures on 05/26/2022 were negative. The patient also has an EBV antigen is positive that could have been affecting the patient's abnormal LFTs. The procalcitonin level was also elevated at 2.77 concerning for bacterial pneumonia and the patient was covered with IV Zosyn. On 06/01/2023, the patient sitting up in a chair and she is calm and comfortable. No significant respiratory distress. She remains on IV Zosyn.Pulse ox on 4 L in the order of 99 to 100% and the patient has no significant cough or sputum production. Most recent chest x-ray from 05/30/2023 showed cardiomegaly and some increased pulm vascular marking increased airspace disease with small effusion the lung base bilaterally. The patient otherwise is doing well and she is stable. No new labs from today. Most recent procalcitonin level has dropped down to 0.35. LFTs are being monitored. There was some abnormal rise in the AST and ALT. The medical group is monitoring the liver function test. Objective - Vital Signs Vital signs: Vital Signs Temp 98.4 F 06/01/23 07:26 Pulse 72 06/01/23 07:26 Resp 17 06/01/23 07:26 BP 124/76 06/01/23 07:26 Pulse Ox 100 06/01/23 07:26 FiO2 Intake & Output 05/31/23 06/01/23 06/01/23 18:59 06:59 18:59 Intake Total 200 480 Balance 200 480 Intake: IV 200 Piperacillin-Tazobactam 3 200 .375 gm In Sodium Chloride 0.9% 100 ml @ 25 mls/hr IVPB Q8HR [facility] Rx# :[id number] Oral 480 Other: Voiding Method Diaper Diaper Incontinent Incontinent External Catheter External Catheter # Voids 1 2 # Bowel Movements 1 - Exam GENERAL EXAM: Alert, developmentally delayed 73-year-old female, resting tremors, on 5 L nasal cannula, in no apparent distress. HEAD: Normocephalic and atraumatic EYES: Normal reaction of pupils, equal size. NOSE: Clear with pink turbinates. Oropharynx: No significant posterior pharynx erythema or exudates. NECK: No masses, no JVD. CHEST: No chest wall deformity. LUNGS: Equal air entry with mild end expiratory wheezes, crackles in the posterior bases. No conversational dyspnea. CVS: S1 and S2 normal with no audible murmur, regular rhythm. No extra heart sounds ABDOMEN: No hepatosplenomegaly, active bowel sounds, no guarding or rigidity. SPINE: No scoliosis or deformity SKIN: No rashes CENTRAL NERVOUS SYSTEM: Neurological exam was brief but nonfocal, tone is normal in all 4 extremities. Resting tremors noted. EXTREMITIES: There is no peripheral edema, clubbing, or cyanosis. Peripheral pulses are intact. - Labs CBC & Chem 7: 05/31/23 05:19 05/31/23 05:19 Labs: Abnormal Lab Results - Last 24 Hours (Table) 06/01/23 Range/Units 05:46 Procalcitonin 0.35 H (0.02-0.09) ng/mL Assessment and Plan Plan: Acute hypoxemic respiratory failure secondary to volume overload, suspected pneumonia. Treated with diuretics and Zosyn. Oxygenation is stable and the patient remains on 4 L of oxygen by nasal cannula. Procalcitonin level was elevated, suspect bacterial infection/pneumonia Acute febrile illness, secondary to above, recovered Suspected sepsis and septic shock, refractory to fluid resuscitation requiring vasopressors, recovered Suspected Alicia Almanzar virus Transaminitis mild worsening Recent outpatient treatment for urinary tract infection, with Bactrim Oral candidiasis History of developmental delay Resting tremors Thyroid nodule, an incidental finding History of hyperlipidemia Plan: Wean the FiO2 as tolerated currently on 4 L of oxygen by nasal cannula and the patient is completing course of IV Zosyn Monitor LFTs ID is on the case and the patient can be transition to oral antibiotics, possibly Augmentin at time of discharge Rest of the medications remain unchanged We will continue to follow
--- NOTE | 2023-06-01 15:00 | P.EN ---
Patient needs full assistance with activity. Therefore will require a wheelchair. Prescription given for the same.
--- NOTE | 2023-06-01 15:41 | P.PN ---
Subjective Progress Note Date: 06/01/23 Principal diagnosis: Reason for follow-up is fever elevated liver enzymes Patient is a 73-year-old female with a past medical history significant for hypertension hyperlipidemia seizure disorder presenting to the ER for evaluation of fever and weakness, patient also noticed to have fever and elevated liver enzymes, did have a CT of abdominal pelvis did not show any acute process with an abdominal pelvis. On today's evaluation that is 06/01/2023,the patient remains to be afebrile, patient is on 4 L nasal cannula supplemental oxygen and denies any shortness of breath no chest pain did have occasional cough.Patient denies having any nausea or vomiting, no abdominal pain and no diarrhea has been reported, patient feeling better. No new labs has been obtained today procalcitonin 0.35 initially number was 2.77 blood culture negative Objective - Vital Signs Vital signs: Vital Signs Temp 98.4 F 06/01/23 07:26 Pulse 72 06/01/23 07:26 Resp 17 06/01/23 07:26 BP 124/76 06/01/23 07:26 Pulse Ox 100 06/01/23 07:26 FiO2 Intake & Output 05/31/23 06/01/23 06/01/23 18:59 06:59 18:59 Intake Total 200 480 Balance 200 480 Intake: IV 200 Piperacillin-Tazobactam 3 200 .375 gm In Sodium Chloride 0.9% 100 ml @ 25 mls/hr IVPB Q8HR [facility] Rx# :[id number] Oral 480 Other: Voiding Method Diaper Diaper Incontinent Incontinent External Catheter External Catheter # Voids 1 2 # Bowel Movements 1 - Exam GENERAL DESCRIPTION: An elderly female lying in bed in no distress RESPIRATORY SYSTEM: Unlabored breathing , decreased breath sounds at bases HEART: S1 S2 regular rate and rhythm , ABDOMEN: Soft , no tenderness EXTREMITIES: No edema feet - Labs CBC & Chem 7: 05/31/23 05:19 05/31/23 05:19 Labs: Abnormal Lab Results - Last 24 Hours (Table) 06/01/23 Range/Units 05:46 Procalcitonin 0.35 H (0.02-0.09) ng/mL Assessment and Plan (1) Fever Current Visit: Yes Status: Acute Code(s): R50.9 - FEVER, UNSPECIFIED SNOMED Code(s): 526742142 (2) Transaminitis Current Visit: Yes Status: Acute Code(s): R74.01 - ELEVATION OF LEVELS OF LIVER TRANSAMINASE LEVELS SNOMED Code(s): 925226831 (3) Acute Alicia Almanzar virus (EBV) infection Current Visit: Yes Status: Acute Code(s): B27.00 - GAMMAHERPESVIRAL MONONUCLEOSIS WITHOUT COMPLICATION SNOMED Code(s): 245295169 (4) Pneumonia Current Visit: Yes Status: Acute Code(s): J18.9 - PNEUMONIA, UNSPECIFIED ORGANISM SNOMED Code(s): 823592537 Plan: 1patient presented hospital with fever mental status changes in this patient recently completed a course of Bactrim DS for the UTI urine is not significantly positive patient did have elevated liver enzymes and also noticed to have some abdominal distention concerning for possible abdominal source 2- CT of abdominal pelvis with contrast did not show any acute intra-abdominal pathology, 3-patient fever pattern has improved, EBV early antigen is positive clinical picture is suggestive of EBV infection and the patient seem to have shown imp rovement and liver enzymes are improving we will continue to monitor closely 4oral thrush patient to continue with the nystatin swish and swallow 5-patient also have respiratory symptoms hypoxemia pulmonary filtrate elevated procalcitonin and possible component of pneumonia patient slowly clinical improving to continue Zosyn finishing therapy with Augmentin discussed with admitting physician Dictation was produced using [employer] dictation software. please excuse any grammatical, word or spelling errors. Time with Patient: Less than 30
--- NOTE | 2023-06-01 16:08 | P.PN ---
Progress Note - Text Progress Note Date: 06/01/23 Patient is a 73-year-old female long-term resident with hypertension, dyslipidemia, psychotic disorder, and multiple other comorbid conditions who presented with acute confusion, weakness, falls, and fever. On arrival she was febrile with a temp of 102.3. Initial laboratory analysis was remarkable for sodium of 134 AST 280 ALT 40 and alkaline phosphatase of 360. Initial urinalysis showed 7 white blood cells. Patient tested negative for influenza A/B/RSV/COVID-19. Initial chest x-ray showed possible bronchitis or asthma with no focal infiltrates. CT head and cervical spine demonstrated no acute intracranial abnormality with rounded enlargement of the left lobe of the thyr oid gland measuring 3.3 cm. She was admitted for sepsis with suspected intra abdominal versus UTI source. She was hypotensive in the ER and received 2.5 L of crystalloid, she continued to have low blood pressures and required a norepinephrine drip. She was started on Zosyn. Patient was admitted to the ICU. Critical care was consulted. Gallbladder ultrasound was obtained which shows a heterogeneous liver with increased cortical echogenicity in the right kidney consistent with chronic medical renal disease. Her norepinephrine was able to be weaned by the morning of 05/27. She underwent CT abdomen and pelvis which showed no acute process. Testing revealed infectious mononucleosis. She had an episode of hypoxia on 05/30/24 and was given lasix 40 mg IVP X 1. Patient seen and examined at bedside. Her better than yesterday. She denies any pain or nausea. Discussed with nursing. Had 1 episode of low blood pressure overnight but has otherwise been stable. Had bowel movement yesterday. May 31: Sitting up in a recliner. Patient has baseline tremors. Eating fair. Tired. On IV Unasyn. Seen by physical therapy. Requiring maximal assist to get to the edge of the bed. As per window caser note patient at baseline does use a rollator. June 01: Comfortable. Tolerating diet. Discussed with ID. Patient to be switched over to Augmentin for 3 days for discharge. Spoke to patient's Sister Carla on the phone. At length. Questions answered. Spoke to the caregiver at the [facility]. They do not have staff for today will take the patient tomorrow. Communicated with vp digital marketing social media and crm. Patient is a full assist for any ambulation. Therefore will require wheelchair upon discharge. Active Medications Acetaminophen (Acetaminophen Tab 325 Mg Tab) 650 mg PO Q6HR PRN PRN Reason: Fever and/ or Mild Pain Last Admin: 05/27/23 16:43 Dose: 650 mg Albuterol Sulfate (Albuterol Nebulized 2.5 Mg/3 Ml) 2.5 mg INHALATION RT-QID PRN PRN Reason: Shortness Of Breath Or Wheezing Last Admin: 05/28/23 02:50 Dose: 2.5 mg Aripiprazole (Aripiprazole 2 Mg Tab) 2 mg PO DAILY [facility] Last Admin: 06/01/23 07:49 Dose: 2 mg Aspirin (Aspirin 81 Mg) 81 mg PO DAILY [facility] Last Admin: 06/01/23 07:49 Dose: 81 mg Carbidopa/Levodopa (Carbidopa-Levodopa 25-100 Mg 1 Each Tab) 1 each PO TID [facility] Last Admin: 06/01/23 15:47 Dose: 1 each Duloxetine HCl (Duloxetine Hcl 60 Mg Capsule.Dr) 60 mg PO BID [facility] Last Admin: 06/01/23 07:50 Dose: 60 mg Enoxaparin Sodium (Enoxaparin 40 Mg/0.4 Ml Syringe) 40 mg SQ DAILY [facility] Last Admin: 06/01/23 07:50 Dose: 40 mg Piperacillin Sod/Tazobactam (Sod 3.375 gm/ Sodium Chloride) 100 mls @ 25 mls/hr IVPB Q8HR [facility]; Protocol Last Admin: 06/01/23 15:47 Dose: 25 mls/hr Ibuprofen (Ibuprofen 400 Mg Tab) 400 mg PO TID PRN PRN Reason: Fever Miscellaneous Information (Potassium Replacement Protocol 1 Each Misc) 1 each MISCELLANE DAILY PRN; Protocol PRN Reason: Per Protocol Naloxone HCl (Naloxone 0.4 Mg/Ml 1 Ml Vial) 0.2 mg IV Q2M PRN PRN Reason: Opioid Reversal Nystatin (Nystatin 100,000 Unit/Ml Susp 500,000 Unit/5 Ml Cup) 500,000 unit PO QID [facility]; Protocol Last Admin: 06/01/23 15:47 Dose: 500,000 unit Pantoprazole Sodium (Pantoprazole 40 Mg Tablet) 40 mg PO AC-BRKFST [facility] Last Admin: 06/01/23 06:21 Dose: 40 mg Propranolol HCl (Propranolol La 60 Mg Cap.Sa.24h) 60 mg PO DAILY [facility] Last Admin: 06/01/23 07:49 Dose: 60 mg Sodium Bicarbonate (Sodium Bicarbonate Tab 650 Mg Tab) 650 mg PO BID MIGUELITO Last Admin: 06/01/23 07:50 Dose: 650 mg On examination: VITAL SIGNS: 98.4, 72, 17, 124 x 76, 100% on 4 L GENERAL APPEARANCE: Sitting up in a recliner. Chronic tremors HEENT: Normal external appearance of nose and ear. Oral cavity normal EYES: Pupils equal. Conjunctiva normal. NECK: JVD not raised. Mass not palpable. RESPIRATORY: Respiratory effort normal. Lungs clear to auscultation. CARDIOVASCULAR: First and second sounds normal. No edema. ABDOMEN: Soft. Liver and spleen not palpable. No tenderness. No mass palpable. PSYCHIATRY: Able to answer simple questions NEUROLOGICAL: Tremors INVESTIGATIONS, reviewed in the clinical context: June 01: Procalcitonin 0.35 May 31: White count 12.8 hemoglobin 9.5 sodium 148 potassium 3.6 creatinine 0.8 AST 371 ALT 289 alkaline phosphatase 273 total bilirubin 0.7 EBV capsid IgM antibody: 78.5 CMV IgM/hepatitis acute screen: All negative CT abdomen pelvis: Diverticulosis. Uterine fibroid. Renal ultrasound: Nonspecific Gallbladder ultrasound: Increased cortical echogenicity in the right kidney. Ga llbladder unremarkable CT head cervical spine: Rounded enlargement left lobe of the thyroid measuring 3.3 cm. Assessment/Plan: -Septic shock from infectious mononucleosis: Improved -Acute metabolic encephalopathy,: Improved -Acute infectious mononucleosis: Improving -Acute hepatitis/transaminitis, from infectious mononucleosis improving -Possible pneumonia suspecting gram-negative organism IV Zosyn. Being followed by pulmonary Oral candidiasis - Nystatin swish and swallow Discharged on Diflucan for 5 days Hyperchloremic metabolic acidosis. -Sodium bicarb to 650 mg twice daily Thyroid gland enlargement -Outpatient thyroid ultrasound once acute illness has resolved Follow-up with endocrinology Dr. Altamirano -Chronic: Developmental delay -Parkinsonism Sinemet -Anxiety/depression/psychotic disorder Abilify. BuSpar. Cymbalta. Ativan. -Dyslipidemia On Lipitor. Hold because of increased LFTs -Overactive bladder myrbetriq -Chronic gait dysfunction Uses a rollator at baseline Total time spent today about 60 minutes with over 45 minutes of discussion. Plan for discharge tomorrow
--- NOTE | 2023-06-02 12:26 | P.PN ---
Subjective Progress Note Date: 06/02/23 Principal diagnosis: Reason for follow-up is fever elevated liver enzymes Patient is a 73-year-old female with a past medical history significant for hypertension hyperlipidemia seizure disorder presenting to the ER for evaluation of fever and weakness, patient also noticed to have fever and elevated liver enzymes, did have a CT of abdominal pelvis did not show any acute process with an abdominal pelvis. On today's evaluation that is 06/02/2023, the patient continues to be afebrile, the patient is on 2 L nasal cannula oxygen and breathing comfortably, the Pt denies having any chest pain did have occasional cough, the patient denies having any abdominal pain no vomiting or any diarrhea has been reported by the nursing staff, patient mention feeling better wants to go home. No new labs has been repeated today Objective - Vital Signs Vital signs: Vital Signs Temp 97.8 F 06/02/23 07:42 Pulse 84 06/02/23 08:40 Resp 16 06/02/23 08:40 BP 132/80 06/02/23 07:42 Pulse Ox 98 06/02/23 08:40 FiO2 Intake & Output 06/01/23 06/02/23 06/02/23 18:59 06:59 18:59 Intake Total 440 110 Balance 440 110 Intake: Oral 440 110 Other: Voiding Method Diaper Incontinent # Voids 2 3 # Bowel Movements 2 - Exam GENERAL DESCRIPTION: An elderly female lying in bed in no distress RESPIRATORY SYSTEM: Unlabored breathing , decreased breath sounds at bases HEART: S1 S2 regular rate and rhythm , ABDOMEN: Soft , no tenderness EXTREMITIES: No edema feet - Labs CBC & Chem 7: 05/31/23 05:19 05/31/23 05:19 Assessment and Plan (1) Fever Current Visit: Yes Status: Acute Code(s): R50.9 - FEVER, UNSPECIFIED SNOMED Code(s): 373516412 (2) Transaminitis Current Visit: Yes Status: Acute Code(s): R74.01 - ELEVATION OF LEVELS OF LIVER TRANSAMINASE LEVELS SNOMED Code(s): 013047998 (3) Acute Alicia Almanzar virus (EBV) infection Current Visit: Yes Status: Acute Code(s): B27.00 - GAMMAHERPESVIRAL MONONUCLEOSIS WITHOUT COMPLICATION SNOMED Code(s): 059768916 (4) Pneumonia Current Visit: Yes Status: Acute Code(s): J18.9 - PNEUMONIA, UNSPECIFIED ORGANISM SNOMED Code(s): 557017658 Plan: 1patient presented hospital with fever mental status changes in this patient recently completed a course of Bactrim DS for the UTI urine is not significantly positive patient did have elevated liver enzymes and also noticed to have some abdominal distention concerning for possible abdominal source 2- CT of abdominal pelvis with contrast did not show any acute intra-abdominal pathology, 3-patient fever pattern has improved, EBV early antigen is positive clinical picture is suggestive of EBV infection and the patient seem to have shown i mprovement and liver enzymes are improving we will continue to monitor closely 4oral thrush patient to continue with the nystatin swish and swallow x 5 days 5-patient also have respiratory symptoms hypoxemia pulmonary filtrate elevated procalcitonin and possible component of pneumonia patient has shown improvement on Zosyn short course of oral Augmentin on discharge discussed with admitting physician yesterday Dictation was produced using [employer] dictation software. please excuse any grammatical, word or spelling errors. Time with Patient: Less than 30
[2023-06-02 13:46] VITALS: BP 117/68; PULSE 75; RESP 20; TEMP 98.6
--- NOTE | 2023-06-02 17:17 | P.DS ---
Providers Date of admission: 05/26/23 03:58 Expected date of discharge: 06/02/23 Attending physician: Angelito Ace Consults: 05/25/23 23:13 Consult Physician Stat Consulting Provider: Chance López Consult Reason/Comments: fever Do you want consulting provider notified?: Yes, Notify in am 05/26/23 03:52 Consult Physician Routine Consulting Provider: Yovany Arriaga Consult Reason/Comments: severe sepsis , refractory hypotension Do you want consulting provider notified?: Yes Primary care physician: Philip Rogers MD Hospital Course: Patient is a 73-year-old female detention resident with hypertension, dyslipidemia, psychotic disorder, and multiple other comorbid conditions who presented with acute confusion, weakness, falls, and fever. On arrival she was febrile with a temp of 102.3. Initial laboratory analysis was remarkable for sodium of 134 AST 280 ALT 40 and alkaline phosphatase of 360. Initial urinalysis showed 7 white blood cells. Patient tested negative for influenza A/B/RSV/COVID-19. Initial chest x-ray showed possible bronchitis or asthma with no focal infiltrates. CT head and cervical spine demonstrated no acute intracranial abnormality with rounded enlargement of the left lobe of the thyroid gland measuring 3.3 cm. She was admitted for sepsis with suspected intra abdominal versus UTI source. She was hypotensive in the ER and received 2.5 L of crystalloid, she continued to have low blood pressures and required a norepinephrine drip. She was started on Zosyn. Patient was admitted to the ICU. Critical care was consulted. Gallbladder ultrasound was obtained which shows a heterogeneous liver with increased cortical echogenicity in the right kidney consistent with chronic medical renal disease. Her norepinephrine was able to be weaned by the morning of 05/27. She underwent CT abdomen and pelvis which showed no acute process. Testing revealed infectious mononucleosis. She had an episode of hypoxia on 05/30/24 and was given lasix 40 mg IVP X 1. Patient seen and examined at bedside. Her better than yesterday. She denies any pain or nausea. Discussed with nursing. Had 1 episode of low blood pressure overnight but has otherwise been stable. Had bowel movement yesterday. May 31: Sitting up in a recliner. Patient has baseline tremors. Eating fair. Tired. On IV Unasyn. Seen by physical therapy. Requiring maximal assist to get to the edge of the bed. As per rn case management note patient at baseline does use a rollator. June 01: Comfortable. Tolerating diet. Discussed with ID. Patient to be switched over to Augmentin for 3 days for discharge. Spoke to patient's Sister Carla on the phone. At length. Questions answered. Spoke to the caregiver at the [facility]. They do not have staff for today will take the patient tomorrow. Communicated with social sciences department chair. Patient is a full assist for any ambulation. Therefore will require wheelchair upon discharge. June 02: Laying in bed. Comfortable. Tolerating diet. Patient will be going back to her assisted living today. As patient not able to self propel. Will need a wheelchair. Prescribed. On examination: VITAL SIGNS: 98.6, 75, 29, 1 one 7 x 68, 95% on 2 L GENERAL APPEARANCE: Reclining in bed chronic tremors HEENT: Normal external appearance of nose and ear. Oral cavity normal EYES: Pupils equal. Conjunctiva normal. NECK: JVD not raised. Mass not palpable. RESPIRATORY: Respiratory effort normal. Lungs clear to auscultation. CARDIOVASCULAR: First and second sounds normal. No edema. ABDOMEN: Soft. Liver and spleen not palpable. No tenderness. No mass palpable. PSYCHIATRY: Able to answer simple questions NEUROLOGICAL: Tremors INVESTIGATIONS, reviewed in the clinical context: June 01: Procalcitonin 0.35 May 31: White count 12.8 hemoglobin 9.5 sodium 148 potassium 3.6 creatinine 0.8 AST 371 ALT 289 alkaline phosphatase 273 total bilirubin 0.7 EBV capsid IgM antibody: 78.5 CMV IgM/hepatitis acute screen: All negative CT abdomen pelvis: Diverticulosis. Uterine fibroid. Renal ultrasound: Nonspecific Gallbladder ultrasound: Increased cortical echogenicity in the right kidney. Gallbladder unremarkable CT head cervical spine: Rounded enlargement left lobe of the thyroid measuring 3.3 cm. Assessment/Plan: -Septic shock from infectious mononucleosis: Improved -Acute metabolic encephalopathy,: Improved -Acute infectious mononucleosis: Improving -Acute hepatitis/transaminitis, from infectious mononucleosis improving -Possible pneumonia suspecting gram-negative organism IV Zosyn. Being followed by pulmonary Oral candidiasis - Nystatin swish and swallow Discharged on Diflucan for 5 days Hyperchloremic metabolic acidosis. -Sodium bicarb to 650 mg twice daily Thyroid gland enlargement -Outpatient thyroid ultrasound once acute illness has resolved Follow-up with endocrinology Dr. Altamirano -Chronic: Developmental delay -Parkinsonism Sinemet -Anxiety/depression/psychotic disorder Abilify. BuSpar. Cymbalta. Ativan. -Dyslipidemia On Lipitor. Hold because of increased LFTs -Overactive bladder myrbetriq -Chronic gait dysfunction Uses a rollator at baseline Disposition: [facility]. Wheelchair. Labs: CBC BMP: 5 days Plan - Discharge Summary New Discharge Prescriptions: New Amoxic-Pot Clav 875-125Mg [Augmentin 875-125] 1 tab PO BID #6 tab Losartan Potassium [Cozaar] 100 mg PO HS #30 tab Fluconazole [Diflucan] 100 mg PO DAILY #5 tablet Sodium Bicarbonate Tab 650 mg PO BID #20 tab Continue Gabapentin 300 mg PO TID Aspirin [Aspir-Low] 81 mg PO DAILY LORazepam [Ativan] 0.5 mg PO DAILY ARIPiprazole [Abilify] 5 mg PO HS@2100 DULoxetine HCL [Cymbalta] 60 mg PO BID Magnesium Hydroxide [Milk of Magnesia] 2,400 mg PO HS PRN PRN Reason: Constipation Ketoconazole 2% Cream [Nizoral 2%] 1 applic TOPICAL BID PRN PRN Reason: flare up Ibuprofen [Motrin] 400 mg PO Q6HR PRN PRN Reason: Pain bisacodyL [Dulcolax] 10 mg RECTAL DAILY PRN PRN Reason: Constipation Ammonium Lactate Lotion [Lac-Hydrin 12% Lotion] 1 applic TOPICAL DAILY PRN PRN Reason: Dry Skin Mirabegron [Myrbetriq] 25 mg PO DAILY Cyanocobalamin (Vitamin B-12) [Vitamin B-12] 1,000 mcg PO DAILY Carbidopa-Levodopa 25-100 mg [Sinemet 25-100 mg] 1 tab PO TID Cholecalciferol (Vitamin D3) [Vitamin D3 (50 Mcg = 2000 Iu)] 50 mcg PO DAILY busPIRone HCL [Buspar] 30 mg PO BID Athletes Foot 1% Powder [place] 1 spray TOPICAL BID ARIPiprazole [Abilify] 2 mg PO DAILY Alendronate Sodium [Fosamax] 70 mg PO SA Discontinued Propranolol HCl [Inderal LA] 120 mg PO DAILY Jorgito-Gest 500 - 1,000 mg PO TID PRN PRN Reason: Indigestion Acetaminophen Tab [Tylenol Tab] 1,000 mg PO Q4H PRN PRN Reason: Pain Or Fever > 100.5 diphenhydrAMINE [Benadryl] 25 mg PO QID PRN PRN Reason: Allergy Symptoms Atorvastatin [Lipitor] 40 mg PO HS Discharge Medication List Aspirin [Aspir-Low] 81 mg PO DAILY 04/19/15 [History] Gabapentin 300 mg PO TID 04/19/15 [History] ARIPiprazole [Abilify] 5 mg PO HS@2100 11/06/16 [History] DULoxetine HCL [Cymbalta] 60 mg PO BID 11/06/16 [History] LORazepam [Ativan] 0.5 mg PO DAILY 11/06/16 [History] ARIPiprazole [Abilify] 2 mg PO DAILY 05/26/23 [History] Alendronate Sodium [Fosamax] 70 mg PO SA 05/26/23 [History] Ammonium Lactate Lotion [Lac-Hydrin 12% Lotion] 1 applic TOPICAL DAILY PRN 05/26/23 [History] Athletes Foot 1% Powder [place] 1 spray TOPICAL BID 05/26/23 [History] Carbidopa-Levodopa 25-100 mg [Sinemet 25-100 mg] 1 tab PO TID 05/26/23 [History] Cholecalciferol (Vitamin D3) [Vitamin D3 (50 Mcg = 2000 Iu)] 50 mcg PO DAILY 05/26/23 [History] Cyanocobalamin (Vitamin B-12) [Vitamin B-12] 1,000 mcg PO DAILY 05/26/23 [History] Ibuprofen [Motrin] 400 mg PO Q6HR PRN 05/26/23 [History] Ketoconazole 2% Cream [Nizoral 2%] 1 applic TOPICAL BID PRN 05/26/23 [History] Magnesium Hydroxide [Milk of Magnesia] 2,400 mg PO HS PRN 05/26/23 [History] Mirabegron [Myrbetriq] 25 mg PO DAILY 05/26/23 [History] bisacodyL [Dulcolax] 10 mg RECTAL DAILY PRN 05/26/23 [History] busPIRone HCL [Buspar] 30 mg PO BID 05/26/23 [History] Amoxic-Pot Clav 875-125Mg [Augmentin 875-125] 1 tab PO BID #6 tab 06/01/23 [Rx] Fluconazole [Diflucan] 100 mg PO DAILY #5 tablet 06/01/23 [Rx] Losartan Potassium [Cozaar] 100 mg PO HS #30 tab 06/01/23 [Rx] Sodium Bicarbonate Tab 650 mg PO BID #20 tab 06/01/23 [Rx] Follow up Appointment(s)/Referral(s): [facility], [NON-STAFF] - As Needed Philip Rogers MD [Primary Care Provider] - 1-2 days (Please call for follow- up appointment.) David Altamirano MD [REFERRING] - 1 Week (Office stated patient needs a referral from your primary care provider for enlarged left thyroid lobe.) [facility] [NON-STAFF] - As Needed (wheelchair) Patient Instructions/Handouts: Mononucleosis (GEN) Discharge Disposition: HOME WITH HOME HEALTH SERVICES
--- NOTE | 2023-06-02 19:11 | P.PN ---
Subjective Progress Note Date: 06/02/23 Patient is a 73-year-old white female with past medical history significant for developmental delay, resting tremors, seizure disorder, hypertension, hyperlipidemia. She lives at a halfway. She is an unreliable historian. She has a legal guardian, which is her sister, who provides much of the infor mation. Patient resides at a halfway. Over the last week or so she has been more confused and weak. She has not been eating much. She had a fall on Wednesday. She was treated outpatient for UTI, and just completed a course of Bactrim. Patient was sent in via EMS for ER evaluation last night. On arrival, she was found to be febrile with a Tmax of 102.3 F. Urinalysis showed trace leukocytes, proteinuria, and trace hematuria. She does endorse some left flank tenderness. Chest x-ray showed borderline cardiomegaly, with mild interstitial densities, but without focal infiltrates. Negative for influenza, RSV, COVID on arrival. CBC on arrival: WBC count 9.8, hemoglobin 11.9, hematocrit 36.3, platelets 204. BMP on arrival: Sodium 134, potassium 4.6, chloride 102, serum bicarb 23, BUN 19, creatinine 1, glucose 119. LFTs mildly elevated including an AST of 280, ALT of 40, ALP of 361. Total bili 1.3. Pancreatic enzymes not elevated. Abdominal ultrasound does not show any obvious liver mass or biliary dilation or gallstones. No right-sided hydronephrosis. Lactic acid level 1.1. Normal saline currently infusing at 75 mL/h. She was noted to be hypotensive despite 2.5 L normal saline bolus. She was started on low-dose norepinephrine which is currently infusing at 0.03 mcg/kg/min, and for this reason was admitted to the intensive care unit. Patient is currently lying in bed, on room air, in no acute distress. She has a significant resting tremor. She is alert and oriented to self only. She is currently afebrile. Empirically covered on Zosyn. Blood and urine cultures are pending. The patient is seen today May 27, 2023 in follow-up in the intensive care unit. She is currently sitting up in bed. Awake and alert in no acute distress. She is maintaining O2 saturations in the 90s on 2 L/min per nasal cannula. She has normal saline at 125 MLS per hour. Her norepinephrine has been off since approximately 4 AM today. She remains on antibiotics in the form of Zosyn. Blood cultures are showing no growth. Chest x-ray revealed some atelectasis at the bases. CT scan of the abdomen revealed no acute process. Trace right pleural effusion. Diverticulosis without evidence of diverticulitis. Uterine fibroid. Renal ultrasound revealed no evidence of hydr onephrosis. White count 7.8. Hemoglobin 11.2. Platelets 187. Sodium 138. Potassium 4.3. Bicarb 17. BUN 11. Creatinine 0.55. AST 158. ALT 257. Alk phos 319. She remains on antibiotics in the form of Zosyn. Heparin for DVT prophylaxis. The patient is seen today May 28, 2023 in follow-up in the intensive care unit. She is awake and alert in no acute distress. She is sitting up in bed. She is maintaining O2 saturations in the 90s on 5 L/min per nasal cannula. Chest x-ray is showing some evidence of fluid volume overload. She is receiving normal saline at 125 MLS per hour. She is on antibiotics in the form of Zosyn. Heparin for DVT prophylaxis. Sodium 141. Potassium 4.8. Bicarb 10. BUN 17. Creatinine 0.85. Glucose 103. A ST 739. ALT 82. Alk phos 370. The patient is seen today May 29, 2023 in follow-up in the intensive care unit. She is currently sitting up in bed. Awake and alert in no acute distress. She is maintaining good O2 saturations in the 90s on 2 L/min per nasal cannula. She has normal saline at KVO. She is continued on Zosyn. She has not required any norepinephrine. She did diurese well from the Lasix yesterday. Currently in a negative balance. Chest x-ray reveals improved pulmonary vascular congestion and decreased small pleural effusions compared to previous. Patchy opacities suggesting airspace disease bilaterally more so on the left lung base. Procalcitonin 2.77. White count 12.1. Hemoglobin 10.8. Platelets 318. Sodium 141. Potassium 3.3. Bicarb 27. BUN 24. Creatinine 0.80. AST 436. ALT 134. Alk phos 304. Remains on heparin for DVT prophylaxis. The patient is seen today May 30, 2023 in follow-up on the regular medical floor. She was transferred out of the intensive care unit yesterday. She is currently sitting up in bed. Awake and alert. She is still requiring 5 L high flow nasal cannula to maintain O2 saturations in the 90s. Her procalcitonin was 2.77. She is also being worked up for possible Alicia-Almanzar virus. Blood cultures revealed no growth. Chest x-ray revealed cardiomegaly with slightly increased pulmonary vascular congestion. Increased basilar opacities suggestive of airspace disease with small pleural effusions. She was given Lasix today. Continued on Zosyn. Heparin for DVT prophylaxis. White count 13.4. Hemoglobin 10.6. Platelets 374. Sodium 145. Potassium 5.0. Bicarb 22. BUN 33. Creatinine 0.74. AST 697. ALT 166. On today's evaluation of 05/31/2023, the patient is being seen in follow-up regarding hypoxic failure and volume overload. The patient is doing well and she is calm and comfortable. The patient has no specific complaints. The pat ient is currently on40s of oxygen by nasal cannula with a pulse ox of 94%. The chest x-ray from yesterday was reviewed and the patient was found to have some cardiomegaly and increased pulm vascular markings and some limited nonspecific patchy densities bilaterally. The patient is currently on IV Zosyn. The white cell count is down to 12.5 and the creatinine is stable at 0.8 and her liver function are still abnormal. The bilirubin is at 0.7 yet the AST is at 371 and ALT is at 289 and the numbers are higher compared to yesterday. Hemoglobin stable at 9.5. CAT scan of the abdomen and pelvis that was done on 05/26/2023 showed no acute intra-abdominal abnormalities. There was diverticulo sis without any diverticulitis and there was a uterine fibroid. She is quite debilitated. She has resting tremors. She has developmental delay. No hepatotoxic agents at this point in time. Patient is being seen by infectious disease regarding fever and the patient completed the course of Bactrim for UTI and the urine cultures on 05/26/2022 were negative. The patient also has an EBV antigen is positive that could have been affecting the patient's abnormal LFTs. The procalcitonin level was also elevated at 2.77 concerning for bacterial pneumonia and the patient was covered with IV Zosyn. On 06/01/2023, the patient sitting up in a chair and she is calm and comfortable. No significant respiratory distress. She remains on IV Zosyn.Pulse ox on 4 L in the order of 99 to 100% and the patient has no significant cough or sputum production. Most recent chest x-ray from 05/30/2023 showed cardiomegaly and some increased pulm vascular marking increased airspace disease with small effusion the lung base bilaterally. The patient otherwise is doing well and she is stable. No new labs from today. Most recent procalcitonin level has dropped down to 0.35. LFTs are being monitored. There was some abnormal rise in the AST and ALT. The medical group is monitoring the liver function test. On today's evaluation of 06/02/2023, no specific complaints and the patient condition remains stable. No respiratory difficulties. The patient's procalcitonin level is dropped down to 0.35. The patient will likely get discharged home today. The patient was receiving IV Zosyn and the patient will be completing a course of Augmentin and a course of nystatin and Diflucan regarding oropharyngeal candidiasis. LFTs need to be monitored on an outpatient basis. Lipitor is currently on hold because of her abnormal LFTs. The patient is going to [facility] home. Objective - Vital Signs Vital signs: Vital Signs Temp 97.8 F 06/02/23 07:42 Pulse 69 06/02/23 07:42 Resp 16 06/02/23 07:42 BP 132/80 06/02/23 07:42 Pulse Ox 98 06/02/23 08:40 FiO2 Intake & Output 06/01/23 06/02/23 06/02/23 18:59 06:59 18:59 Intake Total 440 110 Balance 440 110 Intake: Oral 440 110 Other: # Voids 2 3 # Bowel Movements 2 - Exam GENERAL EXAM: Alert, developmentally delayed 73-year-old female, resting tremors, on 5 L nasal cannula, in no apparent distress. HEAD: Normocephalic and atraumatic EYES: Normal reaction of pupils, equal size. NOSE: Clear with pink turbinates. Oropharynx: No significant posterior pharynx erythema or exudates. NECK: No masses, no JVD. CHEST: No chest wall deformity. LUNGS: Equal air entry with mild end expiratory wheezes, crackles in the posterior bases. No conversational dyspnea. CVS: S1 and S2 normal with no audible murmur, regular rhythm. No extra heart sounds ABDOMEN: No hepatosplenomegaly, active bowel sounds, no guarding or rigidity. SPINE: No scoliosis or deformity SKIN: No rashes CENTRAL NERVOUS SYSTEM: Neurological exam was brief but nonfocal, tone is normal in all 4 extremities. Resting tremors noted. EXTREMITIES: There is no peripheral edema, clubbing, or cyanosis. Peripheral pulses are intact. - Labs CBC & Chem 7: 05/31/23 05:19 05/31/23 05:19 Assessment and Plan Plan: Acute hypoxemic respiratory failure secondary to volume overload, suspected pneumonia. Treated with diuretics and Zosyn. Oxygenation is stable and the patient remains on 4 L of oxygen by nasal cannula. Procalcitonin level was elevated, suspect bacterial infection/pneumonia. The patient was treated with IV Zosyn. The patient will be transitioned to Augmentin. Procalcitonin level is. Acute febrile illness, secondary to above, recovered Suspected sepsis and septic shock, refractory to fluid resuscitation requiring vasopressors, recovered Suspected Alicia Almanzar virus Transaminitis mild worsening, currently off statins Recent outpatient treatment for urinary tract infection Oral candidiasis, on nystatin and Diflucan History of developmental delay Resting tremors Thyroid nodule, an incidental finding History of hyperlipidemia Plan: The patient is to be discharged on a course of Augmentin, and Diflucan Monitor LFTs on outpatient basis and Lipitor has been discontinued Procalcitonin level has dropped Rest of the medications remain unchanged We likely discharge patient today.
--- NOTE | 2023-06-03 21:32 | CDI ---
Documentation Clarification Form Date: 06/03/2023 09:11:11 PM From: Yumiko Rivers Phone: Admit Date: 05/26/2023 03:58:00 AM Patient Name: Tabitha Eldridge Visit Number: [id number] Discharge Date: 06/02/2023 01:48:00 PM ATTENTION: The Clinical Documentation Specialists (CDI) and [facility] Coding Staff appreciate your assistance in clarifying documentation. Please respond to the clarification below the line at the bottom and electronically sign. The CDI & [facility] Coding staff will review the response and follow-up if needed. Please note: Queries are made part of the Legal Health Record. If you have any questions, please contact the author of this message via ITS. Dr. Angelito Ace Increased cortical echogenicity in the right kidney consistent with chronic medical renal disease is documented per Progress Note 05/27. Additional clarification regarding the stage of CKD is requested. History/Risk Factors: 73yo F, Septic shock,infectious mononucleosis, OA, HTN, HLD, metabolic encephalopathy, PNA, oral candidiasis, development delay, AHRF, gram-PNA Clinical Indicators: BUN: 05/25 19 05/26 18 05/27 11 05/28 17 05/29 24 05/30 33 05/31 29.4 CR: 05/25 1.00 05/26 0.90 05/27 0.55 05/28 0.85 05/29 0.80 05/30 0.74 05/31 0.8 AfAm GFR: 05/25 65 05/26 73 05/27 >90 05/28 78 05/29 84 05/30 >90 Non AfAm GFR: 05/25 56 05/26 64 05/27 >90 05/28 68 05/29 73 05/30 81 Treatment: Gallbladderultrasoundwas obtained which shows a heterogeneous liver with increased cortical echogenicity in the right kidney consistent with chronic medical renal disease. Please clarify the stage of the CKD, if known: [ ] CKD Stage 1 [ ] CKD Stage 2 [ ] Other, please specify NO CKD [ ] Unable to determine Reference: National [employer] Stage 1 eGFR = 90 and kidney damage for =3 months Stage 2 eGFR 60-89 and kidney damage for =3 months Stage 3a eGFR 45-59 and kidney damage for =3 months Stage 3b eGFR 30-44 and kidney damage for =3 months Stage 4 eGFR 15-29 r and kidney damage for =3 months Stage 5 eGFR <15 and kidney damage for =3 months (Template last revised: April 2023) MTDD
== END 2023-06-02 13:48 | disposition home health service (06) | DRG 871 ==
LOC: EC 18:44 → 6NMEDSUR 23:16 → OBSVTOIN 05-26 03:58 → 2SICU 05-26 04:02 → 4SSUR 05-30 01:10
PROVIDERS: ADMIT Hospitalist; ATTEND Hospitalist
PROC: 3E033XZ Introduction of Vasopressor into Peripheral Vein, Percutaneous Approach (ICD-10-PCS; principal; 2023-05-26)
DX: A41.9 Sepsis, unspecified organism (principal); G93.41 Metabolic encephalopathy; J96.01 Acute respiratory failure with hypoxia; R65.21 Severe sepsis with septic shock; J15.69 Pneumonia due to other Gram-negative bacteria; J44.0 Chronic obstructive pulmonary disease with (acute) lower respiratory infection; B37.0 Candidal stomatitis; B17.8 Other specified acute viral hepatitis; F29 Unspecified psychosis not due to a substance or known physiological condition; G40.909 Epilepsy, unspecified, not intractable, without status epilepticus; E04.1 Nontoxic single thyroid nodule; F32.A Depression, unspecified; I11.9 Hypertensive heart disease without heart failure; E87.8 Other disorders of electrolyte and fluid balance, not elsewhere classified; G20.C Parkinsonism, unspecified; B27.00 Gammaherpesviral mononucleosis without complication; E78.5 Hyperlipidemia, unspecified; D25.9 Leiomyoma of uterus, unspecified; E87.70 Fluid overload, unspecified; F89 Unspecified disorder of psychological development; B35.3 Tinea pedis; G25.2 Other specified forms of tremor; N28.1 Cyst of kidney, acquired; N28.89 Other specified disorders of kidney and ureter; N32.81 Overactive bladder; F41.9 Anxiety disorder, unspecified; R26.9 Unspecified abnormalities of gait and mobility; R29.6 Repeated falls; R13.10 Dysphagia, unspecified; W19.XXXA Unspecified fall, initial encounter; Z87.440 Personal history of urinary (tract) infections; Z79.82 Long term (current) use of aspirin; Z11.52 Encounter for screening for COVID-19; Z79.899 Other long term (current) drug therapy; Z89.029 Acquired absence of unspecified finger(s); Z91.81 History of falling; Z79.83 Long term (current) use of bisphosphonates
CPT/HCPCS: 36415; 70450; 71045; 71046; 72125; 74177; 76705; 76770; 80053; 80074; 81001; 82150; 83605; 83690; 83735; 84132; 84145; 85025; 85027; 86140; 86644; 86645; 86663; 86664; 86665; 87040; 87086; 87636; 93005; 94640; 94760; 96361; 96365; 96366; 96367; 96375; 99285